=== PATIENT | female | born 1955 | race Caucasian/White ===

== ENCOUNTER 2016-11-24 11:49 | Inpatient (IN) | payer MEDICARE, OTHER ==
[~2016-11-24] VITALS: Ht 165.1 cm; Wt 133.7 kg
[~2016-11-24 11:49] MED LIST: ACTO30TA7 PO; ASPI325T28 PO; BACL-67 PO; BENA10TA2 PO; CLON1TAB PO; COUM1TAB17 PO; COUM2.5T11 PO; GLIM4TAB PO; HYDR200T3 PO; HYDR7.5T66 PO; INVO100T PO; KLON1TAB PO; LEVA750T PO; LEVO137T2 PO; LOVE0.8I3 SC; METF1000 PO; OMEP20CA3 PO; Plaquenil PO; RANI75TA PO; REQU1TAB16 PO; RITU10VLL IV; ROPI1TA PO; ROPI1TAB PO; ROXI1TAB2 PO; SERT50TA PO; SERTRALINE 100 MG TAB PO SCH; SPIR25TA2 PO; TRIL135C6 PO; VICOTAB4 PO; VITA200015 PO; WARF-21 PO; XELJ5TAB PO; ZETI10TA2 PO; ZOLO100T PO; [UNRECOGNIZED DRUG - REMARK] PO
[2016-11-24 12:33] LABS: BASO % 0.9 % (0.0-1.0); EOS # 0.1 K/mm3 (0.0-0.50); LARGE UNSTAINED CELL % 0.7 % (0.0-4.0); LYMPH # 0.6 K/mm3 (1.5-4.5); LYMPH % 15.8 % (24.0-44.0); MEAN CORPUSCULAR HEMOGLOBIN 28.6 pg (27.0-33.0); MEAN CORPUSCULAR VOLUME 89.3 fl (80.0-96.0); MONO # 0.2 K/mm3 (0.0-0.8); MONO % 4.5 % (0.0-5.0); NEUTROPHILS # 2.5 K/mm3 (1.8-7.7); NEUTROPHILS % 74.1 % (36.0-66.0); PLATELET COUNT, AUTOMATED 141 k/mm3 (150-450); RED CELL DISTRIBUTION WIDTH 15.3 % (11.5-14.5); WHITE BLOOD COUNT 3.4 K/mm3 (4.0-10.0)
[2016-11-24 12:50] LABS: ANION GAP 4 MEQ/L (8-16); BLOOD UREA NITROGEN 19 MG/DL (7-18); CALCIUM LEVEL 9.6 MG/DL (8.5-10.1); CARBON DIOXIDE LEVEL 26 MEQ/L (21-32); CHLORIDE LEVEL 108 MEQ/L (98-107); CREATININE FOR GFR 0.97 MG/DL (0.55-1.02); GLOMERULAR FILTRATION RATE > 60.0 (>51); GLUCOSE, FASTING 172 MG/DL (70-105); POTASSIUM SERUM 4.4 MEQ/L (3.5-5.1); SODIUM LEVEL 138 MEQ/L (136-145)
[2016-11-24 12:57] LABS: INR 2.4
[2016-11-24] MEDS ORDERED: GABA-283 PO (12:58)
[2016-11-24] MEDS ORDERED: MIRA1TAB3 PO (12:58)
[2016-11-24] MEDS ORDERED: AZAT5TAB PO (12:58)
[2016-11-24] MEDS ORDERED: ACTO30TA7 PO (12:58)
[2016-11-24] MEDS ORDERED: ACTE400I IV (12:59)
[2016-11-24] MEDS ORDERED: ASPIRIN 81 MG CHEW TABLET PO ONE (13:00)
[2016-11-24] MEDS ORDERED: VITA100066 PO (14:12)
[2016-11-24] MEDS ORDERED: FENO1CAP2 PO (14:12)
[2016-11-24] MEDS ORDERED: PIOG15TA3 PO (14:12)
[2016-11-24] MEDS ORDERED: GABA600T PO (14:12)
[2016-11-24] MEDS ORDERED: TOUJ1.2I SC (14:12)
[2016-11-24] MEDS ORDERED: WARF-18 PO (14:15)
[2016-11-24] MEDS ORDERED: WARF-23 PO (14:16)
--- NOTE | 2016-11-24 14:46 | REP ---
?REASON: History of stroke. COMPARISON: 12/08/2014 the latest prior. The technique utilized in obtaining the radiograph has magnified the cardiac silhouette and accentuated the interstitial markings. The lung murillo are clear and unchanged. The cardiomediastinal silhouette is unchanged. The osseous structures are stable and intact. IMPRESSION: No evidence of acute cardiopulmonary disease. Signed by David Heath DO 11/24/2016 03:25 P
--- NOTE | 2016-11-24 14:49 | REP ---
REASON: CVA. COMPARISON: None. There is either a prominent left frontoparietal sulcus or there is a wedge-shaped area of low density in the left frontoparietal region measuring 2.5 cm. There is no shift of the midline structures. There are no extra-axial fluid collections. The deep white matter is otherwise unremarkable. There is no ventriculomegaly. There is no skull fracture. The imaged paranasal sinuses and mastoid air cells are clear. IMPRESSION: Area of low density in the left frontoparietal region as described above. This potentially represents an area of acute nonhemorrhagic infarction. Signed by David Heath DO 11/24/2016 03:25 P
[2016-11-24 15:03] LABS: CHOLESTEROL LEVEL 218 MG/DL (<200); TRIGLYCERIDES LEVEL 336 MG/DL (<150)
[2016-11-24] MEDS ORDERED: GLUCAGON FOR INJ 1 MG VIAL (J1610) SC PRN (16:00)
[2016-11-24] MEDS ORDERED: GLUCOSE 4 GM CHEW TABLET PO PRN (16:00)
[2016-11-24] MEDS ORDERED: clonazePAM 1 MG TAB PO PRN (16:00)
[2016-11-24] MEDS ORDERED: DEXTROSE 50% 50 ML SYRINGE IV PRN (16:00)
--- NOTE | 2016-11-24 17:30 | REPUSA ---
MRA of the brain Clinical History: Facial Numbness. Technique: [id number] MRA images of the brain were obtained without administration of contrast. 3 -D MIP images were also obtained. Findings: The vascular structures extending from the distal carotid and vertebrobasilar arterial syst ems, through the [place] of [place], demonstrate normal caliber and contour. There is no evidence of an eurysm, stenosis, or thrombosis. Impression: Unremarkable MRA examination of the brain.
--- NOTE | 2016-11-24 17:40 | REPUSA ---
MRI of the Brain clinical history: facial numbness. Technique: Multiecho multiplanar MRI images of the brain were obtained without administration of cont rast. Diffusion weighted images with ADC mapping was also obtained. Findings: The ventricles and sulci are symmetric bilaterally. The brain parenchyma demonstrates tiny foci of T2 hyperintensity in the subcortical white matter, but otherwise demonstrates uniform and normal signal on all sequences. There is no midline shift, mass effect, or extra-axial fluid collection. The midli ne intracranial structures do not demonstrate any gross abnormalities. The cervical cranial junction is intact. The orbits are unremarkable. The visualized paranasal sinuses and mastoid air cells are cl ear. The osseous structures and superficial soft tissues are unremarkable. The vascular structures de monstrate appropriate flow voids. Impression: No acute findings. Tiny sub cortical T2 hyperintense foci likely represent minimal chroni c small vessel ischemic changes. Dr. Ryan was notified of these findings at 5:30 PM on November 24, 2016. The CT described an acute inf arct in the left frontal region, which is not appreciated on the diffusion weighted images on this cu rrent MRI.
[2016-11-24] MEDS: SPIRONOLACTONE 25 MG TAB PO SCH (18:43)
[2016-11-24] MEDS: HumaLOG INSULIN (NovoLOG) PER UNIT SC SCH ×2 (18:44→21:31)
[2016-11-24] MEDS: WARFARIN SOD 5 MG TAB PO SCH (18:44)
[2016-11-24 19:55] VITALS: BP_SYST 120; BP_SYST 125; BP_SYST 157; BP_DIAS 67; BP_DIAS 73; BP_DIAS 80
--- NOTE | 2016-11-24 21:26 | HPE ---
DATE OF ADMISSION: 11/24/2016 REASON FOR ADMISSION: Facial numbness. PRIMARY CARE PROVIDER: Dr. Sims HISTORY OF PRESENT ILLNESS: The patient is a 60-year-old female, past medical history significant for type 2 diabetes, restless leg syndrome, history of deep venous thrombosis (DVT), pulmonary embolus (PE), hypertension, anxiety, rheumatoid arthritis, presented to the emergency room complaining of facial tingling and numbness on the left side that started earlier this morning. The patient stated that yesterday evening she felt like her left eye was droopy but it was not. She woke up this morning with more numbness and tingling over her left side of the face. She presented to the emergency room. Initial imaging CT of the head showed area of low density in the left frontoparietal region potentially representing an area of non hemorrhagic infarct. Dr. Garcia was consulted from the emergency room. He recommended an MRI, MRA of the head and the patient was admitted under hospitalist service. The patient denied any other focal deficits or weakness and denied any dizziness. Denied any blurry vision or double vision. No other symptoms. REVIEW OF SYSTEMS: 12 point review of systems was obtained all of which was negative except for those mentioned above. PAST MEDICAL HISTORY: Significant for Sj gren's disease, rheumatoid arthritis, restless leg syndrome, type 2 diabetes on oral medications, hypothyroidism, hypertension, hyperlipidemia, anxiety, history of DVT and PE on chronic Coumadin. PAST SURGICAL HISTORY: Significant for left knee surgeries, parathyroid surgery and cholecystectomy. ALLERGIES: Patient is allergic to QUININE, reaction nausea, and STATIN reaction, worsening of her restless leg syndrome. SOCIAL HISTORY: The patient used to smoke, quit 18 years ago. Drinks alcohol very rarely. Lives at home with her father living with her. HOME MEDICATIONS: Include: - Actemra 400 mg IV monthly - azathioprine 150 mg at bedtime - baclofen 20 mg at bedtime - benazepril 10 mg daily - Invokana 100 mg daily - vitamin D3 1000 units daily - clonazepam 1 mg by mouth nightly as needed for insomnia - Zetia 10 mg at bedtime - fenofibric acid 135 mg by mouth at bedtime - gabapentin 600 mg by mouth twice a day - Synthroid 137 mcg by mouth daily - metformin 1000 mg by mouth twice a day - pioglitazone 50 mg daily - Mirapex 1 mg twice a day - Zoloft 100 mg by mouth at bedtime - spironolactone 25 mg by mouth twice a day - Toujeo 80 units subcutaneously daily - Coumadin 5 mg 3 days and 2.5 mg on 1 day PHYSICAL FINDINGS: Vital signs: On admission: Temperature 97.4, pulse 92, respiratory rate 18, blood pressure is 142/68, pulse oximetry 95% on room air. HEENT: Pupils equal, round, reactive to light and accommodation. Neck: Supple. No jugular venous distention (JVD). Lungs: Clear to auscultation bilaterally. Abdomen: Soft, nontender, nondistended. Cardiac: Regular rate and rhythm. Extremities: No clubbing, cyanosis or edema. Neurologic: Cranial nerves II-XII grossly intact. No focal deficits in upper or lower extremities. Normal speech. Per patient she has normal gait. Denies any gait instability. LABORATORY FINDINGS: WBC 3.4, hemoglobin 15.6, hematocrit 48.7, platelet count 141, sodium 138, potassium 4.4, chloride 108, BUN 19, creatinine 0.97, fasting glucose 172, troponin less than 0.02, triglycerides 336, cholesterol 218, LDL 110, TSH 1.8. IMAGING STUDIES: CT scan as above. Chest x-ray showed no evidence of acute cardiopulmonary disease. Brain MRI, official report is not available yet, but Dr. Preston from radiology called me and the patient has no acute findings on MRI or MRA. ASSESSMENT/PLAN: 1. Facial numbness, unknown etiology at this time. Dr. Garcia is consulted. The patient's MRI/MRA showed no evidence of acute nonhemorrhagic strokes. We will continue to monitor the patient on telemetry. Continue neurologic checks every 4 hours. Carotid ultrasound is pending. Echo is pending. 2. History of hypertension. Continue the patient's home medication. 3. History of diabetes. We will start the patient on consistent carbohydrate diet and insulin sliding scale before food and at bedtime. 4. History of hyperlipidemia. Continue the patient's home medication. 5. History of anxiety. Continue the patient's home medication. 6. History of pulmonary embolus (PE), deep venous thrombosis (DVT). The patient is to be chronically on anticoagulation. Her INR today is 2.4. Will continue the patient on Coumadin 5 mg by mouth daily. 7. Restless leg syndrome. 8. Rheumatoid arthritis. 9. Sj gren's disease. The patient follows up with rheumatology in [place]. 10. Hypothyroidism. Continue the patient's home medication. 11. Deep venous thrombosis (DVT) prophylaxis. The patient is normally on Coumadin daily. The patient will be seen by Dr. Michelle Solis in the morning.
[2016-11-24] MEDS: SERTRALINE 100 MG TAB PO SCH (21:55)
[2016-11-24] MEDS: EZETIMIBE 10 MG TAB (ZETIA) PO SCH (21:55)
[2016-11-24] MEDS: GABAPENTIN 300 MG CAP PO SCH (21:55)
[2016-11-24] MEDS: PRAMIPEXOLE 1 MG TAB PO SCH (21:55)
[2016-11-24] MEDS: azaTHIOprine 50 MG TAB (J7500) PO SCH (21:56)
[2016-11-24] MEDS: BACLOFEN 10 MG TAB PO SCH (21:56)
[2016-11-25 00:23] VITALS: BP 104/52
[2016-11-25 04:00] VITALS: BP 116/69
[2016-11-25] MEDS: LEVOTHYROXINE 0.137 MG TAB (137MCG) PO SCH (06:32)
--- NOTE | 2016-11-25 06:32 | REP ---
Stroke symptoms. Echogenic material is seen within and along the parada of the carotid arteries particularly in the carotid bulb region bilaterally. Some of the echogenic material casts an acoustic shadow consistent with calcific deposition. Right Left CCA Systolic 73.2 49.0 cm/s CCA Diastolic 15.8 8.9 cm/s ICA Systolic 59.2 50.0 cm/s ICA Diastolic 11.9 9.3 cm/s ICA/CCA Ratio 0.81 1.02 cm/s Analysis of the spectral wave forms shows antegrade flow in both vertebral arteries. There is no evidence of significant spectral broadening. IMPRESSION: Both soft and calcified plaque causes less than 50% stenosis in the internal carotid artery bilaterally. This is according the NASCET consensus criteria. Signed by David Heath DO 11/25/2016 03:40 P
[2016-11-25] MEDS: HumaLOG INSULIN (NovoLOG) PER UNIT SC SCH ×4 (07:24→21:00)
[2016-11-25 07:51] LABS: INR 2.53
[2016-11-25 08:00] VITALS: BP 123/56
[2016-11-25 08:04] LABS: BASO % 0.6 % (0.0-1.0); EOS # 0.2 K/mm3 (0.0-0.50); EOS % 5.2 % (0.0-3.0); LARGE UNSTAINED CELL # 0.1 K/mm3 (0.0-0.4); LARGE UNSTAINED CELL % 1.6 % (0.0-4.0); LYMPH # 0.6 K/mm3 (1.5-4.5); LYMPH % 19.7 % (24.0-44.0); MEAN CORPUSCULAR HEMOGLOBIN 29.1 pg (27.0-33.0); MEAN CORPUSCULAR HGB CONC 32.6 g/dl (32.0-36.5); MEAN CORPUSCULAR VOLUME 89.2 fl (80.0-96.0); MONO # 0.2 K/mm3 (0.0-0.8); MONO % 6.1 % (0.0-5.0); NEUTROPHILS # 2.2 K/mm3 (1.8-7.7); NEUTROPHILS % 66.9 % (36.0-66.0); PLATELET COUNT, AUTOMATED 119 k/mm3 (150-450); RED CELL DISTRIBUTION WIDTH 15.4 % (11.5-14.5); WHITE BLOOD COUNT 3.2 K/mm3 (4.0-10.0)
[2016-11-25 08:20] LABS: ALBUMIN 3.7 GM/DL (3.2-5.2); ALBUMIN/GLOBULIN RATIO 1.23 (1.00-1.93); ALKALINE PHOSPHATASE 84 U/L (45-117); ALT/SGPT 53 U/L (12-78); ANION GAP 8 MEQ/L (8-16); AST/SGOT 58 U/L (15-37); BILIRUBIN,TOTAL 0.7 MG/DL (0.2-1.0); BLOOD UREA NITROGEN 19 MG/DL (7-18); CALCIUM LEVEL 9.8 MG/DL (8.5-10.1); CARBON DIOXIDE LEVEL 27 MEQ/L (21-32); CHLORIDE LEVEL 104 MEQ/L (98-107); CREATININE FOR GFR 0.97 MG/DL (0.55-1.02); GLOMERULAR FILTRATION RATE > 60.0 (>51); GLUCOSE, FASTING 257 MG/DL (70-105); POTASSIUM SERUM 4.7 MEQ/L (3.5-5.1); SODIUM LEVEL 139 MEQ/L (136-145); TOTAL PROTEIN 6.7 GM/DL (6.4-8.2)
[2016-11-25] MEDS: PRAMIPEXOLE 1 MG TAB PO SCH ×2 (09:02→21:21)
[2016-11-25] MEDS: VITAMIN D 1,000 INTERNATIONAL UNITS TABLET PO SCH (09:02)
[2016-11-25] MEDS: SPIRONOLACTONE 25 MG TAB PO SCH ×2 (09:02→17:49)
[2016-11-25] MEDS: GABAPENTIN 300 MG CAP PO SCH ×2 (09:02→21:21)
[2016-11-25 11:50] VITALS: BP 114/66
--- NOTE | 2016-11-25 15:07 | IPN ---
DATE: 11/25/2016 SUBJECTIVE: This is a 60-year-old female who was admitted overnight for left facial paresthesia. She had CT of the head that was suggestive of CVA; however, MRI of the brain was negative. Since admission, reports intermittent episodes of left facial numbness, which as significantly improved. Denies any blurry vision, diplopia, transient vision loss, nausea, weakness or paresthesia to her extremities. Endorses migraine headache, which is worse with light. REVIEW OF SYSTEMS: Denies any chest pain, shortness of breath, palpitations, fevers, chills, night sweats, diarrhea or constipation. OBJECTIVE: VITAL SIGNS: Blood pressure 114/66, heart rate 68, temperature 97.7, respiration rate 18, pulse oximetry 93% on room air. Intake and output the last 24 hours is 480 and 1100. Body Mass Index (BMI) 30.6. GENERAL: The patient is lying in bed comfortable. No acute distress. She is alert, awake, oriented times three. Pleasant, cooperative. HEENT: Normocephalic, atraumatic. Moist oral mucosa. Fair dentition with some missing teeth. Extraocular movements intact. Pupils are equal and reactive to light. Neck is supple. Large neck. No jugular venous distention (JVD). Trachea midline. CHEST: Symmetric chest rise. No accessory muscle use. Breath sounds were diminished bilaterally but clear sounding. HEART: Regular rate and rhythm with normal S1, S2. Could not appreciate murmurs, rubs or gallops. ABDOMEN: Obese. Nontender, nondistended. Bowel wounds present. No guarding. No rebound. Mid abdomen with healed incisional scar, reportedly it is from her prior cholecystectomy many years ago. EXTREMITIES: No pedal edema. Pedal pulses present bilaterally. NEUROLOGIC: Cranial nerves II through XII grossly intact. Strength is 5/5 in all extremities. Sensory is intact. PSYCHIATRIC: Normal affect. SKIN: Without rashes or lesions. LABORATORY DATA: WBC 3.2, hemoglobin 15.3, hematocrit 47, platelets 119, decreased from 141 yesterday. Sodium 139, potassium 4.7, chloride 104, carbon dioxide 27, BUN 19, creatinine 0.97, fasting glucose 257, calcium 9.8, magnesium 2, total bilirubin 0.7, AST 58, ALT 53, alkaline phosphatase 84. Cardiac markers, first set, negative. PT 27.3, INR 2.53. Fingerstick glucoses have been ranging [address] of the head showed low density in the left frontal parietal region, potentially represents an area of acute non hemorrhagic infarction. Chest x-ray without evidence of acute cardiopulmonary disease. Brain MRI showed vasculature structure extending from the distal carotid and vertebral basilar systems through the [place] of [place] demonstrating normal caliber and contour, no evidence of aneurysm, stenosis or thrombosis. MRI of the brain showed no acute findings. Tiny subcortical T2 hyperintensity, likely represents minimal chronic small vessel ischemic changes. CT described an acute infarct on the left frontal region is not appreciated on effusion weighted images on MRI. Vascular duplex showed both soft and calcified plaque causing less than 50% stenosis in the internal carotid arteries bilaterally. IMPRESSION/PLAN: Ms. Pina is a 60-year-old female with a past medical history of pulmonary embolism and deep vein thrombosis (DVT), rheumatoid arthritis, who presented yesterday for left facial paresthesia. 1. Left facial paresthesia. Etiology unclear. Her episode has since resolved. MRI did not show evidence of an infarct. For now, the patient will be continued to be monitored closely on telemetry. We will recheck cardiac markers. Echo is pending. Followup neurology recommendations. In the meantime, continue Zebeta. She could not tolerate statin in the past due to worsening her restless leg disorder. Blood pressure continues to be reasonable. 2. Hypertension. Continue spironolactone twice a day. 3. Type 2 diabetes. Continue insulin sliding scale and carbohydrate diet. 4. History of PEE and deep vein thrombosis (DVT). The patient reportedly has a recurrent history of this and has been on life long anticoagulation. INR continues to be therapeutic. Continue Coumadin 5 mg by mouth daily. 5. Rheumatoid arthritis. Continue Imuran 150 mg at night. Followup with director transition in [place] and also receives Actemra, previously was on 400 mg and the dose was recently increased to 800 mg monthly. Her last injection was two weeks ago. 6. Anxiety and depression. Continue Zoloft 100 mg at night. 7. Hypothyroidism. Continue levothyroxine 137 mcg daily. 8. Diabetic neuropathy. Continue gabapentin 600 mg twice a day. 9. Restless leg syndrome. Continue Baclofen 20 mg at night, Mirapex 1 mg twice a day. 10. Vitamin D deficiency. Continue vitamin D supplementation. 11. Obstructive sleep apnea. Continue home continuous positive airway pressure (CPAP). The patient has brought in her home machine. 12. Irritable bowel syndrome. Symptoms have been well controlled. 13. Thrombocytopenia. Platelet level today shows mildly decreased compared to admission. We will continue to monitor for now. The patient is on Coumadin for a history of pulmonary embolism and deep vein thrombosis (DVT). No evidence of bleeding. 14. DVT prophylaxis. She is on Coumadin therapeutic dose for history of PE and DVT. My preceptor for this patient encounter was Dr. Solis. The preceptor was physically present in the building during the encounter and was fully available. As needed, all aspects of the patient interview, examination, medical decision making process, and medical care plan development were reviewed and approved by the preceptor. The preceptor is aware and concurs with the plan as stated in the body of this note and will attest to such by his/her cosignature.
[2016-11-25 16:00] VITALS: BP 152/71
[2016-11-25] MEDS: WARFARIN SOD 5 MG TAB PO SCH (17:49)
[2016-11-25 20:39] VITALS: BP 132/61
[2016-11-25] MEDS: SERTRALINE 100 MG TAB PO SCH (21:21)
[2016-11-25] MEDS: azaTHIOprine 50 MG TAB (J7500) PO SCH (21:21)
[2016-11-25] MEDS: BACLOFEN 10 MG TAB PO SCH (21:21)
[2016-11-25] MEDS: EZETIMIBE 10 MG TAB (ZETIA) PO SCH (21:21)
[2016-11-25] MEDS ORDERED: SLF 3 ML SYR IV PRN (22:15)
[2016-11-26 00:05] VITALS: BP 135/73
[2016-11-26 04:19] VITALS: BP 125/73
--- NOTE | 2016-11-26 04:40 | ECGEPIP ---
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
[2016-11-26 05:24] LABS: BASO % 0.9 % (0.0-1.0); EOS # 0.2 K/mm3 (0.0-0.50); EOS % 5.4 % (0.0-3.0); LARGE UNSTAINED CELL # 0.1 K/mm3 (0.0-0.4); LARGE UNSTAINED CELL % 2.1 % (0.0-4.0); LYMPH # 0.8 K/mm3 (1.5-4.5); LYMPH % 19.3 % (24.0-44.0); MEAN CORPUSCULAR HGB CONC 33.1 g/dl (32.0-36.5); MEAN CORPUSCULAR VOLUME 87.8 fl (80.0-96.0); MONO # 0.3 K/mm3 (0.0-0.8); MONO % 6.6 % (0.0-5.0); NEUTROPHILS # 2.6 K/mm3 (1.8-7.7); NEUTROPHILS % 65.7 % (36.0-66.0); PLATELET COUNT, AUTOMATED 125 k/mm3 (150-450); RED CELL DISTRIBUTION WIDTH 15.2 % (11.5-14.5); WHITE BLOOD COUNT 3.9 K/mm3 (4.0-10.0)
[2016-11-26 05:31] LABS: INR 2.58
[2016-11-26] MEDS: LEVOTHYROXINE 0.137 MG TAB (137MCG) PO SCH (05:45)
[2016-11-26 05:48] LABS: ALBUMIN 3.6 GM/DL (3.2-5.2); ALBUMIN/GLOBULIN RATIO 1.29 (1.00-1.93); ALKALINE PHOSPHATASE 83 U/L (45-117); ALT/SGPT 53 U/L (12-78); ANION GAP 8 MEQ/L (8-16); AST/SGOT 55 U/L (15-37); BILIRUBIN,TOTAL 0.6 MG/DL (0.2-1.0); BLOOD UREA NITROGEN 19 MG/DL (7-18); CALCIUM LEVEL 9.1 MG/DL (8.5-10.1); CARBON DIOXIDE LEVEL 27 MEQ/L (21-32); CHLORIDE LEVEL 106 MEQ/L (98-107); GLOMERULAR FILTRATION RATE > 60.0 (>51); GLUCOSE, FASTING 178 MG/DL (70-105); MAGNESIUM LEVEL 1.7 MG/DL (1.8-2.4); POTASSIUM SERUM 3.8 MEQ/L (3.5-5.1); SODIUM LEVEL 141 MEQ/L (136-145); TOTAL PROTEIN 6.4 GM/DL (6.4-8.2)
[2016-11-26] MEDS ORDERED: SLF 3 ML SYR IV SCH (06:00)
[2016-11-26] MEDS: MAG SULF 1GM/100ML (MAG RUN) 1 GM in APPROPRIATE DILUENT 1 EA IV SCH ×2 (06:39→08:07)
[2016-11-26 08:00] VITALS: BP 133/68
[2016-11-26] MEDS: GABAPENTIN 300 MG CAP PO SCH (08:08)
[2016-11-26] MEDS: HumaLOG INSULIN (NovoLOG) PER UNIT SC SCH (08:08)
[2016-11-26] MEDS: PRAMIPEXOLE 1 MG TAB PO SCH (08:08)
[2016-11-26] MEDS: VITAMIN D 1,000 INTERNATIONAL UNITS TABLET PO SCH (08:08)
[2016-11-26] MEDS: SPIRONOLACTONE 25 MG TAB PO SCH (08:08)
--- NOTE | 2016-11-26 13:21 | DSES ---
DATE OF ADMISSION: 11/24/2016 DATE OF DISCHARGE: PRIMARY CARE PROVIDER: Dr. Sims CONSULTANTS: Dr. Palomino of neurology PROCEDURES: None. COMPLICATIONS: None. DIAGNOSTIC IMAGING: CT of the head showed an area of low density in the left frontal parietal region, potentially represents an area of acute non hemorrhagic infarction. MRA of the brain was unremarkable. MRI reports no acute findings. Tiny subcortical T2 hyperintense foci, likely represents minimal chronic small vessel ischemic changes. Duplex ultrasound showed both soft and calcified plaque causing less than 50% stenosis in the internal carotid artery bilaterally. PRIMARY ADMITTING DIAGNOSES: 1. Complex migraine headache with transient left facial numbness. 2. Hypertension. 3. Type 2 diabetes. 4. Hypomagnesemia. SECONDARY ADMITTING DIAGNOSES: 1. History of pulmonary embolism, deep vein thrombosis (DVT). 2. Rheumatoid arthritis. 3. Anxiety and depression. 4. Hypothyroidism. 5. Diabetic nephropathy. 6. Restless leg syndrome. 7. Vitamin D deficiency. 8. Obstructive sleep apnea, compliant with CPAP. 9. Irritable bowel syndrome. 10. Morbid obesity with Body Mass Index (BMI) 49. BRIEF HOSPITAL COURSE: Ms. Pina is a pleasant 60-year-old female with a past medical history as mentioned above, who presented to the emergency department on 11/24/2016 with complaints of left facial numbness that started on the morning of presentation. States the evening prior to admission started to feeling as her eye was droopy and the following morning woke up and experienced paresthesia to the left face. She denies any other neurologic symptoms besides from her left facial paresthesias. Because of her symptoms she was admitted and further workup, including CT, MRI imaging was performed, as mentioned. She was evaluated by Dr. Palomino, neurology, and because of the transient nature of her symptoms and also history of migraine headaches, it is believed that her symptoms were likely secondary to complex migraine headache with transient left facial paresthesias. Since admission her symptoms essentially resolved. She did have an echocardiogram performed; however, at the time of discharge the result is pending. For her history of hypertension, her blood pressure was well controlled and her home medications were resumed. She was found to be thrombocytopenic with lowest platelet of 119; however, because she was asymptomatic no aggressive intervention was pursued. Her platelet level did improve at the time of discharge. For her other medical conditions, her home medications were held with the exception of her diabetes where her home hypoglycemic agents were held and she was placed on insulin sliding scale. The patient may resume her home medications at the time of discharge. PHYSICAL EXAMINATION: At the time of discharge, vital signs: Blood pressure 133/68, heart rate 69, temperature 96.5, respiratory rate 20, pulse oximetry 92% on room air. Intake and output the last 24 hours is 720 and 1500. GENERAL: The patient was lying in bed comfortable. No acute distress. Alert, awake, oriented times three. Pleasant, cooperative, obese appearing. HEENT: Normocephalic, atraumatic. Moist oral mucosa. Extraocular movements intact. No focal deficits appreciated. NECK: Supple. Trachea midline. Large neck. Could not appreciate jugular venous distention (JVD) secondary to large neck size. CHEST: Symmetric chest rise. No accessory muscle use. Breath sounds were diminished bilateraly, likely secondary to her body habitus. HEART: Distant sounding but regular. Could not appreciate murmurs, rubs or gallops. ABDOMEN: Obese but nontender, nondistended. Bowel sounds present. No guarding. No rebound. EXTREMITIES: No pedal edema. Pedal pulses present bilateraly. NEUROLOGIC: Strength is 5/5 in all extremities. Sensory intact. No focal deficits appreciated. Cranial nerves II-XII grossly intact. Did not assess gait. LABORATORY FINDINGS: WBC 3.8, hemoglobin 15.4, hematocrit 46.6, platelet count 125, improved from yesterday 119, sodium 141, potassium 3.8, chloride 106, carbon dioxide 27, BUN 19, creatinine 0.9, glucose 178, magnesium 1.7, AST 55, ALT 53, alkaline phosphatase 83. PT 27.7, INR 2.58. DISPOSITION: Home. CONDITION: Stable. ACTIVITY: As tolerated. DIET: Carbohydrate consistency diet. FOLLOWUP: Dr. Sims in one week. Dr. Garcia as scheduled. Please have primary care provider followup with echocardiogram, which is currently pending at the time of discharge. DISCHARGE INSTRUCTIONS: The patient is instructed to return to the hospital if she has worsening or recurrent symptoms or anything else concerning to the patient and family. All of this was explained to the patient at the time of discharge and all questions answered. Time spent: 35 minutes. My preceptor for this patient encounter was Dr. Sanchez. The preceptor was physically present in the building during the encounter and was fully available. As needed, all aspects of the patient interview, examination, medical decision making process, and medical care plan development were reviewed and approved by the preceptor. The preceptor is aware and concurs with the plan as stated in the body of this note and will attest to such by his/her cosignature.
--- NOTE | 2016-11-26 18:13 | ECHO ---
DATE OF PROCEDURE: 11/25/2016 REFERRING PHYSICIAN: Allyson Ryan MD PATIENT LOCATION: Room 3216 REASON FOR ECHOCARDIOGRAM: CVA. 2D MEASUREMENTS: IVS: 1.2 cm LV: 4.9 cm LVPW: 1.2 cm LA: 3.9 cm Aorta: 3.5 cm IVC: 2.3 cm DOPPLER MEASUREMENTS: Peak velocity across the aortic valve: 1.5 m/s Peak velocity across the LVOT: 0.93 m/s Mitral E: 0.72, Mitral A: 0.77, with a ratio of 0.9 2D COMMENTS: 1. Normal left ventricular size, wall thickness and normal global left ventricular systolic function. The estimated left ventricular systolic ejection fraction is 55%. 2. Normal left atrium. Normal right atrium and right ventricle. 3. The atrial septum appeared to be normal without evidence of defect or shunt. 4. Normal aortic root. 5. No pericardial effusion seen. 6. Normal aortic valve. Mildly calcified mitral annulus with normal anterior mitral valve leaflet motion. Normal tricuspid valve. The pulmonic valve and proximal pulmonary artery branches were not well visualized. 7. The inferior vena cava was mildly enlarged, central venous pressure might be elevated. IMPRESSION: 1. Low normal global left ventricular systolic function. There are features of left ventricular diastolic dysfunction, grade 1. 2. Mitral annulus calcification with trace mitral regurgitation. 3. Trace tricuspid regurgitation. 4. There are features of elevated central venous pressure, the inferior vena cava was mildly enlarged.
== END 2016-11-26 11:40 | disposition home or self-care (01) | DRG 103 ==
LOC: M ED 13:01 → M ED INP 13:51 → M PCU 11-25 16:01
PROVIDERS: ADMIT Internal Medicine; ATTEND Internal Medicine
DX: G43.109 Migraine with aura, not intractable, without status migrainosus (principal); Z68.42 Body mass index [BMI] 45.0-49.9, adult; R20.9 Unspecified disturbances of skin sensation; I10 Essential (primary) hypertension; E11.21 Type 2 diabetes mellitus with diabetic nephropathy; E66.01 Morbid (severe) obesity due to excess calories; E83.42 Hypomagnesemia; G47.33 Obstructive sleep apnea (adult) (pediatric); F41.9 Anxiety disorder, unspecified; E03.9 Hypothyroidism, unspecified; F32.9 Major depressive disorder, single episode, unspecified; E55.9 Vitamin D deficiency, unspecified; G25.81 Restless legs syndrome; M06.9 Rheumatoid arthritis, unspecified; Z86.711 Personal history of pulmonary embolism; Z86.718 Personal history of other venous thrombosis and embolism; Z79.01 Long term (current) use of anticoagulants; Z79.899 Other long term (current) drug therapy; D69.6 Thrombocytopenia, unspecified

== ENCOUNTER 2017-01-23 17:31 | Emergency (ER) | payer MEDICARE, OTHER ==
[~2017-01-23] VITALS: Ht 165.1 cm; Wt 139.7 kg
[~2017-01-23 17:31] MED LIST changes: +ACTE400I IV; +AZAT5TAB PO; +FENO1CAP2 PO; +GABA-283 PO; +GABA600T PO; +MIRA1TAB3 PO; +PIOG15TA3 PO; -SERTRALINE 100 MG TAB PO SCH; +TOUJ1.2I SC; +VITA100066 PO; +WARF-18 PO; +WARF-23 PO
[2017-01-23] MEDS ORDERED: ALBUTEROL SULFATE 2.5 MG/0.5 ML INH NEB SOLN NEB ONE (19:30)
[2017-01-23] MEDS ORDERED: ALPRAZolam 0.25 MG TAB PO ONE (19:30)
[2017-01-23 19:55] LABS: BASO % 0.6 % (0.0-1.0); EOS # 0.2 K/mm3 (0.0-0.50); EOS % 3.8 % (0.0-3.0); LARGE UNSTAINED CELL % 0.6 % (0.0-4.0); LYMPH # 0.9 K/mm3 (1.5-4.5); LYMPH % 16.8 % (24.0-44.0); MEAN CORPUSCULAR HEMOGLOBIN 30.8 pg (27.0-33.0); MEAN CORPUSCULAR HGB CONC 33.9 g/dl (32.0-36.5); MEAN CORPUSCULAR VOLUME 90.8 fl (80.0-96.0); MONO # 0.2 K/mm3 (0.0-0.8); MONO % 4.4 % (0.0-5.0); NEUTROPHILS # 3.6 K/mm3 (1.8-7.7); NEUTROPHILS % 73.8 % (36.0-66.0); PLATELET COUNT, AUTOMATED 156 k/mm3 (150-450); RED CELL DISTRIBUTION WIDTH 14.9 % (11.5-14.5); WHITE BLOOD COUNT 4.8 K/mm3 (4.0-10.0)
[2017-01-23 20:17] LABS: CALCIUM LEVEL 9.9 MG/DL (8.5-10.1); CREATININE FOR GFR 1.18 MG/DL (0.55-1.02); GLOMERULAR FILTRATION RATE 49.9 (>51); POTASSIUM SERUM 4.1 MEQ/L (3.5-5.1)
[2017-01-23] MEDS ORDERED: ISOVUE-370 76% 100ML VIAL (Q9967) As Ordered ONE (20:28)
--- NOTE | 2017-01-23 21:10 | REPUSA ---
CT angiogram of the chest Clinical statement: Chest pain and shortness of breath. Technique: Multiple axial CT images were obtained from the thoracic inlet through the upper abdomen a fter a bolus administration of nonionic intravenous contrast. Coronal and sagittal reconstructions we re also obtained. Comparison: 01/18/2014. Findings: The pulmonary arteries are well-opacified with contrast, with no intraluminal filling defec ts to suggest embolism. The thoracic aorta is unremarkable. Thyroid gland is within normal limits. Th ere is no thoracic lymphadenopathy. There are no pericardial or pleural effusions. The lungs are erasmo r. Limited imaging of the upper abdomen is unremarkable. The liver is enlarged. There are no suspicio us osseous lesions. Impression: 1. No evidence of pulmonary embolism. 2. No acute infiltrates. 3. Hepatomegaly.
[2017-01-23 21:51] VITALS: BP 130/69
== END 2017-01-23 21:52 | disposition home or self-care (01) ==
LOC: M ED 18:34
DX: F41.0 Panic disorder [episodic paroxysmal anxiety] (principal); R16.0 Hepatomegaly, not elsewhere classified; E10.9 Type 1 diabetes mellitus without complications; F32.9 Major depressive disorder, single episode, unspecified; Z87.442 Personal history of urinary calculi; Z86.718 Personal history of other venous thrombosis and embolism; Z87.891 Personal history of nicotine dependence; Z79.4 Long term (current) use of insulin; Z79.84 Long term (current) use of oral hypoglycemic drugs; Z79.899 Other long term (current) drug therapy; Z88.8 Allergy status to other drugs, medicaments and biological substances
CPT/HCPCS: 71275; 80048; 85025; 94640; 99283; Q9967

== ENCOUNTER → 2017-05-08 | Outpatient (CLI) | payer MEDICARE, OTHER ==
[~2017-05-08] MED LIST changes: +ACTO30TA15 PO; -ACTO30TA7 PO; +ARTI99.0 OU; +AZAT50TA2 PO; -AZAT5TAB PO; -BACL-67 PO; +BACL1TAB9 PO; -BENA10TA2 PO; +BENA10TA6 PO; +BUSP10TA PO; -COUM2.5T11 PO; +COUM2.5T17 PO; +DOXY-278 PO; +DOXY100T PO; -LEVA750T PO; +LEVA750T7 PO; -METF1000 PO; +METF10004 PO; +NORCOTAB PO; +SENN1TAB2 PO; +TYLE500T78 PO; -ZETI10TA2 PO; +ZETI10TA30 PO
[2017-05-08 18:00] LABS: ALT/SGPT 68 U/L (12-78); AST/SGOT 80 U/L (15-37)
== END ==
LOC: M WUC 10:54
PROVIDERS: ATTEND Physician Assistant Medical
DX: R94.5 Abnormal results of liver function studies (principal)

== ENCOUNTER → 2017-06-24 | Outpatient (CLI) | payer MEDICARE, OTHER ==
[2017-06-24 13:31] LABS: BASO % 0.7 % (0.0-1.0); EOS # 0.1 10^3/uL (0.0-0.50); EOS % 2.2 % (0.0-3.0); IMMATURE GRANULOCYTE % 0.5 % (0-0); LYMPH % 18.6 % (24.0-44.0); MEAN CORPUSCULAR HEMOGLOBIN 29.5 pg (27.0-33.0); MEAN CORPUSCULAR VOLUME 92.2 fl (80.0-96.0); MONO # 0.3 10^3/uL (0.0-0.8); MONO % 5.4 % (0.0-5.0); NEUTROPHILS % 72.6 % (36.0-66.0); PLATELET COUNT, AUTOMATED 227 10^3/uL (150-450); RED CELL DISTRIBUTION WIDTH 13.2 % (11.5-14.5); WHITE BLOOD COUNT 5.6 10^3/uL (4.0-10.0)
[2017-06-24 14:00] LABS: ALT/SGPT 51 U/L (12-78); AST/SGOT 48 U/L (7-37); CREATININE FOR GFR 1.26 MG/DL (0.55-1.02); GLOMERULAR FILTRATION RATE 46.3 (>51)
[2017-06-24 14:21] LABS: ERYTHROCYTE SEDIMENTATION RATE 3 mm/hr (0-30)
== END ==
LOC: M WUC 10:46
PROVIDERS: ATTEND Physician Assistant Medical
DX: R94.5 Abnormal results of liver function studies (principal)

== ENCOUNTER 2018-04-03 11:59 | Emergency (ER) | payer MEDICARE, OTHER ==
[2018-04-03 14:14] LABS: BASO % 0.3 % (0.0-1.0); EOS % 0.3 % (0.0-3.0); HEMATOCRIT 46.2 % (36.0-47.0); HEMOGLOBIN 15.7 g/dl (12.0-15.5); IMMATURE GRANULOCYTE % 0.4 % (0-3.0); LYMPH # 0.4 10^3/uL (1.5-4.5); LYMPH % 4.1 % (24.0-44.0); MEAN CORPUSCULAR VOLUME 88.2 fl (80.0-96.0); MONO # 0.6 10^3/uL (0.0-0.8); MONO % 6.1 % (0.0-5.0); NEUTROPHILS % 88.8 % (36.0-66.0); PLATELET COUNT, AUTOMATED 184 10^3/uL (150-450); RED BLOOD COUNT 5.24 10^6/uL (4.00-5.40); RED CELL DISTRIBUTION WIDTH 14.7 % (11.5-14.5); WHITE BLOOD COUNT 10.1 10^3/uL (4.0-10.0)
[2018-04-03 14:36] LABS: ANION GAP 9 MEQ/L (8-16); BLOOD UREA NITROGEN 23 MG/DL (7-18); CALCIUM LEVEL 10.6 MG/DL (8.8-10.2); CARBON DIOXIDE LEVEL 20 MEQ/L (21-32); CHLORIDE LEVEL 107 MEQ/L (98-107); GLOMERULAR FILTRATION RATE 44.5 (>45); GLUCOSE, FASTING 253 MG/DL (70-100); POTASSIUM SERUM 4.4 MEQ/L (3.5-5.1); SODIUM LEVEL 136 MEQ/L (136-145)
== END 2018-04-03 15:24 | disposition home or self-care (01) ==
LOC: M ED 11:59
DX: N61.1 Abscess of the breast and nipple (principal)
CPT/HCPCS: 80048

== ENCOUNTER → 2018-07-20 | Outpatient (REF) | payer MEDICARE, OTHER ==
[~2018-07-20] MED LIST changes: +ASPI-222 PO; -ASPI325T28 PO; -CLON1TAB PO; +CLON1TAB8 PO; -DOXY-278 PO; +DOXY-350 PO; -GABA-283 PO; +GABA-845 PO; -PIOG15TA3 PO; +PIOG1TAB36 PO; +SPIR-10 PO; -SPIR25TA2 PO
[2018-07-20 11:42] LABS: BASO % 0.6 % (0.0-1.0); EOS # 0.2 10^3/uL (0.0-0.50); EOS % 3.1 % (0.0-3.0); HEMATOCRIT 48.8 % (36.0-47.0); HEMOGLOBIN 15.5 g/dl (12.0-15.5); LYMPH # 0.9 10^3/uL (1.5-4.5); LYMPH % 18.1 % (24.0-44.0); MEAN CORPUSCULAR HEMOGLOBIN 27.9 pg (27.0-33.0); MEAN CORPUSCULAR HGB CONC 31.8 g/dl (32.0-36.5); MEAN CORPUSCULAR VOLUME 87.8 fl (80.0-96.0); MONO # 0.3 10^3/uL (0.0-0.8); MONO % 6.3 % (0.0-5.0); NEUTROPHILS # 3.5 10^3/uL (1.8-7.7); NEUTROPHILS % 71.5 % (36.0-66.0); PLATELET COUNT, AUTOMATED 214 10^3/uL (150-450); RED BLOOD COUNT 5.56 10^6/uL (4.00-5.40); WHITE BLOOD COUNT 4.9 10^3/uL (4.0-10.0)
[2018-07-20 12:18] LABS: ERYTHROCYTE SEDIMENTATION RATE 3 mm/hr (0-30)
[2018-07-20 12:19] LABS: ALBUMIN 3.7 GM/DL (3.2-5.2); ALT/SGPT 44 U/L (12-78); BILIRUBIN,TOTAL 0.5 MG/DL (0.2-1.0); BLOOD UREA NITROGEN 27 MG/DL (7-18); C REACTIVE PROTEIN QUANTITATIV 0.46 MG/DL (0.00-0.30); CALCIUM LEVEL 9.5 MG/DL (8.8-10.2); CARBON DIOXIDE LEVEL 26 MEQ/L (21-32); CHLORIDE LEVEL 104 MEQ/L (98-107); CREATININE FOR GFR 1.04 MG/DL (0.55-1.30); GLOMERULAR FILTRATION RATE 57.5 (>45); GLUCOSE, FASTING 129 MG/DL (70-100); HEPATITIS B SURFACE ANTIBODY NEGATIVE (POSITIVE); POTASSIUM SERUM 4.6 MEQ/L (3.5-5.1); RHEUMATOID FACTOR QUANT < 10.0 IU/ML (<15.0); SODIUM LEVEL 137 MEQ/L (136-145); TOTAL PROTEIN 7.1 GM/DL (6.4-8.2)
[2018-07-20 12:50] LABS: HEPATITIS C VIRUS ABY INDEX 0.1 INDEX (<0.8)
[2018-07-23 00:06] LABS: CYCLIC CITRULLINATED PEPTIDE 3 units (0-19); HEPATITIS B CORE ANTIBODY IGG Negative (Negative)
== END ==
LOC: M LABDRAW1 10:14
PROVIDERS: ATTEND Internal Medicine Rheumatology
DX: M05.79 Rheumatoid arthritis with rheumatoid factor of multiple sites without organ or systems involvement (principal); M15.0 Primary generalized (osteo)arthritis
CPT/HCPCS: 36415; 80053; 85025; 85652; 86140; 86200; 86431; 86704; 86706; 86803; G0463

== ENCOUNTER → 2018-11-10 | Outpatient (REF) | payer MEDICARE, OTHER ==
[~2018-11-10] MED LIST changes: -GABA600T PO; +GABA600T4 PO; +HYDR-3715 PO; -NORCOTAB PO; +SERT-141 PO; -SERT50TA PO
[2018-11-10 17:34] LABS: CREATININE, URINE 49.5 MG/DL; MAU/CREAT RATIO 18.1 MCG/MG (0.0-30.0)
== END ==
LOC: M LABDRAW1 16:29
PROVIDERS: ATTEND Nurse Practitioner Family
DX: E11.65 Type 2 diabetes mellitus with hyperglycemia (principal)

== ENCOUNTER → 2019-02-26 | Outpatient (CLI) | payer MEDICARE, OTHER ==
[~2019-02-26] MED LIST changes: -BENA10TA6 PO; +BENA10TA9 PO; +FENO135C6 PO; -FENO1CAP2 PO; -OMEP20CA3 PO; +OMEP20CA4 PO; -SENN1TAB2 PO; +SENN1TAB40 PO
--- NOTE | 2019-03-09 01:34 | ECWPNPC ---
PATIENT NAME: CANDIS SCHNEIDER : 1955 GENDER: FEMALE VISIT DATE: 02/26/2019 DISCHARGE DATE: 02/26/19 1058 VISIT LOCKED DATE TIME: PHYSICIAN: JADE HOWARD MD RESOURCE: JADE HOWARD MD REASON FOR APPOINTMENT 1. FIBRO / BACK PAIN HISTORY OF PRESENT ILLNESS PAIN SCREENING: PATIENT HAS A COMPLAINT OF ACUTE OR CHRONIC PAIN :YES 63 YEAR OLD FEMALE PATIENT WITH A HISTORY OF CHRONIC ARM, KNEE, AND FOOT PAIN. THE PATIENT DESCRIBES THE PAIN ACHING, SHARP, AND CONTINUOUS WITH A PAIN SCORE OF 6-9/10 DEPENDING ON PHYSICAL ACTIVITY. THE PATIENT SAYS THAT SHE HAS HAD THIS PAIN FOR MANY YEARS DUE TO ARTHRITIS. THE PATIENT SAYS THAT SHE WAS DIAGNOSED WITH FIBROMYALGIA. THE PATIENT SAYS THAT SHE HAS DIFFICULTY SLEEPING DUE TO THIS PAIN. THE PATIENT HAS A HISTORY OF DVT WELL. PATIENT DENIES UNEXPLAINABLE WEIGHT LOSS, FEVER, CHILLS, NEW CHANGES ON HER URINARY OR BOWEL CONTROL. FALL RISK SCREENING: SCREENING :NO FALLS REPORTED IN THE LAST YEAR CURRENT MEDICATIONS TAKING COUMADIN 2.5 MG TABLET ORALLY DIRECTED TAKING SPIRONOLACTONE 25 MG TABLET ORALLY TWICE A DAY TAKING BENAZEPRIL HCL 10 MG TABLET ORALLY DAILY TAKING SERTRALINE HCL 100 MG TABLET ORALLY DAILY TAKING TRILIPIX 135 MG CAPSULE DELAYED RELEASE ORALLY ONCE A DAY TAKING METFORMIN 1000 MG BID TAKING ZETIA 10 MG TABLET ORALLY ONCE A DAY TAKING LEVOTHROYXINE 137 MCG DAILY TAKING BACLOFEN 20 MG TABLET 1 TABLET WITH FOOD OR MILK ORALLY EVERY 8 HRS TAKING VITAMIN D 2000 UNIT TABLET 2 TABLETS ORALLY ONCE A DAY TAKING TOUJEO INSULIN INJECTION 300 ML , NOTES: 80 UNITS DAILY TAKING BYDUREON 2MG/VIAL ONCE WEEKLY TAKING ACTOS 15 MG TABLET 1 TABLET ORALLY ONCE A DAY TAKING JARDIANCE 25 MG TABLET 1 TABLET ORALLY ONCE A DAY TAKING CYMBALTA 30 MG CAPSULE DELAYED RELEASE PARTICLES ORALLY TWICE A DAY TAKING ALLOPURINOL 100 MG TABLET TAKE ONE TABLET BY MOUTH EVERY DAY ORAL TAKING HUMALOG 100 UNIT/ML SOLUTION DIRECTED SUBCUTANEOUS TAKING MIRAPEX 1 MG TABLET ORALLY BID TAKING GABAPENTIN 600 MG TABLET ORALLY BID NOT-TAKING KEVZARA 200 MG/1.14ML SOLUTION AUTO-INJECTOR 1.14 ML SUBCUTANEOUS , NOTES: ON HOLD OF 04/16/2018 MEDICATION LIST REVIEWED AND RECONCILED WITH THE PATIENT PAST MEDICAL HISTORY HYPERTENSION HYPERLIPIDEMIA TYPE 2 DIABETES RHEUMATHOID ARTHRITIS DEPRESSION AND ANXIETY RESTLESS LEG SYNDROME SLEEP APNEA FIBROMYALGIA GOUT HYPOTHYROID ALLERGIES QUININE SULFATE: NAUSEA/VOMITING - ALLERGY STATINS: EXACERBATES RESTLESS LEGS - SIDE EFFECTS SURGICAL HISTORY OPENED REDUCTION OF FRACTURED KNEE CAP 07/1984 ARTHROSCOPY 08/1987 ARTHROSCOPY 08/1994 TOTAL KNEE REPLACEMENT 10/2001 CHOLECYSTECTOMY 08/1979 PARATHYROID 12/2012 APENDECTOMY 04/2017 FAMILY HISTORY FATHER: , DIAGNOSED WITH HYPERTENSION MOTHER: , STROKE, CANCER, HYPERTENSION SIBLINGS: ALIVE, HYPERTENSION MATERNAL GRAND MOTHER: LUPUS- DIAGNOSED IN 70'S 3 BROTHER(S) . PATERNAL GRANDMOTHER DEMENTIA, BROTHERS HAVE HTN, MOTHER HAD MULTIPLE MYLOMA. SOCIAL HISTORY GENERAL: TOBACCO USE ARE YOU A:FORMER SMOKER HOW LONG HAS IT BEEN SINCE YOU LAST SMOKED?> 10 YEARS OTHERS AT HOME: NONE. HOUSING: OWNS HOME. EDUCATION LEVEL OF EDUCATION:COLLEGE DIET: REGULAR, CARBOHYDRATE CONTROLLED. LANGUAGE LANGUAGES SPOKEN:SLOVENIAN RECREATIONAL DRUG USE DRUG USE?NO EXERCISE: WALKS. LEARNING BARRIERS / SPECIAL NEEDS HEARING IMPAIRED?NO VISION IMPAIRED?YES :CORRECTIVE LENSES LEARNING PREFERENCES?YES :DEMONSTRATION/VERBAL INSTRUCTION PAIN CLINIC PFS, CLERGY, PUBLIC HEALTH REFERRALS HAS THE PATIENT BEEN EDUCATED REGARDING HIS/HER PLAN OF CARE?YES HAS THE PATIENT BEEN EDUCATED REGARDING PAIN, THE RISK FOR PAIN, THE IMPORTANCE OF EFFECTIVE PAIN MANAGEMENT, AND THE PAIN ASSESSMENT PROCESS?YES LATEX QUESTIONNAIRE LATEX ALLERGY : HAVE YOU EVER DEVELOPED ANY TYPE OF REACTION AFTER HANDLING LATEX PRODUCTS SUCH RUBBER GLOVES, CONDOMS, DIAPHRAGMS, BALLOONS, SOCKS, OR UNDERWEAR?NO LATEX ALLERGY : HAVE YOU EVER DEVELOPED ANY TYPE OF REACTION DURING OR AFTER DENTAL APPOINTMENT, VAGINAL/RECTAL EXAMINATION, SURGICAL PROCEDURE, OR ANY OTHER EXPOSURE?NO LATEX RISK : HAVE YOU EVER HAD ANY DIFFICULTY BREATHING OR HIVES AFTER EATING OR HANDLING ANY FRUITS, OR VEGETABLES; SUCH KIWI, BANANAS, STONE FRUITS, OR CHESTNUTSNO LATEX RISK : DO YOU HAVE A PREVIOUS PERSONAL HISTORY OF MORE THAN NINE SURGERIES, SPINA BIFIDA, OR REPEATED CATHERIZATIONS? NO LATEX RISK : ARE YOU FREQUENTLY EXPOSED TO LATEX PRODUCTS IN YOUR OCCUPATION?NO DATE ASKED : 02/26/2019 CAFFEINE CAFFEINE USE?YES HOW OFTEN AND HOW MUCH? 2 CUPS IN THE AM ADVANCE DIRECTIVE ADVANCE DIRECTIVE DISCUSSED WITH PATIENT:YES HCP IS [facility]- N[facility] SCHNEIDER [facility] [id number] OTHER NONE MARITAL STATUS: SINGLE. ALCOHOL SCREENING DID YOU HAVE A DRINK CONTAINING ALCOHOL IN THE PAST YEAR?YES HOW OFTEN DID YOU HAVE A DRINK CONTAINING ALCOHOL IN THE PAST YEAR?MONTHLY OR LESS (1 POINT) HOW MANY DRINKS DID YOU HAVE ON A TYPICAL DAY WHEN YOU WERE DRINKING IN THE PAST YEAR?1 OR 2 (0 POINTS) HOW OFTEN DID YOU HAVE SIX OR MORE DRINKS ON ONE OCCASION IN THE PAST YEAR?NEVER (0 POINTS) POINTS1 INTERPRETATIONNEGATIVE REVIEWED WITH PT 02/26/19 1015 BV. HOSPITALIZATION/MAJOR DIAGNOSTIC PROCEDURE PNEUMONIA 01/2015 R/O STROKE 10/2015 DEEP VEIN THROMBOSIS 1988 DVT WITH PULMONARY EMBOLISM 2009 REVIEW OF SYSTEMS REVIEWED BY: PROVIDER: JADE HOWARD MD . CONSTITUTIONAL: ANY CHANGE IN YOUR MEDICAL CONDITION? NO . CHILLS NO . FEVER NO . INFECTION: DO YOU HAVE NEW INFECTIONS? NO . DO YOU HAVE HISTORY OF MRSA? NO . MUSCULOSKELETAL: ANY NEW PATTERNS OF PAIN OR NUMBNESS? NO . SYTEMIC LUPUS NO . GASTROENTEROLOGY: ANY NEW CHANGE IN BOWEL CONTROL? YES, HISTORY OF IBS . BARRETTS ESOPHAGUS NO . CIRRHOSIS NO . HEPATITIS NO . LIVER FAILURE NO . ACID REFLUX YES . UNEXPLAINED WEIGHT LOSS NO . GENITOURINARY: ANY NEW CHANGE IN BLADDER CONTROL? NO . IS THERE A CHANCE YOU COULD BE ? NO . HEMATOLOGY/LYMPH: DO YOU TAKE ANY BLOOD THINNERS? (FOR EXAMPLE- COUMADIN, PLAVIX, AGGRENOX, PLATEL, PRADAXA, OR XARELTO) YES, COUMADIN . WHEN WAS YOUR LAST DOSE? DATE: TIME: . LOW PLATELET COUNT NO . SICKLE CELL DISEASE NO . VON WILLIEBRANDS NO . FACTOR V LEIDEN NO . THALLASEMIA NO . ANEMIA NO . EASY BRUISING NO . NEUROLOGY: HAVE YOU FALLEN IN THE PAST 12 MONTHS? NO . ANY NEW EXTREMITY NUMBNESS OR WEAKNESS? NO . HEAD INJURY NO . DEMENTIA NO . CEREBRAL PALSY NO . MULTIPLE SCLEROSIS NO . DIZZINESS NO . HEADACHE OCCASIONAL TENSION HEADACHES, RELIEVED WITH TYLENOL . STROKES NO . VERTIGO YES, OCCASIONAL, WITH MOVEMENT OF HEAD . CARDIOLOGY: DO YOU HAVE A PACEMAKER OR DEFIBRILLATOR? NO . ANGINA NO . HEART ATTACK NO . HEART SURGERY NO . CONGESTIVE HEART FAILURE/FLUID OVERLOAD NO . CHEST PAIN NO . HIGH BLOOD PRESSURE ON MEDICATION(S) . IRREGULAR HEART BEAT NO . RESPIRATORY: HAVE YOU BEEN SICK IN THE PAST WEEK? NO . FEVER NO . FLU LIKE SYMPTOMS? NO . CPAP NO . BYPAP NO . ASTHMA NO . EMPHYSEMA NO . CHRONIC LUNG DISEASES NO . SHORTNESS OF BREATH ON EXERTION NO . COUGH NO . SNORING NO . INTEGUMENTARY: DO YOU HAVE ANY RASHES OR OPEN SORES? YES, SMALL SORE TO RIGHT BREAST TISSUE . ALLERGIC/IMMUNO: ARE YOU ALLERGIC TO IV DYE? NO . ANY NEW ALLERGIES? NO . PSYCHIATRIC: DO YOU HAVE THOUGHTS OF HURTING YOURSELF OR SOMEONE ELSE? NO . ARE YOU ABUSED, NEGLECTED, OR IN AN UNSAFE ENVIRONMENT? NO . ENDOCRINOLOGY: ARE YOU DIABETIC? YES, ON MEDICATION . THYROID DISORDER YES, HYPOTHYROID . OTHER: DO YOU NEED ANY PRESCRIPTIONS? NO . IF YES, PLEASE LIST: ____ . ANY NEW PROBLEMS WITH YOUR MEDICATIONS? NO . WHEN DID YOU LAST EAT? ____ . WHEN DID YOU LAST DRINK? ____ . WHAT DID YOU LAST DRINK? ____ . NAME OF PERSON DRIVING YOU HOME? ____ . DO YOU HAVE ANY OTHER QUESTIONS OR CONCERNS NO . VITAL SIGNS WT 285 LBS, HT 5'4", BMI 48.91 INDEX, BP 126/63 MM HG, HR 88 /MIN, RR 18 /MIN, TEMP 96.8 F, OXYGEN SAT % 95%, NA INITIALS AW 1003, REVIEWED BY: BV. EXAMINATION GENERAL EXAMINATION: PATIENT IS ALERT O X 3 AND COOPERATIVE. LUNGS CLEAR, TO AUSCULTATION. HEART: NO MURMURS OR GALLOPS; FACIAL CRANIAL NERVES ARE GROSSLY NORMAL. GOOD SYMMETRY OF FACIAL MUSCLE MOVEMENT. NORMAL VISUAL MARIE. PATIENT HAS DIFFICULTY STANDING. ANTALGIC GAIT. SOME SWELLING OVER THE FINGERS IN THE JOINTS. HAND THERAPIST SPEECH IS REDUCED OVER THE RIGHT SIDE. TENDERNESS OVER THE RIGHT KNEE. ASSESSMENTS PAIN IN RIGHT KNEE - M25.561 (PRIMARY) PAIN OF LEFT HAND - M79.642 PAIN IN RIGHT HAND - M79.641 OTHER CHRONIC PAIN - G89.29 LEFT FOOT PAIN - M79.672 TREATMENT PAIN IN RIGHT KNEE CLINICAL NOTES: WE DISCUSSED SEVERAL ISSUES WITH MRS. SCHNEIDER'S PAIN MANAGEMENT CASE. I WILL REFER THE PATIENT TO [facility] FOR EVALUATION OF HER RIGHT KNEE AND DEPENDING ON THEIR OPINION SHE MAY CONSIDER AN INJECTION OVER THE KNEE. I WILL GET A PROVIDER TO PROVIDER AGREEMENT WITH THE PATIENT'S PRIMARY CARE PHYSICIAN TO CONSIDER MEDICATION MANAGEMENT. I DO NOT THINK THE PATIENT'S PAIN IS NECESSARILY FIBROMYALGIA AND THINK IT IS MORE RHEUMATOLOGIC DUE TO THE EVIDENCE OF SWELLING OVER HER HANDS. I WILL REFER THE PATIENT TO A MRI SPECIAL PROCEDURES TECHNOLOGIST IN [place] TO FOLLOW WITH BECAUSE THE PATIENT INFORMED ME THE LOCAL MRI SPECIAL PROCEDURES TECHNOLOGIST DOES NOT BELIEVE SHE CAN HELP HER. I WILL ALSO REFER THE PATIENT TO DR. NORMNA TO CONSIDER MEDICAL MARIJUANA. THE PATIENT WILL FOLLOW UP WITH A NURSE PRACTITIONER IN 3 WEEKS. INSTRUCTIONS WERE GIVEN, QUESTIONS WERE ANSWERED, PATIENT REPORTS UNDERSTANDING AND AGREES WITH THE PLAN. I, FUAD MALDONADO, DOCUMENTED THE ABOVE INFORMATION ACTING A SCRIBE FOR DR. HOWARD. I HAVE REVIEWED THE ABOVE DOCUMENT, WRITTEN BY FUAD VELAZQUEZIBCarol AND I VERIFY THAT IT IS ACCURATE. DEAR YAHIR BARNETT:THANK YOU FOR YOUR KIND REFERRAL OF MRS. SCHNEIDER. IF YOU WANT TO DISCUSS HER CASE WITH ME PLEASE CALL ME AT THE PAIN CENTER AT [phone]. SINCERELY,JADE HOWARD, [facility] . PROCEDURE CODES FA211 ESTABILISHED PATIENT [facility] FACILITY CHARGE G8427 CURRENT MEDS W/DOSAGES DOCUMENTED G8730 PAIN ASSESS POS TOOL F/U PLAN DOC DISPOSITION & COMMUNICATION FOLLOW UP 3 WEEKS WITH JACKIE (REASON: HAND & KNEE PAIN/ ARTHRITIS) ELECTRONICALLY SIGNED BY JADE HOWARD MD, MD ON 03/08/2019 AT 04:13 PM EDT DISCLAIMER : THIS IS A VISIT SUMMARY EXTRACTED FROM THE [employer] CHART. IT IS NOT A COPY OF THE [employer] PROGRESS NOTE. MTDD
== END ==
LOC: M PAIN 10:15
PROVIDERS: ATTEND Anesthesiology
DX: M25.561 Pain in right knee (principal); M79.642 Pain in left hand; M79.641 Pain in right hand; G89.29 Other chronic pain; M79.672 Pain in left foot; I10 Essential (primary) hypertension; E78.5 Hyperlipidemia, unspecified; E11.9 Type 2 diabetes mellitus without complications; M06.9 Rheumatoid arthritis, unspecified; F32.9 Major depressive disorder, single episode, unspecified; F41.9 Anxiety disorder, unspecified; G47.30 Sleep apnea, unspecified; M79.7 Fibromyalgia; M10.9 Gout, unspecified; E03.9 Hypothyroidism, unspecified; Z96.659 Presence of unspecified artificial knee joint; Z90.49 Acquired absence of other specified parts of digestive tract; Z87.891 Personal history of nicotine dependence; Z79.01 Long term (current) use of anticoagulants; Z79.4 Long term (current) use of insulin; Z79.899 Other long term (current) drug therapy; Z88.2 Allergy status to sulfonamides; Z88.8 Allergy status to other drugs, medicaments and biological substances; Z86.718 Personal history of other venous thrombosis and embolism; Z86.711 Personal history of pulmonary embolism

== ENCOUNTER → 2019-03-19 | Outpatient (CLI) | payer MEDICARE, OTHER ==
--- NOTE | 2019-03-23 00:09 | ECWPNPC ---
PATIENT NAME: CANDIS SCHNEIDER : 1955 GENDER: FEMALE VISIT DATE: 03/19/2019 DISCHARGE DATE: 03/19/19 1110 VISIT LOCKED DATE TIME: PHYSICIAN: JACKIE FOSTER RESOURCE: JACKIE FOSTER REASON FOR APPOINTMENT 1. HAND & KNEE PAIN/ ARTHRITIS HISTORY OF PRESENT ILLNESS HISTORY OF PRESENT ILLNESS: PAIN THE PATIENT DESCRIBES THE PAIN... 63 YEAR OLD FEMALE IN FOR CHRONIC PAIN FOLLOW UP. SHE RATES HER PAIN AT A 4/10 CURRENTLY AND DESCRIBES IT ACHING, AND SHARP. SHE HAD THOUGHT ABOUT MEDICAL MARIJUANA BUT STATES SHE DID RESEARCH AND CANNOT USE IT BECAUSE OF HER COUMADIN. SHE WOULD LIKE TO DISCUSS OTHER ALTERNATIVES TO MANAGE HER PAIN. SHE DENIES MED SIDE EFFECTS AND DOES NOT FEEL THE MEDICATIONS ARE WORKING WELL. FALL RISK SCREENING: SCREENING :NO FALLS REPORTED IN THE LAST YEAR CURRENT MEDICATIONS TAKING COUMADIN 2.5 MG TABLET ORALLY DIRECTED TAKING SPIRONOLACTONE 25 MG TABLET ORALLY TWICE A DAY TAKING BENAZEPRIL HCL 10 MG TABLET ORALLY DAILY TAKING SERTRALINE HCL 100 MG TABLET ORALLY DAILY TAKING TRILIPIX 135 MG CAPSULE DELAYED RELEASE ORALLY ONCE A DAY TAKING METFORMIN 1000 MG BID TAKING ZETIA 10 MG TABLET ORALLY ONCE A DAY TAKING LEVOTHROYXINE 137 MCG DAILY TAKING BACLOFEN 20 MG TABLET 1 TABLET WITH FOOD OR MILK ORALLY DAILY TAKING VITAMIN D 2000 UNIT TABLET 2 TABLETS ORALLY ONCE A DAY TAKING TOUJEO INSULIN INJECTION 300 ML , NOTES: 80 UNITS DAILY TAKING BYDUREON 2MG/VIAL ONCE WEEKLY TAKING ACTOS 15 MG TABLET 1 TABLET ORALLY ONCE A DAY TAKING JARDIANCE 25 MG TABLET 1 TABLET ORALLY ONCE A DAY TAKING CYMBALTA 30 MG CAPSULE DELAYED RELEASE PARTICLES ORALLY TWICE A DAY TAKING ALLOPURINOL 100 MG TABLET 1 CAP ORAL DAILY TAKING HUMALOG 100 UNIT/ML SOLUTION DIRECTED SUBCUTANEOUS TAKING MIRAPEX 1 MG TABLET ORALLY BID TAKING GABAPENTIN 600 MG TABLET ORALLY BID TAKING RESTORIL 30 MG CAPSULE 1 CAPSULE AT BEDTIME NEEDED ORALLY ONCE A DAY, NOTES: FOR RESTLESS LEG SYNDROME NOT-TAKING KEVZARA 200 MG/1.14ML SOLUTION AUTO-INJECTOR 1.14 ML SUBCUTANEOUS , NOTES: ON HOLD OF 04/16/2018 MEDICATION LIST REVIEWED AND RECONCILED WITH THE PATIENT PAST MEDICAL HISTORY HYPERTENSION HYPERLIPIDEMIA TYPE 2 DIABETES RHEUMATHOID ARTHRITIS DEPRESSION AND ANXIETY RESTLESS LEG SYNDROME SLEEP APNEA FIBROMYALGIA GOUT HYPOTHYROID ALLERGIES QUININE SULFATE: NAUSEA/VOMITING - ALLERGY STATINS: EXACERBATES RESTLESS LEGS - SIDE EFFECTS SURGICAL HISTORY OPENED REDUCTION OF FRACTURED KNEE CAP 07/1984 ARTHROSCOPY 08/1987 ARTHROSCOPY 08/1994 TOTAL KNEE REPLACEMENT 10/2001 CHOLECYSTECTOMY 08/1979 PARATHYROID 12/2012 APENDECTOMY 04/2017 FAMILY HISTORY FATHER: , DIAGNOSED WITH HYPERTENSION MOTHER: , CANCER, HYPERTENSION, STROKE SIBLINGS: ALIVE, HYPERTENSION MATERNAL GRAND MOTHER: LUPUS- DIAGNOSED IN 70'S 3 BROTHER(S) . PATERNAL GRANDMOTHER DEMENTIA, BROTHERS HAVE HTN, MOTHER HAD MULTIPLE MYLOMA. SOCIAL HISTORY GENERAL: TOBACCO USE ARE YOU A:FORMER SMOKER HOW LONG HAS IT BEEN SINCE YOU LAST SMOKED?> 10 YEARS OTHERS AT HOME: NONE. HOUSING: OWNS HOME. EDUCATION LEVEL OF EDUCATION:COLLEGE DIET: REGULAR, CARBOHYDRATE CONTROLLED. LANGUAGE LANGUAGES SPOKEN:AZERI RECREATIONAL DRUG USE DRUG USE?NO EXERCISE: WALKS. LEARNING BARRIERS / SPECIAL NEEDS HEARING IMPAIRED?NO VISION IMPAIRED?YES :CORRECTIVE LENSES LEARNING PREFERENCES?YES :DEMONSTRATION/VERBAL INSTRUCTION PAIN CLINIC PFS, CLERGY, PUBLIC HEALTH REFERRALS HAS THE PATIENT BEEN EDUCATED REGARDING HIS/HER PLAN OF CARE?YES HAS THE PATIENT BEEN EDUCATED REGARDING PAIN, THE RISK FOR PAIN, THE IMPORTANCE OF EFFECTIVE PAIN MANAGEMENT, AND THE PAIN ASSESSMENT PROCESS?YES LATEX QUESTIONNAIRE LATEX ALLERGY : HAVE YOU EVER DEVELOPED ANY TYPE OF REACTION AFTER HANDLING LATEX PRODUCTS SUCH RUBBER GLOVES, CONDOMS, DIAPHRAGMS, BALLOONS, SOCKS, OR UNDERWEAR?NO LATEX ALLERGY : HAVE YOU EVER DEVELOPED ANY TYPE OF REACTION DURING OR AFTER DENTAL APPOINTMENT, VAGINAL/RECTAL EXAMINATION, SURGICAL PROCEDURE, OR ANY OTHER EXPOSURE?NO LATEX RISK : HAVE YOU EVER HAD ANY DIFFICULTY BREATHING OR HIVES AFTER EATING OR HANDLING ANY FRUITS, OR VEGETABLES; SUCH KIWI, BANANAS, STONE FRUITS, OR CHESTNUTSNO LATEX RISK : DO YOU HAVE A PREVIOUS PERSONAL HISTORY OF MORE THAN NINE SURGERIES, SPINA BIFIDA, OR REPEATED CATHERIZATIONS? NO LATEX RISK : ARE YOU FREQUENTLY EXPOSED TO LATEX PRODUCTS IN YOUR OCCUPATION?NO DATE ASKED : 02/26/2019 CAFFEINE CAFFEINE USE?YES HOW OFTEN AND HOW MUCH? 2 CUPS IN THE AM ADVANCE DIRECTIVE ADVANCE DIRECTIVE DISCUSSED WITH PATIENT:YES HCP IS IVAN SCHNEIDER SCIENT[facility] [id number] OTHER NONE MARITAL STATUS: SINGLE. ALCOHOL SCREENING DID YOU HAVE A DRINK CONTAINING ALCOHOL IN THE PAST YEAR?YES HOW OFTEN DID YOU HAVE A DRINK CONTAINING ALCOHOL IN THE PAST YEAR?MONTHLY OR LESS (1 POINT) HOW MANY DRINKS DID YOU HAVE ON A TYPICAL DAY WHEN YOU WERE DRINKING IN THE PAST YEAR?1 OR 2 (0 POINTS) HOW OFTEN DID YOU HAVE SIX OR MORE DRINKS ON ONE OCCASION IN THE PAST YEAR?NEVER (0 POINTS) POINTS1 INTERPRETATIONNEGATIVE REVIEWED WITH PT 02/26/19 1015 BVREVIEWED WITH PATIENT 03/19/19 1033 NLJ. HOSPITALIZATION/MAJOR DIAGNOSTIC PROCEDURE PNEUMONIA 01/2015 R/O STROKE 10/2015 DEEP VEIN THROMBOSIS 1988 DVT WITH PULMONARY EMBOLISM 2009 REVIEW OF SYSTEMS REVIEWED BY: PROVIDER: ALDAIR FOSTER CREDIT UNION TELLER-C . CONSTITUTIONAL: ANY CHANGE IN YOUR MEDICAL CONDITION? NO . CHILLS NO . FEVER NO . INFECTION: DO YOU HAVE NEW INFECTIONS? NO . DO YOU HAVE HISTORY OF MRSA? NO . MUSCULOSKELETAL: ANY NEW PATTERNS OF PAIN OR NUMBNESS? YES- STATES GOUT IS ACTING UP AND SHE HAS INCREASED PAIN IN LEFT GREAT TOE . GASTROENTEROLOGY: ANY NEW CHANGE IN BOWEL CONTROL? NO . GENITOURINARY: ANY NEW CHANGE IN BLADDER CONTROL? NO . IS THERE A CHANCE YOU COULD BE ? NO . HEMATOLOGY/LYMPH: DO YOU TAKE ANY BLOOD THINNERS? (FOR EXAMPLE- COUMADIN, PLAVIX, AGGRENOX, PLATEL, PRADAXA, OR XARELTO) YES- COUMADIN . WHEN WAS YOUR LAST DOSE? DATE: TIME:03/18/19 1800 . NEUROLOGY: HAVE YOU FALLEN IN THE PAST 12 MONTHS? NO . ANY NEW EXTREMITY NUMBNESS OR WEAKNESS? NO . CARDIOLOGY: DO YOU HAVE A PACEMAKER OR DEFIBRILLATOR? NO . RESPIRATORY: HAVE YOU BEEN SICK IN THE PAST WEEK? NO . FEVER NO . FLU LIKE SYMPTOMS? NO . COUGH NO . INTEGUMENTARY: DO YOU HAVE ANY RASHES OR OPEN SORES? NO . ALLERGIC/IMMUNO: ARE YOU ALLERGIC TO IV DYE? NO . ANY NEW ALLERGIES? NO . PSYCHIATRIC: DO YOU HAVE THOUGHTS OF HURTING YOURSELF OR SOMEONE ELSE? NO . ARE YOU ABUSED, NEGLECTED, OR IN AN UNSAFE ENVIRONMENT? NO . ENDOCRINOLOGY: ARE YOU DIABETIC? YES . OTHER: DO YOU NEED ANY PRESCRIPTIONS? YES- AT THIS TIME SHE GETS N MEDS FROM [facility] BUT WOULD LIKE TO DISCUSS OPTIONS . IF YES, PLEASE LIST: ____ . ANY NEW PROBLEMS WITH YOUR MEDICATIONS? NO . WHEN DID YOU LAST EAT? ____ . WHEN DID YOU LAST DRINK? ____ . WHAT DID YOU LAST DRINK? ____ . NAME OF PERSON DRIVING YOU HOME? ____ . DO YOU HAVE ANY OTHER QUESTIONS OR CONCERNS NO- JUST WOULD LIKE TO DISCUSS MED OPTIONS BECAUSE SHE CAN NOT USE MEDICAL MARIJUANA . VITAL SIGNS WT 281.8 LBS, HT 5'4", BMI 48.37 INDEX, BP 120/68 MM HG, HR 100 /MIN, RR 18 /MIN, TEMP 96.8 F, OXYGEN SAT % 94%, SAFE IN ENV? (Y/N) YES, NA INITIALS AW 1031, REVIEWED BY: SABRINA. EXAMINATION GENERAL EXAMINATION: GENERALNO ACUTE DISTRESS, WELL NOURISHED AND HYDRATED. PSYCHAPPROPRIATE MOOD AND AFFECT . LUNGS:CLEAR TO AUSCULTATION BILATERALLY, NO WHEEZES, RHONCHI, RALES. HEART:NO MURMURS, REGULAR RATE AND RHYTHM. ASSESSMENTS PRIMARY OSTEOARTHRITIS INVOLVING MULTIPLE JOINTS - M15.0 (PRIMARY) TREATMENT PRIMARY OSTEOARTHRITIS INVOLVING MULTIPLE JOINTS START LYRICA CAPSULE, 75 MG, 1 CAPSULE, ORALLY, TWICE DAILY, 30 DAYS, 60 CLINICAL NOTES: 63 YEAR OLD FEMALE IN FOR CHRONIC PAIN FOLLOW UP. GIVEN PRESENTING SYMPTOMS AND RESULTS OF PHYSICAL EXAMINATION RECOMMENDED TITRATING OFF GABAPENTIN AND STARTING LYRICA WITH FOLLOW UP IN 1 MONTH TO DETERMINE EFFICACY OF TREATMENT. PATIENT HAS EXPRESSED UNDERSTANDING OF AND WAS IN AGREEMENT WITH TREATMENT PLAN. GIVEN TIME TO ASK QUESTIONS AND EXPRESS CONCERNS. . PREVENTIVE MEDICINE PAIN CLINIC TEACHING: MEDICATIONS LYRICA DRUG INFORMATION PRINTED AND REVIEWED WITH PATIENT . PROCEDURE CODES FA211 ESTABILISHED PATIENT [facility] CHARGE DISPOSITION & COMMUNICATION FOLLOW UP 4 WEEKS (REASON: MEDICATION ADDITION ) ELECTRONICALLY SIGNED BY HARI NERI ON 03/22/2019 AT 02:08 PM EDT DISCLAIMER : THIS IS A VISIT SUMMARY EXTRACTED FROM THE [employer] CHART. IT IS NOT A COPY OF THE [employer] PROGRESS NOTE. CURTIS
== END ==
LOC: M PAIN 10:30
PROVIDERS: ATTEND Family Medicine
DX: M15.0 Primary generalized (osteo)arthritis (principal); G89.29 Other chronic pain; I10 Essential (primary) hypertension; E78.5 Hyperlipidemia, unspecified; E11.9 Type 2 diabetes mellitus without complications; M06.9 Rheumatoid arthritis, unspecified; Z86.59 Personal history of other mental and behavioral disorders; G25.81 Restless legs syndrome; G47.30 Sleep apnea, unspecified; M79.7 Fibromyalgia; E03.9 Hypothyroidism, unspecified; Z96.659 Presence of unspecified artificial knee joint; Z87.891 Personal history of nicotine dependence; Z88.8 Allergy status to other drugs, medicaments and biological substances; Z86.718 Personal history of other venous thrombosis and embolism; Z79.01 Long term (current) use of anticoagulants; E66.01 Morbid (severe) obesity due to excess calories; Z68.42 Body mass index [BMI] 45.0-49.9, adult; Z79.4 Long term (current) use of insulin; Z79.899 Other long term (current) drug therapy

== ENCOUNTER → 2019-04-16 | Outpatient (CLI) | payer MEDICARE, OTHER ==
[~2019-04-16] MED LIST changes: -ARTI99.0 OU; +ARTIDRO2 OU; -ASPI-222 PO; +ASPI-527 PO; -BENA10TA9 PO; +BENA1TAB24 PO; -GLIM4TAB PO; +GLIM4TAB5 PO; +OMEP1CAP73 PO; -OMEP20CA4 PO; +SENN-53 PO; -SENN1TAB40 PO; +ZETI10TA16 PO; -ZETI10TA30 PO
--- NOTE | 2019-04-20 02:39 | ECWPNPC ---
PATIENT NAME: CANDIS SCHNEIDER : 1955 GENDER: FEMALE VISIT DATE: 04/16/2019 DISCHARGE DATE: 04/16/19 1118 VISIT LOCKED DATE TIME: PHYSICIAN: JACKIE FOSTER RESOURCE: JACKIE FOSTER REASON FOR APPOINTMENT 1. HAND & KNEE PAIN/ ARTHRITIS HISTORY OF PRESENT ILLNESS HISTORY OF PRESENT ILLNESS: PAIN THE PATIENT DESCRIBES THE PAIN... 63-YEAR-OLD FEMALE IN FOR CHRONIC PAIN FOLLOW-UP. SHE WAS STARTED ON LYRICA AT LAST VISIT AND ADMITS TODAY THAT IT IS WORKING WELL TO HELP WITH HER PAIN. SHE DENIES MED SIDE EFFECTS. SHE RATES HER PAIN OF A 7/10 CURRENTLY AND DESCRIBES IT ACHING. FALL RISK SCREENING: SCREENING :NO FALLS REPORTED IN THE LAST YEAR CURRENT MEDICATIONS TAKING COUMADIN 2.5 MG TABLET ORALLY DIRECTED TAKING SPIRONOLACTONE 25 MG TABLET ORALLY TWICE A DAY TAKING BENAZEPRIL HCL 10 MG TABLET ORALLY DAILY TAKING SERTRALINE HCL 100 MG TABLET ORALLY DAILY TAKING TRILIPIX 135 MG CAPSULE DELAYED RELEASE ORALLY ONCE A DAY TAKING METFORMIN 1000 MG BID TAKING ZETIA 10 MG TABLET ORALLY ONCE A DAY TAKING LEVOTHROYXINE 137 MCG DAILY TAKING BACLOFEN 20 MG TABLET 1 TABLET WITH FOOD OR MILK ORALLY DAILY TAKING VITAMIN D 2000 UNIT TABLET 2 TABLETS ORALLY ONCE A DAY TAKING TOUJEO INSULIN INJECTION 300 ML , NOTES: 80 UNITS DAILY TAKING BYDUREON 2MG/VIAL ONCE WEEKLY TAKING ACTOS 15 MG TABLET 1 TABLET ORALLY ONCE A DAY TAKING JARDIANCE 25 MG TABLET 1 TABLET ORALLY ONCE A DAY TAKING CYMBALTA 30 MG CAPSULE DELAYED RELEASE PARTICLES ORALLY TWICE A DAY TAKING ALLOPURINOL 100 MG TABLET 1 CAP ORAL DAILY TAKING HUMALOG 100 UNIT/ML SOLUTION DIRECTED SUBCUTANEOUS TAKING MIRAPEX 1 MG TABLET ORALLY BID TAKING RESTORIL 30 MG CAPSULE 1 CAPSULE AT BEDTIME NEEDED ORALLY ONCE A DAY, NOTES: FOR RESTLESS LEG SYNDROME TAKING LYRICA 75 MG CAPSULE 1 CAPSULE ORALLY TWICE DAILY TAKING MAY HAVE - - MEDICAL MARIJUANA DAILY NEEDED NOT-TAKING GABAPENTIN 600 MG TABLET ORALLY BID NOT-TAKING KEVZARA 200 MG/1.14ML SOLUTION AUTO-INJECTOR 1.14 ML SUBCUTANEOUS , NOTES: ON HOLD OF 04/16/2018 MEDICATION LIST REVIEWED AND RECONCILED WITH THE PATIENT PAST MEDICAL HISTORY HYPERTENSION HYPERLIPIDEMIA TYPE 2 DIABETES RHEUMATHOID ARTHRITIS DEPRESSION AND ANXIETY RESTLESS LEG SYNDROME SLEEP APNEA FIBROMYALGIA GOUT HYPOTHYROID ALLERGIES QUININE SULFATE: NAUSEA/VOMITING - ALLERGY STATINS: EXACERBATES RESTLESS LEGS - SIDE EFFECTS SURGICAL HISTORY OPENED REDUCTION OF FRACTURED KNEE CAP 07/1984 ARTHROSCOPY 08/1987 ARTHROSCOPY 08/1994 TOTAL KNEE REPLACEMENT 10/2001 CHOLECYSTECTOMY 08/1979 PARATHYROID 12/2012 APENDECTOMY 04/2017 FAMILY HISTORY FATHER: , DIAGNOSED WITH HYPERTENSION MOTHER: , HYPERTENSION, UNSPECIFIED CEREBRAL ARTERY OCCLUSION WITH CEREBRAL INFARCTION, OTHER MALIGNANT NEOPLASM OF UNSPECIFIED SITE SIBLINGS: ALIVE, HYPERTENSION MATERNAL GRAND MOTHER: LUPUS- DIAGNOSED IN 70'S 3 BROTHER(S) . PATERNAL GRANDMOTHER DEMENTIA, BROTHERS HAVE HTN, MOTHER HAD MULTIPLE MYLOMA. SOCIAL HISTORY GENERAL: TOBACCO USE ARE YOU A:FORMER SMOKER HOW LONG HAS IT BEEN SINCE YOU LAST SMOKED?> 10 YEARS OTHERS AT HOME: NONE. HOUSING: OWNS HOME. EDUCATION LEVEL OF EDUCATION:COLLEGE DIET: REGULAR, CARBOHYDRATE CONTROLLED. LANGUAGE LANGUAGES SPOKEN:ESTONIAN RECREATIONAL DRUG USE DRUG USE?NO EXERCISE: WALKS. LEARNING BARRIERS / SPECIAL NEEDS HEARING IMPAIRED?NO VISION IMPAIRED?YES :CORRECTIVE LENSES LEARNING PREFERENCES?YES :DEMONSTRATION/VERBAL INSTRUCTION PAIN CLINIC PFS, CLERGY, PUBLIC HEALTH REFERRALS HAS THE PATIENT BEEN EDUCATED REGARDING HIS/HER PLAN OF CARE?YES HAS THE PATIENT BEEN EDUCATED REGARDING PAIN, THE RISK FOR PAIN, THE IMPORTANCE OF EFFECTIVE PAIN MANAGEMENT, AND THE PAIN ASSESSMENT PROCESS?YES LATEX QUESTIONNAIRE LATEX ALLERGY : HAVE YOU EVER DEVELOPED ANY TYPE OF REACTION AFTER HANDLING LATEX PRODUCTS SUCH RUBBER GLOVES, CONDOMS, DIAPHRAGMS, BALLOONS, SOCKS, OR UNDERWEAR?NO LATEX ALLERGY : HAVE YOU EVER DEVELOPED ANY TYPE OF REACTION DURING OR AFTER DENTAL APPOINTMENT, VAGINAL/RECTAL EXAMINATION, SURGICAL PROCEDURE, OR ANY OTHER EXPOSURE?NO DATE ASKED : 02/26/2019 LATEX RISK : HAVE YOU EVER HAD ANY DIFFICULTY BREATHING OR HIVES AFTER EATING OR HANDLING ANY FRUITS, OR VEGETABLES; SUCH KIWI, BANANAS, STONE FRUITS, OR CHESTNUTSNO LATEX RISK : DO YOU HAVE A PREVIOUS PERSONAL HISTORY OF MORE THAN NINE SURGERIES, SPINA BIFIDA, OR REPEATED CATHERIZATIONS? NO LATEX RISK : ARE YOU FREQUENTLY EXPOSED TO LATEX PRODUCTS IN YOUR OCCUPATION?NO CAFFEINE CAFFEINE USE?YES HOW OFTEN AND HOW MUCH? 2 CUPS IN THE AM ADVANCE DIRECTIVE ADVANCE DIRECTIVE DISCUSSED WITH PATIENT:YES HCP IS LAURENERFernando SCHNEIDER CHURCH [id number] OTHER NONE MARITAL STATUS: SINGLE. ALCOHOL SCREENING DID YOU HAVE A DRINK CONTAINING ALCOHOL IN THE PAST YEAR?YES HOW OFTEN DID YOU HAVE SIX OR MORE DRINKS ON ONE OCCASION IN THE PAST YEAR?NEVER (0 POINTS) HOW MANY DRINKS DID YOU HAVE ON A TYPICAL DAY WHEN YOU WERE DRINKING IN THE PAST YEAR?1 OR 2 (0 POINTS) HOW OFTEN DID YOU HAVE A DRINK CONTAINING ALCOHOL IN THE PAST YEAR?MONTHLY OR LESS (1 POINT) POINTS1 INTERPRETATIONNEGATIVE REVIEWED WITH PT 02/26/19 1015 BVREVIEWED WITH PATIENT 03/19/19 1033 NLJREVIEWED WITH PATIENT 04/16/19 1037 BV. HOSPITALIZATION/MAJOR DIAGNOSTIC PROCEDURE PNEUMONIA 01/2015 R/O STROKE 10/2015 DEEP VEIN THROMBOSIS 1988 DVT WITH PULMONARY EMBOLISM 2009 REVIEW OF SYSTEMS REVIEWED BY: PROVIDER: ALDAIR BASSETT . CONSTITUTIONAL: ANY CHANGE IN YOUR MEDICAL CONDITION? NO . CHILLS NO . FEVER NO . INFECTION: DO YOU HAVE NEW INFECTIONS? NO . DO YOU HAVE HISTORY OF MRSA? NO . MUSCULOSKELETAL: ANY NEW PATTERNS OF PAIN OR NUMBNESS? NO . GASTROENTEROLOGY: ANY NEW CHANGE IN BOWEL CONTROL? NO . GENITOURINARY: ANY NEW CHANGE IN BLADDER CONTROL? NO . IS THERE A CHANCE YOU COULD BE ? NO . HEMATOLOGY/LYMPH: DO YOU TAKE ANY BLOOD THINNERS? (FOR EXAMPLE- COUMADIN, PLAVIX, AGGRENOX, PLATEL, PRADAXA, OR XARELTO) YES, COUMADIN . WHEN WAS YOUR LAST DOSE? 04/15/19 1900 . NEUROLOGY: HAVE YOU FALLEN IN THE PAST 12 MONTHS? NO . ANY NEW EXTREMITY NUMBNESS OR WEAKNESS? NO . CARDIOLOGY: DO YOU HAVE A PACEMAKER OR DEFIBRILLATOR? NO . RESPIRATORY: HAVE YOU BEEN SICK IN THE PAST WEEK? NO . FEVER NO . FLU LIKE SYMPTOMS? NO . COUGH NO . INTEGUMENTARY: DO YOU HAVE ANY RASHES OR OPEN SORES? NO . ALLERGIC/IMMUNO: ARE YOU ALLERGIC TO IV DYE? NO . ANY NEW ALLERGIES? NO . PSYCHIATRIC: DO YOU HAVE THOUGHTS OF HURTING YOURSELF OR SOMEONE ELSE? NO . ARE YOU ABUSED, NEGLECTED, OR IN AN UNSAFE ENVIRONMENT? NO . ENDOCRINOLOGY: ARE YOU DIABETIC? YES, ON MEDICATION . OTHER: DO YOU NEED ANY PRESCRIPTIONS? YES, LYRICA . IF YES, PLEASE LIST: ____ . ANY NEW PROBLEMS WITH YOUR MEDICATIONS? NO . WHEN DID YOU LAST EAT? ____ . WHEN DID YOU LAST DRINK? ____ . WHAT DID YOU LAST DRINK? ____ . NAME OF PERSON DRIVING YOU HOME? ____ . DO YOU HAVE ANY OTHER QUESTIONS OR CONCERNS NO . VITAL SIGNS WT 283.8 LBS, HT 5'4", BMI 48.71 INDEX, BP 124/61 MM HG, HR 79 /MIN, RR 18 /MIN, TEMP 96.7 F, OXYGEN SAT % 97%, NA INITIALS SC 10:25, REVIEWED BY: BV. EXAMINATION GENERAL EXAMINATION: GENERALNO ACUTE DISTRESS, WELL NOURISHED AND HYDRATED. PSYCHAPPROPRIATE MOOD AND AFFECT . LUNGS:CLEAR TO AUSCULTATION BILATERALLY, NO WHEEZES, RHONCHI, RALES. HEART:NO MURMURS, REGULAR RATE AND RHYTHM. ASSESSMENTS PRIMARY OSTEOARTHRITIS INVOLVING MULTIPLE JOINTS - M15.0 (PRIMARY) TREATMENT PRIMARY OSTEOARTHRITIS INVOLVING MULTIPLE JOINTS REFILL LYRICA CAPSULE, 75 MG, 1 CAPSULE, ORALLY, TWICE DAILY, 30 DAYS, 60 CLINICAL NOTES: 63-YEAR-OLD FEMALE IN FOR CHRONIC PAIN FOLLOW. GIVEN PRESENTING SYMPTOMS AND RESULTS OF PHYSICAL EXAMINATION RECOMMENDED CONTINUATION OF LYRICA WITH FOLLOW-UP IN 2 MONTHS. PATIENT HAS EXPRESSED UNDERSTANDING OF AND WAS IN AGREEMENT WITH TREATMENT PLAN. GIVEN TIME TO ASK QUESTIONS AND EXPRESSCONCERNS., ISTOP REGISTRY REVIEWED AND DEMONSTRATES COMPLLIANCE. (REF # [id number] ) BRINGS IN MEDICATIONS WHICH IS APPROPRIATE FOR WHAT WAS DISPENSED. RECENT URINE TOXICOLOGY REVIEWED. NO UNAUTHORIZED MEDICATIONS. NO ILLICIT SUBSTANCES AND PRESCRIBED MEDICATIONS WERE PRESENT. PROCEDURE CODES FA211 ESTABILISHED PATIENT [facility] CHARGE DISPOSITION & COMMUNICATION FOLLOW UP 2 MONTHS (REASON: CHRONIC PAIN) ELECTRONICALLY SIGNED BY HARI NERI ON 04/19/2019 AT 01:01 PM EDT DISCLAIMER : THIS IS A VISIT SUMMARY EXTRACTED FROM THE [employer] CHART. IT IS NOT A COPY OF THE [employer] PROGRESS NOTE. CURTIS
== END ==
LOC: M PAIN 09:45
PROVIDERS: ATTEND Family Medicine
DX: M15.0 Primary generalized (osteo)arthritis (principal); G89.29 Other chronic pain; I10 Essential (primary) hypertension; E78.5 Hyperlipidemia, unspecified; E11.9 Type 2 diabetes mellitus without complications; M06.9 Rheumatoid arthritis, unspecified; Z86.59 Personal history of other mental and behavioral disorders; G25.81 Restless legs syndrome; G47.33 Obstructive sleep apnea (adult) (pediatric); M79.7 Fibromyalgia; E03.9 Hypothyroidism, unspecified; Z96.659 Presence of unspecified artificial knee joint; Z87.891 Personal history of nicotine dependence; Z88.8 Allergy status to other drugs, medicaments and biological substances; Z86.718 Personal history of other venous thrombosis and embolism; Z86.711 Personal history of pulmonary embolism; Z79.01 Long term (current) use of anticoagulants; E66.01 Morbid (severe) obesity due to excess calories; Z68.42 Body mass index [BMI] 45.0-49.9, adult; Z79.4 Long term (current) use of insulin; Z79.899 Other long term (current) drug therapy

== ENCOUNTER → 2019-06-23 | Outpatient (CLI) | payer MEDICARE, OTHER ==
[~2019-06-23] MED LIST changes: +BENA10TA9 PO; -BENA1TAB24 PO; +GLIM4TAB3 PO; -GLIM4TAB5 PO; -OMEP1CAP73 PO; +OMEP20CA4 PO
--- NOTE | 2019-06-25 03:41 | ECWPNPC ---
PATIENT NAME: CANDIS SCHNEIDER : 1955 GENDER: FEMALE VISIT DATE: 06/23/2019 DISCHARGE DATE: 06/23/19 1139 VISIT LOCKED DATE TIME: PHYSICIAN: JACKIE FOSTER RESOURCE: JACKIE FOSTER REASON FOR APPOINTMENT 1. CHRONIC PAIN HISTORY OF PRESENT ILLNESS HISTORY OF PRESENT ILLNESS: PAIN THE PATIENT DESCRIBES THE PAIN... 63-YEAR-OLD FEMALE IN FOR CHRONIC PAIN FOLLOW-UP. SHE FEELS THE LYRICA IS MAKING HER FOGGY AND WOULD LIKE TO DISCONTINUE USE OF THAT. SHE RATES HER PAIN CURRENTLY AT AN 8 OUT OF 10 AND DESCRIBES IT ACHING. FALL RISK SCREENING: SCREENING :NO FALLS REPORTED IN THE LAST YEAR CURRENT MEDICATIONS TAKING COUMADIN 2.5 MG TABLET ORALLY DIRECTED TAKING SPIRONOLACTONE 25 MG TABLET ORALLY TWICE A DAY TAKING BENAZEPRIL HCL 10 MG TABLET ORALLY DAILY TAKING SERTRALINE HCL 100 MG TABLET ORALLY DAILY TAKING TRILIPIX 135 MG CAPSULE DELAYED RELEASE ORALLY ONCE A DAY TAKING METFORMIN 1000 MG BID TAKING ZETIA 10 MG TABLET ORALLY ONCE A DAY TAKING LEVOTHROYXINE 137 MCG DAILY TAKING BACLOFEN 20 MG TABLET 1 TABLET WITH FOOD OR MILK ORALLY DAILY TAKING VITAMIN D 2000 UNIT TABLET 2 TABLETS ORALLY ONCE A DAY TAKING TOUJEO INSULIN INJECTION 300 ML , NOTES: 80 UNITS DAILY TAKING BYDUREON 2MG/VIAL ONCE WEEKLY TAKING ACTOS 15 MG TABLET 1 TABLET ORALLY ONCE A DAY TAKING JARDIANCE 25 MG TABLET 1 TABLET ORALLY ONCE A DAY TAKING CYMBALTA 30 MG CAPSULE DELAYED RELEASE PARTICLES ORALLY TWICE A DAY TAKING ALLOPURINOL 100 MG TABLET 1 CAP ORAL DAILY TAKING HUMALOG 100 UNIT/ML SOLUTION DIRECTED SUBCUTANEOUS TAKING MIRAPEX 1 MG TABLET ORALLY BID TAKING RESTORIL 30 MG CAPSULE 1 CAPSULE AT BEDTIME NEEDED ORALLY ONCE A DAY, NOTES: FOR RESTLESS LEG SYNDROME TAKING MAY HAVE - - MEDICAL MARIJUANA DAILY NEEDED TAKING LYRICA 75 MG CAPSULE 1 CAPSULE ORALLY TWICE DAILY NOT-TAKING GABAPENTIN 600 MG TABLET ORALLY BID NOT-TAKING KEVZARA 200 MG/1.14ML SOLUTION AUTO-INJECTOR 1.14 ML SUBCUTANEOUS , NOTES: ON HOLD OF 04/16/2018 MEDICATION LIST REVIEWED AND RECONCILED WITH THE PATIENT PAST MEDICAL HISTORY HYPERTENSION HYPERLIPIDEMIA TYPE 2 DIABETES RHEUMATHOID ARTHRITIS DEPRESSION AND ANXIETY RESTLESS LEG SYNDROME SLEEP APNEA FIBROMYALGIA GOUT HYPOTHYROID ALLERGIES QUININE SULFATE: NAUSEA/VOMITING - ALLERGY STATINS: EXACERBATES RESTLESS LEGS - SIDE EFFECTS SURGICAL HISTORY OPENED REDUCTION OF FRACTURED KNEE CAP 07/1984 ARTHROSCOPY 08/1987 ARTHROSCOPY 08/1994 TOTAL KNEE REPLACEMENT 10/2001 CHOLECYSTECTOMY 08/1979 PARATHYROID 12/2012 APENDECTOMY 04/2017 FAMILY HISTORY FATHER: , DIAGNOSED WITH HYPERTENSION MOTHER: , HYPERTENSION, UNSPECIFIED CEREBRAL ARTERY OCCLUSION WITH CEREBRAL INFARCTION, OTHER MALIGNANT NEOPLASM OF UNSPECIFIED SITE SIBLINGS: ALIVE, HYPERTENSION MATERNAL GRAND MOTHER: LUPUS- DIAGNOSED IN 70'S 3 BROTHER(S) . PATERNAL GRANDMOTHER DEMENTIA, BROTHERS HAVE HTN, MOTHER HAD MULTIPLE MYLOMA. SOCIAL HISTORY GENERAL: TOBACCO USE ARE YOU A:FORMER SMOKER HOW LONG HAS IT BEEN SINCE YOU LAST SMOKED?> 10 YEARS OTHERS AT HOME: NONE. HOUSING: OWNS HOME. EDUCATION LEVEL OF EDUCATION:COLLEGE DIET: REGULAR, CARBOHYDRATE CONTROLLED. LANGUAGE LANGUAGES SPOKEN:ZIMBABWEAN RECREATIONAL DRUG USE DRUG USE?NO EXERCISE: WALKS. LEARNING BARRIERS / SPECIAL NEEDS HEARING IMPAIRED?NO VISION IMPAIRED?YES :CORRECTIVE LENSES LEARNING PREFERENCES?YES :DEMONSTRATION/VERBAL INSTRUCTION PAIN CLINIC PFS, CLERGY, PUBLIC HEALTH REFERRALS HAS THE PATIENT BEEN EDUCATED REGARDING HIS/HER PLAN OF CARE?YES HAS THE PATIENT BEEN EDUCATED REGARDING PAIN, THE RISK FOR PAIN, THE IMPORTANCE OF EFFECTIVE PAIN MANAGEMENT, AND THE PAIN ASSESSMENT PROCESS?YES LATEX QUESTIONNAIRE LATEX ALLERGY : HAVE YOU EVER DEVELOPED ANY TYPE OF REACTION AFTER HANDLING LATEX PRODUCTS SUCH RUBBER GLOVES, CONDOMS, DIAPHRAGMS, BALLOONS, SOCKS, OR UNDERWEAR?NO LATEX ALLERGY : HAVE YOU EVER DEVELOPED ANY TYPE OF REACTION DURING OR AFTER DENTAL APPOINTMENT, VAGINAL/RECTAL EXAMINATION, SURGICAL PROCEDURE, OR ANY OTHER EXPOSURE?NO LATEX RISK : HAVE YOU EVER HAD ANY DIFFICULTY BREATHING OR HIVES AFTER EATING OR HANDLING ANY FRUITS, OR VEGETABLES; SUCH KIWI, BANANAS, STONE FRUITS, OR CHESTNUTSNO LATEX RISK : DO YOU HAVE A PREVIOUS PERSONAL HISTORY OF MORE THAN NINE SURGERIES, SPINA BIFIDA, OR REPEATED CATHERIZATIONS? NO LATEX RISK : ARE YOU FREQUENTLY EXPOSED TO LATEX PRODUCTS IN YOUR OCCUPATION?NO DATE ASKED : 02/26/2019 CAFFEINE CAFFEINE USE?YES HOW OFTEN AND HOW MUCH? 2 CUPS IN THE AM ADVANCE DIRECTIVE ADVANCE DIRECTIVE DISCUSSED WITH PATIENT:YES HCP IS IVAN SCHNEIDER SYNAGOGUE [id number] OTHER NONE MARITAL STATUS: SINGLE. ALCOHOL SCREENING DID YOU HAVE A DRINK CONTAINING ALCOHOL IN THE PAST YEAR?YES HOW OFTEN DID YOU HAVE SIX OR MORE DRINKS ON ONE OCCASION IN THE PAST YEAR?NEVER (0 POINTS) HOW MANY DRINKS DID YOU HAVE ON A TYPICAL DAY WHEN YOU WERE DRINKING IN THE PAST YEAR?1 OR 2 (0 POINTS) HOW OFTEN DID YOU HAVE A DRINK CONTAINING ALCOHOL IN THE PAST YEAR?MONTHLY OR LESS (1 POINT) POINTS1 INTERPRETATIONNEGATIVE REVIEWED WITH PT 02/26/19 1015 BVREVIEWED WITH PATIENT 03/19/19 1033 NLJREVIEWED WITH PATIENT 04/16/19 1037 BVREVIEWED WITH PATIENT 06/23/19 1110 JS. HOSPITALIZATION/MAJOR DIAGNOSTIC PROCEDURE PNEUMONIA 01/2015 R/O STROKE 10/2015 DEEP VEIN THROMBOSIS 1988 DVT WITH PULMONARY EMBOLISM 2009 REVIEW OF SYSTEMS REVIEWED BY: PROVIDER: ALDAIR BASSETT . CONSTITUTIONAL: ANY CHANGE IN YOUR MEDICAL CONDITION? NO . CHILLS NO . FEVER NO . INFECTION: DO YOU HAVE NEW INFECTIONS? NO . DO YOU HAVE HISTORY OF MRSA? NO . MUSCULOSKELETAL: ANY NEW PATTERNS OF PAIN OR NUMBNESS? NO . GASTROENTEROLOGY: ANY NEW CHANGE IN BOWEL CONTROL? NO . GENITOURINARY: ANY NEW CHANGE IN BLADDER CONTROL? NO . IS THERE A CHANCE YOU COULD BE ? NO . HEMATOLOGY/LYMPH: DO YOU TAKE ANY BLOOD THINNERS? (FOR EXAMPLE- COUMADIN, PLAVIX, AGGRENOX, PLATEL, PRADAXA, OR XARELTO) YES, COUMADIN . WHEN WAS YOUR LAST DOSE? DATE: 06/22/19 TIME:1800 . NEUROLOGY: HAVE YOU FALLEN IN THE PAST 12 MONTHS? NO . ANY NEW EXTREMITY NUMBNESS OR WEAKNESS? NO . CARDIOLOGY: DO YOU HAVE A PACEMAKER OR DEFIBRILLATOR? NO . RESPIRATORY: HAVE YOU BEEN SICK IN THE PAST WEEK? NO . FEVER NO . FLU LIKE SYMPTOMS? NO . COUGH NO . INTEGUMENTARY: DO YOU HAVE ANY RASHES OR OPEN SORES? NO . ALLERGIC/IMMUNO: ARE YOU ALLERGIC TO IV DYE? NO . ANY NEW ALLERGIES? NO . PSYCHIATRIC: DO YOU HAVE THOUGHTS OF HURTING YOURSELF OR SOMEONE ELSE? NO . ARE YOU ABUSED, NEGLECTED, OR IN AN UNSAFE ENVIRONMENT? NO . ENDOCRINOLOGY: ARE YOU DIABETIC? YES . OTHER: DO YOU NEED ANY PRESCRIPTIONS? YES, WOULD LIKE SOMETHING FOR PAIN . IF YES, PLEASE LIST: ____ . ANY NEW PROBLEMS WITH YOUR MEDICATIONS? YES, STATES THEE MAKES HER HEAD FEEL FUZZY, UNABLE TO CONCENTRATE . WHEN DID YOU LAST EAT? ____ . WHEN DID YOU LAST DRINK? ____ . WHAT DID YOU LAST DRINK? ____ . NAME OF PERSON DRIVING YOU HOME? ____ . DO YOU HAVE ANY OTHER QUESTIONS OR CONCERNS YES, MEDICATION QUESTIONS . VITAL SIGNS WT 288.5 LBS, HT 5'4", BMI 49.52 INDEX, BP 127/58 MM HG, HR 90 /MIN, RR 18 /MIN, TEMP 97.4 F, OXYGEN SAT % 96%, SAFE IN ENV? (Y/N) YES, NA INITIALS AW 1109, REVIEWED BY: JIMMY. EXAMINATION GENERAL EXAMINATION: GENERALNO ACUTE DISTRESS, WELL NOURISHED AND HYDRATED. PSYCHAPPROPRIATE MOOD AND AFFECT . LUNGS:CLEAR TO AUSCULTATION BILATERALLY, NO WHEEZES, RHONCHI, RALES. HEART:NO MURMURS, REGULAR RATE AND RHYTHM. ASSESSMENTS RHEUMATOID ARTHRITIS INVOLVING MULTIPLE SITES WITH POSITIVE RHEUMATOID FACTOR - M05.79 (PRIMARY) TREATMENT RHEUMATOID ARTHRITIS INVOLVING MULTIPLE SITES WITH POSITIVE RHEUMATOID FACTOR STOP LYRICA CAPSULE, 75 MG, 1 CAPSULE, ORALLY, TWICE DAILY START GABAPENTIN CAPSULE, 100 MG, 1 CAPSULE, ORALLY, BID X3 DAYS THEN INCREASE TO TID, 30 DAYS, 90 CLINICAL NOTES: 63-YEAR-OLD FEMALE IN FOR CHRONIC PAIN FOLLOW-UP. GIVEN PRESENTING SYMPTOMS AND RESULTS PHYSICAL EXAMINATION RECOMMENDED DISCONTINUATION OF LYRICA AND STARTING GABAPENTIN 100 MG TWICE A DAY X3 DAYS THEN INCREASING TO 100 MG 3 TIMES A DAY. WE'LL FOLLOW-UP IN ONE MONTH TO DETERMINE EFFICACY OF TREATMENT. PATIENT HAS EXPRESSED UNDERSTANDING OF AND WAS IN AGREEMENT WITH TREATMENT PLAN. GIVEN TIME TO ASK QUESTIONS AND EXPRESS CONCERNS. PREVENTIVE MEDICINE PAIN CLINIC TEACHING: MEDICATIONS PRINTED AND REVIEWED INFORMATION ON NEW MEDICATION, GABAPENTIN, WITH PATIENT. PATIENT VERBALIZED AN UNDERSTANDING. KARISSA THAKKAR 06/23/2019 11:41:34 AM > . PROCEDURE CODES FA211 ESTABILISHED PATIENT [facility] CHARGE DISPOSITION & COMMUNICATION FOLLOW UP 4 WEEKS (REASON: MEDICATION CHANGE) ELECTRONICALLY SIGNED BY HARI NERI ON 06/24/2019 AT 09:13 AM EST DISCLAIMER : THIS IS A VISIT SUMMARY EXTRACTED FROM THE [employer] CHART. IT IS NOT A COPY OF THE [employer] PROGRESS NOTE. CURTIS
== END ==
LOC: M PAIN 10:45
PROVIDERS: ATTEND Family Medicine
DX: M05.79 Rheumatoid arthritis with rheumatoid factor of multiple sites without organ or systems involvement (principal); G89.29 Other chronic pain; I10 Essential (primary) hypertension; E78.5 Hyperlipidemia, unspecified; E11.9 Type 2 diabetes mellitus without complications; Z86.59 Personal history of other mental and behavioral disorders; G25.81 Restless legs syndrome; G47.30 Sleep apnea, unspecified; M79.7 Fibromyalgia; E03.9 Hypothyroidism, unspecified; Z96.659 Presence of unspecified artificial knee joint; Z87.891 Personal history of nicotine dependence; Z88.8 Allergy status to other drugs, medicaments and biological substances; Z86.718 Personal history of other venous thrombosis and embolism; Z79.01 Long term (current) use of anticoagulants; E66.01 Morbid (severe) obesity due to excess calories; Z68.42 Body mass index [BMI] 45.0-49.9, adult; Z79.4 Long term (current) use of insulin; Z79.899 Other long term (current) drug therapy

== ENCOUNTER → 2019-07-23 | Outpatient (CLI) | payer MEDICARE, OTHER ==
[~2019-07-23] MED LIST changes: +OMEP-172 PO; -OMEP20CA4 PO
--- NOTE | 2019-07-27 02:38 | ECWPNPC ---
PATIENT NAME: CANDIS SCHNEIDER : 1955 GENDER: FEMALE VISIT DATE: 07/23/2019 DISCHARGE DATE: 07/23/19 1016 VISIT LOCKED DATE TIME: PHYSICIAN: JACKIE FOSTER RESOURCE: JACKIE FOSTER REASON FOR APPOINTMENT 1. MEDICATION CHANGE HISTORY OF PRESENT ILLNESS HISTORY OF PRESENT ILLNESS: PAIN THE PATIENT DESCRIBES THE PAIN... 63-YEAR-OLD FEMALE IN FOR CHRONIC PAIN FOLLOW-UP. SHE RATES HER PAIN CURRENTLY AT A 6 OUT OF 10 AND DESCRIBES IT ACHING. AT LAST CLINIC VISIT HER LYRICA WAS DISCONTINUED AND SHE WAS STARTED ON GABAPENTIN PATIENT REPORTS INCREASED MENTAL CLARITY SINCE RESTARTING THE GABAPENTIN AND SHE DOES ADMIT THAT IT SEEMS TO BE HELPING HER RESTLESS LEG SYNDROME. FALL RISK SCREENING: SCREENING :NO FALLS REPORTED IN THE LAST YEAR CURRENT MEDICATIONS TAKING COUMADIN 2.5 MG TABLET ORALLY DIRECTED TAKING SPIRONOLACTONE 25 MG TABLET ORALLY TWICE A DAY TAKING BENAZEPRIL HCL 10 MG TABLET ORALLY DAILY TAKING SERTRALINE HCL 100 MG TABLET ORALLY DAILY TAKING TRILIPIX 135 MG CAPSULE DELAYED RELEASE ORALLY ONCE A DAY TAKING METFORMIN 1000 MG BID TAKING ZETIA 10 MG TABLET ORALLY ONCE A DAY TAKING LEVOTHROYXINE 137 MCG DAILY TAKING BACLOFEN 20 MG TABLET 1 TABLET WITH FOOD OR MILK ORALLY DAILY TAKING VITAMIN D 2000 UNIT TABLET 2 TABLETS ORALLY ONCE A DAY TAKING TOUJEO INSULIN INJECTION 300 ML , NOTES: 80 UNITS DAILY TAKING BYDUREON 2MG/VIAL ONCE WEEKLY TAKING ACTOS 15 MG TABLET 1 TABLET ORALLY ONCE A DAY TAKING JARDIANCE 25 MG TABLET 1 TABLET ORALLY ONCE A DAY TAKING CYMBALTA 30 MG CAPSULE DELAYED RELEASE PARTICLES ORALLY TWICE A DAY TAKING ALLOPURINOL 100 MG TABLET 1 CAP ORAL DAILY TAKING HUMALOG 100 UNIT/ML SOLUTION DIRECTED SUBCUTANEOUS TAKING MIRAPEX 1 MG TABLET ORALLY BID TAKING RESTORIL 30 MG CAPSULE 1 CAPSULE AT BEDTIME NEEDED ORALLY ONCE A DAY, NOTES: FOR RESTLESS LEG SYNDROME TAKING MAY HAVE - - MEDICAL MARIJUANA DAILY NEEDED TAKING GABAPENTIN 100 MG CAPSULE 1 CAPSULE ORALLY BID X3 DAYS THEN INCREASE TO TID NOT-TAKING KEVZARA 200 MG/1.14ML SOLUTION AUTO-INJECTOR 1.14 ML SUBCUTANEOUS , NOTES: ON HOLD OF 04/16/2018 MEDICATION LIST REVIEWED AND RECONCILED WITH THE PATIENT PAST MEDICAL HISTORY HYPERTENSION HYPERLIPIDEMIA TYPE 2 DIABETES RHEUMATHOID ARTHRITIS DEPRESSION AND ANXIETY RESTLESS LEG SYNDROME SLEEP APNEA FIBROMYALGIA GOUT HYPOTHYROID ALLERGIES QUININE SULFATE: NAUSEA/VOMITING - ALLERGY STATINS: EXACERBATES RESTLESS LEGS - SIDE EFFECTS SURGICAL HISTORY OPENED REDUCTION OF FRACTURED KNEE CAP 07/1984 ARTHROSCOPY 08/1987 ARTHROSCOPY 08/1994 TOTAL KNEE REPLACEMENT 10/2001 CHOLECYSTECTOMY 08/1979 PARATHYROID 12/2012 APENDECTOMY 04/2017 FAMILY HISTORY FATHER: , DIAGNOSED WITH HYPERTENSION MOTHER: , HYPERTENSION, UNSPECIFIED CEREBRAL ARTERY OCCLUSION WITH CEREBRAL INFARCTION, OTHER MALIGNANT NEOPLASM OF UNSPECIFIED SITE SIBLINGS: ALIVE, HYPERTENSION MATERNAL GRAND MOTHER: LUPUS- DIAGNOSED IN 70'S 3 BROTHER(S) . PATERNAL GRANDMOTHER DEMENTIA, BROTHERS HAVE HTN, MOTHER HAD MULTIPLE MYLOMA. SOCIAL HISTORY GENERAL: TOBACCO USE ARE YOU A:FORMER SMOKER HOW LONG HAS IT BEEN SINCE YOU LAST SMOKED?> 10 YEARS OTHERS AT HOME: NONE. HOUSING: OWNS HOME. EDUCATION LEVEL OF EDUCATION:COLLEGE DIET: REGULAR, CARBOHYDRATE CONTROLLED. LANGUAGE LANGUAGES SPOKEN:YORUBA RECREATIONAL DRUG USE DRUG USE?NO EXERCISE: WALKS. LEARNING BARRIERS / SPECIAL NEEDS HEARING IMPAIRED?NO VISION IMPAIRED?YES :CORRECTIVE LENSES LEARNING PREFERENCES?YES :DEMONSTRATION/VERBAL INSTRUCTION PAIN CLINIC PFS, CLERGY, PUBLIC HEALTH REFERRALS HAS THE PATIENT BEEN EDUCATED REGARDING HIS/HER PLAN OF CARE?YES HAS THE PATIENT BEEN EDUCATED REGARDING PAIN, THE RISK FOR PAIN, THE IMPORTANCE OF EFFECTIVE PAIN MANAGEMENT, AND THE PAIN ASSESSMENT PROCESS?YES LATEX QUESTIONNAIRE LATEX ALLERGY : HAVE YOU EVER DEVELOPED ANY TYPE OF REACTION AFTER HANDLING LATEX PRODUCTS SUCH RUBBER GLOVES, CONDOMS, DIAPHRAGMS, BALLOONS, SOCKS, OR UNDERWEAR?NO LATEX ALLERGY : HAVE YOU EVER DEVELOPED ANY TYPE OF REACTION DURING OR AFTER DENTAL APPOINTMENT, VAGINAL/RECTAL EXAMINATION, SURGICAL PROCEDURE, OR ANY OTHER EXPOSURE?NO DATE ASKED : 02/26/2019 LATEX RISK : HAVE YOU EVER HAD ANY DIFFICULTY BREATHING OR HIVES AFTER EATING OR HANDLING ANY FRUITS, OR VEGETABLES; SUCH KIWI, BANANAS, STONE FRUITS, OR CHESTNUTSNO LATEX RISK : DO YOU HAVE A PREVIOUS PERSONAL HISTORY OF MORE THAN NINE SURGERIES, SPINA BIFIDA, OR REPEATED CATHERIZATIONS? NO LATEX RISK : ARE YOU FREQUENTLY EXPOSED TO LATEX PRODUCTS IN YOUR OCCUPATION?NO CAFFEINE CAFFEINE USE?YES HOW OFTEN AND HOW MUCH? 2 CUPS IN THE AM ADVANCE DIRECTIVE ADVANCE DIRECTIVE DISCUSSED WITH PATIENT:YES HCP IS LAURENERFernando SCHNEIDER RASTAFARIAN [id number] OTHER NONE MARITAL STATUS: SINGLE. ALCOHOL SCREENING DID YOU HAVE A DRINK CONTAINING ALCOHOL IN THE PAST YEAR?YES HOW OFTEN DID YOU HAVE SIX OR MORE DRINKS ON ONE OCCASION IN THE PAST YEAR?NEVER (0 POINTS) HOW MANY DRINKS DID YOU HAVE ON A TYPICAL DAY WHEN YOU WERE DRINKING IN THE PAST YEAR?1 OR 2 (0 POINTS) HOW OFTEN DID YOU HAVE A DRINK CONTAINING ALCOHOL IN THE PAST YEAR?MONTHLY OR LESS (1 POINT) POINTS1 INTERPRETATIONNEGATIVE REVIEWED WITH PT 02/26/19 1015 BVREVIEWED WITH PATIENT 03/19/19 1033 NLJREVIEWED WITH PATIENT 04/16/19 1037 BVREVIEWED WITH PATIENT 06/23/19 1110 JS. HOSPITALIZATION/MAJOR DIAGNOSTIC PROCEDURE PNEUMONIA 01/2015 R/O STROKE 10/2015 DEEP VEIN THROMBOSIS 1988 DVT WITH PULMONARY EMBOLISM 2009 REVIEW OF SYSTEMS REVIEWED BY: PROVIDER: ALDAIR NORIEGA-Wale . CONSTITUTIONAL: ANY CHANGE IN YOUR MEDICAL CONDITION? NO . CHILLS NO . FEVER NO . INFECTION: DO YOU HAVE NEW INFECTIONS? NO . DO YOU HAVE HISTORY OF MRSA? NO . MUSCULOSKELETAL: ANY NEW PATTERNS OF PAIN OR NUMBNESS? NO . GASTROENTEROLOGY: ANY NEW CHANGE IN BOWEL CONTROL? NO . GENITOURINARY: ANY NEW CHANGE IN BLADDER CONTROL? NO . IS THERE A CHANCE YOU COULD BE ? NO . HEMATOLOGY/LYMPH: DO YOU TAKE ANY BLOOD THINNERS? (FOR EXAMPLE- COUMADIN, PLAVIX, AGGRENOX, PLATEL, PRADAXA, OR XARELTO) YES, COUMADIN . WHEN WAS YOUR LAST DOSE? DATE: TIME: . NEUROLOGY: HAVE YOU FALLEN IN THE PAST 12 MONTHS? NO . ANY NEW EXTREMITY NUMBNESS OR WEAKNESS? NO . CARDIOLOGY: DO YOU HAVE A PACEMAKER OR DEFIBRILLATOR? NO . RESPIRATORY: HAVE YOU BEEN SICK IN THE PAST WEEK? NO . FEVER NO . FLU LIKE SYMPTOMS? NO . COUGH NO . INTEGUMENTARY: DO YOU HAVE ANY RASHES OR OPEN SORES? NO . ALLERGIC/IMMUNO: ARE YOU ALLERGIC TO IV DYE? NO . ANY NEW ALLERGIES? NO . PSYCHIATRIC: DO YOU HAVE THOUGHTS OF HURTING YOURSELF OR SOMEONE ELSE? NO . ARE YOU ABUSED, NEGLECTED, OR IN AN UNSAFE ENVIRONMENT? NO . ENDOCRINOLOGY: ARE YOU DIABETIC? YES . OTHER: DO YOU NEED ANY PRESCRIPTIONS? MIGUEL . IF YES, PLEASE LIST: ____ . ANY NEW PROBLEMS WITH YOUR MEDICATIONS? NO . WHEN DID YOU LAST EAT? ____ . WHEN DID YOU LAST DRINK? ____ . WHAT DID YOU LAST DRINK? ____ . NAME OF PERSON DRIVING YOU HOME? ____ . DO YOU HAVE ANY OTHER QUESTIONS OR CONCERNS NO . VITAL SIGNS WT 286.0 LBS, HT 5'4", BMI 49.09 INDEX, BP 128/58 MM HG, HR 93 /MIN, RR 18 /MIN, TEMP 96.7 F, OXYGEN SAT % 95%, NA INITIALS AW 0955, REVIEWED BY: EM. EXAMINATION GENERAL EXAMINATION: GENERALNO ACUTE DISTRESS, WELL NOURISHED AND HYDRATED. PSYCHAPPROPRIATE MOOD AND AFFECT . LUNGS:CLEAR TO AUSCULTATION BILATERALLY, NO WHEEZES, RHONCHI, RALES. HEART:NO MURMURS, REGULAR RATE AND RHYTHM. ASSESSMENTS RHEUMATOID ARTHRITIS INVOLVING MULTIPLE SITES WITH POSITIVE RHEUMATOID FACTOR - M05.79 (PRIMARY) TREATMENT RHEUMATOID ARTHRITIS INVOLVING MULTIPLE SITES WITH POSITIVE RHEUMATOID FACTOR REFILL GABAPENTIN CAPSULE, 300 MG, 1 CAPSULE, ORALLY, TID, 90 DAYS, 270 CAPSULE CLINICAL NOTES: 63-YEAR-OLD FEMALE IN FOR CHRONIC PAIN FOLLOW-UP. GIVEN PRESENTING SYMPTOMS AND RESULTS OF PHYSICAL EXAMINATION RECOMMENDED INCREASING GABAPENTIN TO 300 MG 3 TIMES A DAY WITH FOLLOW-UP IN 2 MONTHS. PATIENT HAS EXPRESSED UNDERSTANDING OF AND WAS IN AGREEMENT WITH TREATMENT PLAN. GIVEN TIME TO ASK QUESTIONS AND EXPRESS CONCERNS. TRANSFER GIVEN. PROCEDURE CODES FA211 ESTABILISHED PATIENT [facility] CHARGE DISPOSITION & COMMUNICATION FOLLOW UP 2 MONTHS (REASON: RHEUMATOID ARTHRITIS) ELECTRONICALLY SIGNED BY HARI NERI ON 07/26/2019 AT 08:51 AM EST DISCLAIMER : THIS IS A VISIT SUMMARY EXTRACTED FROM THE [employer] CHART. IT IS NOT A COPY OF THE [employer] PROGRESS NOTE. CURTIS
== END ==
LOC: M PAIN 10:00
PROVIDERS: ATTEND Family Medicine
DX: M05.79 Rheumatoid arthritis with rheumatoid factor of multiple sites without organ or systems involvement (principal); G89.29 Other chronic pain; I10 Essential (primary) hypertension; E78.5 Hyperlipidemia, unspecified; E11.9 Type 2 diabetes mellitus without complications; Z86.59 Personal history of other mental and behavioral disorders; G25.81 Restless legs syndrome; G47.30 Sleep apnea, unspecified; M79.7 Fibromyalgia; E03.9 Hypothyroidism, unspecified; Z87.891 Personal history of nicotine dependence; Z88.8 Allergy status to other drugs, medicaments and biological substances; Z79.01 Long term (current) use of anticoagulants; E66.01 Morbid (severe) obesity due to excess calories; Z68.42 Body mass index [BMI] 45.0-49.9, adult; Z79.4 Long term (current) use of insulin; Z79.899 Other long term (current) drug therapy

== ENCOUNTER → 2019-09-23 | Outpatient (CLI) | payer MEDICARE, OTHER ==
[~2019-09-23] MED LIST changes: -ARTIDRO2 OU; -BENA10TA9 PO; +BENA1TAB24 PO; -GLIM4TAB3 PO; +GLIM4TAB5 PO; -OMEP-172 PO; +OMEP1CAP73 PO; +POLYOPD OU; -ROPI1TAB PO; +ROPI1TAB3 PO
--- NOTE | 2019-09-25 04:40 | ECWPNPC ---
PATIENT NAME: CANDIS SCHNEIDER : 1955 GENDER: FEMALE VISIT DATE: 09/23/2019 DISCHARGE DATE: 09/23/19 1408 VISIT LOCKED DATE TIME: PHYSICIAN: JACKIE FOSTER RESOURCE: JACKIE FOSTER REASON FOR APPOINTMENT 1. RHEUMATOID ARTHRITIS HISTORY OF PRESENT ILLNESS HISTORY OF PRESENT ILLNESS: PAIN THE PATIENT DESCRIBES THE PAIN... 63-YEAR-OLD FEMALE IN FOR CHRONIC PAIN FOLLOW-UP. SHE RATES HER PAIN CURRENTLY AT A 7 OUT OF 10 AND DESCRIBES IT ACHING, SHARP, AND STABBING. SHE FEELS HER GABAPENTIN IS HELPFUL BUT DOES QUESTION AN INCREASE IN DOSAGE. FALL RISK SCREENING: SCREENING :NO FALLS REPORTED IN THE LAST YEAR CURRENT MEDICATIONS TAKING COUMADIN 2.5 MG TABLET ORALLY DIRECTED TAKING SPIRONOLACTONE 25 MG TABLET ORALLY TWICE A DAY TAKING BENAZEPRIL HCL 10 MG TABLET ORALLY DAILY TAKING SERTRALINE HCL 100 MG TABLET ORALLY DAILY TAKING TRILIPIX 135 MG CAPSULE DELAYED RELEASE ORALLY ONCE A DAY TAKING METFORMIN 1000 MG BID TAKING ZETIA 10 MG TABLET ORALLY ONCE A DAY TAKING LEVOTHROYXINE 137 MCG DAILY TAKING BACLOFEN 20 MG TABLET 1 TABLET WITH FOOD OR MILK ORALLY DAILY TAKING VITAMIN D 125 MCG (5000 UT) CAPSULE 1 CAPSULE ORALLY ONCE A DAY TAKING TOUJEO INSULIN INJECTION 300 ML , NOTES: 80 UNITS DAILY TAKING BYDUREON 2MG/VIAL ONCE WEEKLY TAKING ACTOS 15 MG TABLET 1 TABLET ORALLY ONCE A DAY TAKING JARDIANCE 25 MG TABLET 1 TABLET ORALLY ONCE A DAY TAKING CYMBALTA 30 MG CAPSULE DELAYED RELEASE PARTICLES ORALLY TWICE A DAY TAKING ALLOPURINOL 100 MG TABLET 1 CAP ORAL DAILY TAKING HUMALOG 100 UNIT/ML SOLUTION DIRECTED SUBCUTANEOUS TAKING MIRAPEX 1 MG TABLET ORALLY BID TAKING RESTORIL 30 MG CAPSULE 1 CAPSULE AT BEDTIME NEEDED ORALLY ONCE A DAY, NOTES: FOR RESTLESS LEG SYNDROME TAKING MAY HAVE - - MEDICAL MARIJUANA DAILY NEEDED TAKING GABAPENTIN 300 MG CAPSULE 1 CAPSULE ORALLY TID TAKING EXTRA STRENGTH ACETAMINOPHEN 500 MG CAPSULE 2 CAPS ORALLY EVERY 6 HRS NEEDED TAKING STOOL SOFTENER 100 MG CAPSULE 1 CAPSULE NEEDED ORALLY ONCE A DAY NOT-TAKING KEVZARA 200 MG/1.14ML SOLUTION AUTO-INJECTOR 1.14 ML SUBCUTANEOUS , NOTES: ON HOLD OF 04/16/2018 MEDICATION LIST REVIEWED AND RECONCILED WITH THE PATIENT PAST MEDICAL HISTORY HYPERTENSION HYPERLIPIDEMIA TYPE 2 DIABETES RHEUMATHOID ARTHRITIS DEPRESSION AND ANXIETY RESTLESS LEG SYNDROME SLEEP APNEA FIBROMYALGIA GOUT HYPOTHYROID DVT LEFT UPPER LEG PULMONARY EMBOLISM ALLERGIES QUININE SULFATE: NAUSEA/VOMITING STATINS: EXACERBATES RESTLESS LEGS - SIDE EFFECTS SURGICAL HISTORY OPENED REDUCTION OF FRACTURED KNEE CAP- LEFT 07/1984 ARTHROSCOPY LEFT KNEE 08/1987 ARTHROSCOPY LEFT KNEE 08/1994 TOTAL KNEE REPLACEMENT-LEFT 10/2001 CHOLECYSTECTOMY 08/1979 PARATHYROIDECTOMY OF ONE GLAND 12/2012 APPENDECTOMY 04/2017 FAMILY HISTORY FATHER: , DIAGNOSED WITH HYPERTENSION MOTHER: , HYPERTENSION, UNSPECIFIED CEREBRAL ARTERY OCCLUSION WITH CEREBRAL INFARCTION, OTHER MALIGNANT NEOPLASM OF UNSPECIFIED SITE SIBLINGS: ALIVE, HYPERTENSION MATERNAL GRAND MOTHER: LUPUS- DIAGNOSED IN 70S 3 BROTHER(S) . PATERNAL GRANDMOTHER DEMENTIA, BROTHERS HAVE HTN, MOTHER HAD MULTIPLE MYLOMA. SOCIAL HISTORY GENERAL: TOBACCO USE ARE YOU A:FORMER SMOKER HOW LONG HAS IT BEEN SINCE YOU LAST SMOKED?> 10 YEARS OTHERS AT HOME: NONE. HOUSING: OWNS HOME. EDUCATION LEVEL OF EDUCATION:COLLEGE DIET: REGULAR, CARBOHYDRATE CONTROLLED. LANGUAGE LANGUAGES SPOKEN:UPPER SORBIAN DOMESTIC VIOLENCE DO YOU FEEL SAFE IN YOUR ENVIRONMENT?YES RECREATIONAL DRUG USE DRUG USE?NO EXERCISE: WALKS. LEARNING BARRIERS / SPECIAL NEEDS BARRIERS TO LEARNING?NO HEARING IMPAIRED?NO VISION IMPAIRED?YES :CORRECTIVE LENSES COGNITIVELY IMPAIRED?NO READINESS TO LEARN?YES LEARNING PREFERENCES?YES :DEMONSTRATION/VERBAL INSTRUCTION LEARNING CAPABILITIES PRESENT?YES EMOTIONAL BARRIERS?NO SPECIAL DEVICES?YES :CANE [employer] TRAFFIC SUPERVISOR NEEDED?NO PAIN CLINIC PFS, CLERGY, PUBLIC HEALTH REFERRALS HAS THE PATIENT BEEN EDUCATED REGARDING HIS/HER PLAN OF CARE?YES HAS THE PATIENT BEEN EDUCATED REGARDING PAIN, THE RISK FOR PAIN, THE IMPORTANCE OF EFFECTIVE PAIN MANAGEMENT, AND THE PAIN ASSESSMENT PROCESS?YES LATEX QUESTIONNAIRE LATEX ALLERGY : HAVE YOU EVER DEVELOPED ANY TYPE OF REACTION AFTER HANDLING LATEX PRODUCTS SUCH RUBBER GLOVES, CONDOMS, DIAPHRAGMS, BALLOONS, SOCKS, OR UNDERWEAR?NO LATEX ALLERGY : HAVE YOU EVER DEVELOPED ANY TYPE OF REACTION DURING OR AFTER DENTAL APPOINTMENT, VAGINAL/RECTAL EXAMINATION, SURGICAL PROCEDURE, OR ANY OTHER EXPOSURE?NO LATEX RISK : HAVE YOU EVER HAD ANY DIFFICULTY BREATHING OR HIVES AFTER EATING OR HANDLING ANY FRUITS, OR VEGETABLES; SUCH KIWI, BANANAS, STONE FRUITS, OR CHESTNUTSNO LATEX RISK : DO YOU HAVE A PREVIOUS PERSONAL HISTORY OF MORE THAN NINE SURGERIES, SPINA BIFIDA, OR REPEATED CATHERIZATIONS? NO LATEX RISK : ARE YOU FREQUENTLY EXPOSED TO LATEX PRODUCTS IN YOUR OCCUPATION?NO DATE ASKED : 09/23/2019 CAFFEINE CAFFEINE USE?YES HOW OFTEN AND HOW MUCH? 2 CUPS IN THE AM ADVANCE DIRECTIVE ADVANCE DIRECTIVE DISCUSSED WITH PATIENT:YES HCP IS BROTHER- NELY SCHNEIDER MANDAEN [id number] OTHER NONE MARITAL STATUS: SINGLE. ALCOHOL SCREENING DID YOU HAVE A DRINK CONTAINING ALCOHOL IN THE PAST YEAR?YES HOW OFTEN DID YOU HAVE SIX OR MORE DRINKS ON ONE OCCASION IN THE PAST YEAR?NEVER (0 POINTS) HOW MANY DRINKS DID YOU HAVE ON A TYPICAL DAY WHEN YOU WERE DRINKING IN THE PAST YEAR?1 OR 2 (0 POINTS) HOW OFTEN DID YOU HAVE A DRINK CONTAINING ALCOHOL IN THE PAST YEAR?MONTHLY OR LESS (1 POINT) POINTS1 INTERPRETATIONNEGATIVE REVIEWED WITH PT 02/26/19 1015 BVREVIEWED WITH PATIENT 03/19/19 1033 NLJREVIEWED WITH PATIENT 04/16/19 1037 BVREVIEWED WITH PATIENT 06/23/19 1110 JS09/23/19 1325 REVIEWED WITH PT. AD. HOSPITALIZATION/MAJOR DIAGNOSTIC PROCEDURE PNEUMONIA 01/2015 R/O STROKE 10/2015 DEEP VEIN THROMBOSIS 1988 DVT WITH PULMONARY EMBOLISM 2009 REVIEW OF SYSTEMS REVIEWED BY: PROVIDER: ALDAIR FOSTER TELEGRAPH EQUIPMENT MAINTAINER-C . CONSTITUTIONAL: ANY CHANGE IN YOUR MEDICAL CONDITION? NO . CHILLS NO . FEVER NO . INFECTION: DO YOU HAVE NEW INFECTIONS? NO . DO YOU HAVE HISTORY OF MRSA? NO . MUSCULOSKELETAL: ANY NEW PATTERNS OF PAIN OR NUMBNESS? NO . GASTROENTEROLOGY: ANY NEW CHANGE IN BOWEL CONTROL? NO . GENITOURINARY: ANY NEW CHANGE IN BLADDER CONTROL? NO . IS THERE A CHANCE YOU COULD BE ? NO . HEMATOLOGY/LYMPH: DO YOU TAKE ANY BLOOD THINNERS? (FOR EXAMPLE- COUMADIN, PLAVIX, AGGRENOX, PLATEL, PRADAXA, OR XARELTO) YES, COUMADIN . WHEN WAS YOUR LAST DOSE? DATE: TIME:07/08 1800 . NEUROLOGY: HAVE YOU FALLEN IN THE PAST 12 MONTHS? NO . ANY NEW EXTREMITY NUMBNESS OR WEAKNESS? NO . CARDIOLOGY: DO YOU HAVE A PACEMAKER OR DEFIBRILLATOR? NO . RESPIRATORY: HAVE YOU BEEN SICK IN THE PAST WEEK? NO . FEVER NO . FLU LIKE SYMPTOMS? NO . COUGH NO . INTEGUMENTARY: DO YOU HAVE ANY RASHES OR OPEN SORES? NO . ALLERGIC/IMMUNO: ARE YOU ALLERGIC TO IV DYE? NO . ANY NEW ALLERGIES? NO . PSYCHIATRIC: DO YOU HAVE THOUGHTS OF HURTING YOURSELF OR SOMEONE ELSE? NO . ARE YOU ABUSED, NEGLECTED, OR IN AN UNSAFE ENVIRONMENT? NO . ENDOCRINOLOGY: ARE YOU DIABETIC? YES, GLUCOSE 110 @ 12N . OTHER: DO YOU NEED ANY PRESCRIPTIONS? YES . IF YES, PLEASE LIST: GABAPENTIN . ANY NEW PROBLEMS WITH YOUR MEDICATIONS? NO . WHEN DID YOU LAST EAT? ____ . WHEN DID YOU LAST DRINK? ____ . WHAT DID YOU LAST DRINK? ____ . NAME OF PERSON DRIVING YOU HOME? ____ . DO YOU HAVE ANY OTHER QUESTIONS OR CONCERNS YES, STIFFNESS AND SORENESS WORSE, DEPRESSED . VITAL SIGNS WT 285.2 LBS, HT 5'4", BMI 48.95 INDEX, BP 130/61 MM HG, HR 83 /MIN, RR 19 /MIN, TEMP 96.8 F, OXYGEN SAT % 99%, SAFE IN ENV? (Y/N) Y, NA INITIALS MS 1319, REVIEWED BY: TIFFANY. EXAMINATION GENERAL EXAMINATION: GENERALNO ACUTE DISTRESS, WELL NOURISHED AND HYDRATED. PSYCHAPPROPRIATE MOOD AND AFFECT . LUNGS:CLEAR TO AUSCULTATION BILATERALLY, NO WHEEZES, RHONCHI, RALES. HEART:NO MURMURS, REGULAR RATE AND RHYTHM. ASSESSMENTS RHEUMATOID ARTHRITIS INVOLVING MULTIPLE SITES WITH POSITIVE RHEUMATOID FACTOR - M05.79 (PRIMARY) TREATMENT RHEUMATOID ARTHRITIS INVOLVING MULTIPLE SITES WITH POSITIVE RHEUMATOID FACTOR REFILL GABAPENTIN CAPSULE, 300 MG, 1 CAPSULE IN AM, AFTERNOON, AND 2 AT BEDTIME, ORALLY, TID, 90 DAYS, 360 CLINICAL NOTES: 63-YEAR-OLD FEMALE IN FOR CHRONIC PAIN FOLLOW-UP. GIVEN PRESENTING SYMPTOMS AND RESULTS OF PHYSICAL EXAMINATION RECOMMENDED INCREASING GABAPENTIN WITH FOLLOW-UP IN 2 MONTHS. PATIENT HAS EXPRESSED UNDERSTANDING OF AND WAS IN AGREEMENT WITH TREATMENT PLAN. GIVEN TIME TO ASK QUESTIONS AND EXPRESS CONCERNS. TRANSFER GIVEN. PROCEDURE CODES FA211 ESTABILISHED PATIENT [facility] CHARGE DISPOSITION & COMMUNICATION FOLLOW UP 2 MONTHS (REASON: RHEUMATOID) ELECTRONICALLY SIGNED BY HARI NERI ON 09/24/2019 AT 08:55 AM EST DISCLAIMER : THIS IS A VISIT SUMMARY EXTRACTED FROM THE [employer] CHART. IT IS NOT A COPY OF THE [employer] PROGRESS NOTE. MTDD
== END ==
LOC: M PAIN 13:00
PROVIDERS: ATTEND Family Medicine
DX: M05.79 Rheumatoid arthritis with rheumatoid factor of multiple sites without organ or systems involvement (principal); E11.9 Type 2 diabetes mellitus without complications; Z79.01 Long term (current) use of anticoagulants; Z79.4 Long term (current) use of insulin; Z79.891 Long term (current) use of opiate analgesic; Z79.899 Other long term (current) drug therapy; Z88.8 Allergy status to other drugs, medicaments and biological substances; Z87.891 Personal history of nicotine dependence

== ENCOUNTER → 2019-11-22 | Outpatient (CLI) | payer MEDICARE, OTHER ==
--- NOTE | 2019-11-24 04:33 | ECWPNPC ---
PATIENT NAME: CANDIS SCHNEIDER : 1955 GENDER: FEMALE VISIT DATE: 11/22/2019 DISCHARGE DATE: 11/22/19 1603 VISIT LOCKED DATE TIME: PHYSICIAN: JACKIE FOSTER RESOURCE: JACKIE FOSTER REASON FOR APPOINTMENT 1. RHEUMATOID 2 MONTH HISTORY OF PRESENT ILLNESS HISTORY OF PRESENT ILLNESS: PAIN THE PATIENT DESCRIBES THE PAIN... PERMISSION REQUESTED AND RECEIVED FOR PATIENT TO PERFORM TELEHEALTH VISIT. 63-YEAR-OLD FEMALE IN FOR CHRONIC PAIN FOLLOW-UP. GABAPENTIN WAS INCREASED AT LAST CLINIC VISIT AND PATIENT ADMITS TODAY THAT THIS HAS BEEN HELPFUL. SHE RATES HER PAIN CURRENTLY AT 6 OUT OF 10 AND DESCRIBES IT ACHING, AND SHARP. SHE DOES ADMIT TO FLAREUPS OF HER RHEUMATOID ARTHRITIS. FALL RISK SCREENING: SCREENING :NO FALLS REPORTED IN THE LAST YEAR CURRENT MEDICATIONS TAKING COUMADIN 2.5 MG TABLET ORALLY DIRECTED TAKING SPIRONOLACTONE 25 MG TABLET ORALLY TWICE A DAY TAKING BENAZEPRIL HCL 10 MG TABLET ORALLY DAILY TAKING SERTRALINE HCL 100 MG TABLET ORALLY DAILY TAKING TRILIPIX 135 MG CAPSULE DELAYED RELEASE ORALLY ONCE A DAY TAKING METFORMIN 1000 MG BID TAKING ZETIA 10 MG TABLET ORALLY ONCE A DAY TAKING LEVOTHROYXINE 137 MCG DAILY TAKING BACLOFEN 20 MG TABLET 1 TABLET WITH FOOD OR MILK ORALLY DAILY TAKING VITAMIN D 125 MCG (5000 UT) CAPSULE 1 CAPSULE ORALLY ONCE A DAY TAKING TOUJEO INSULIN INJECTION 300 ML , NOTES: 80 UNITS DAILY TAKING BYDUREON 2MG/VIAL ONCE WEEKLY TAKING ACTOS 15 MG TABLET 1 TABLET ORALLY ONCE A DAY TAKING JARDIANCE 25 MG TABLET 1 TABLET ORALLY ONCE A DAY TAKING CYMBALTA 30 MG CAPSULE DELAYED RELEASE PARTICLES ORALLY TWICE A DAY TAKING ALLOPURINOL 300 MG TABLET 1 CAP ORALLY DAILY TAKING HUMALOG 100 UNIT/ML SOLUTION DIRECTED SUBCUTANEOUS TAKING MIRAPEX 1 MG TABLET ORALLY BID TAKING RESTORIL 30 MG CAPSULE 1 CAPSULE AT BEDTIME NEEDED ORALLY ONCE A DAY, NOTES: FOR RESTLESS LEG SYNDROME TAKING MAY HAVE - - MEDICAL MARIJUANA DAILY NEEDED TAKING EXTRA STRENGTH ACETAMINOPHEN 500 MG CAPSULE 2 CAPS ORALLY EVERY 6 HRS NEEDED TAKING STOOL SOFTENER 100 MG CAPSULE 1 CAPSULE NEEDED ORALLY ONCE A DAY TAKING GABAPENTIN 300 MG CAPSULE 1 CAPSULE IN AM, AFTERNOON, AND 2 AT BEDTIME ORALLY TID NOT-TAKING KEVZARA 200 MG/1.14ML SOLUTION AUTO-INJECTOR 1.14 ML SUBCUTANEOUS , NOTES: ON HOLD OF 04/16/2018 MEDICATION LIST REVIEWED AND RECONCILED WITH THE PATIENT PAST MEDICAL HISTORY HYPERTENSION HYPERLIPIDEMIA TYPE 2 DIABETES RHEUMATHOID ARTHRITIS DEPRESSION AND ANXIETY RESTLESS LEG SYNDROME SLEEP APNEA FIBROMYALGIA GOUT HYPOTHYROID DVT LEFT UPPER LEG PULMONARY EMBOLISM ALLERGIES QUININE SULFATE: NAUSEA/VOMITING STATINS: EXACERBATES RESTLESS LEGS - SIDE EFFECTS SURGICAL HISTORY OPENED REDUCTION OF FRACTURED KNEE CAP- LEFT 07/1984 ARTHROSCOPY LEFT KNEE 08/1987 ARTHROSCOPY LEFT KNEE 08/1994 TOTAL KNEE REPLACEMENT-LEFT 10/2001 CHOLECYSTECTOMY 08/1979 PARATHYROIDECTOMY OF ONE GLAND 12/2012 APPENDECTOMY 04/2017 FAMILY HISTORY FATHER: , DIAGNOSED WITH HYPERTENSION MOTHER: , HYPERTENSION, UNSPECIFIED CEREBRAL ARTERY OCCLUSION WITH CEREBRAL INFARCTION, OTHER MALIGNANT NEOPLASM OF UNSPECIFIED SITE SIBLINGS: ALIVE, HYPERTENSION MATERNAL GRAND MOTHER: LUPUS- DIAGNOSED IN 70S 3 BROTHER(S) . PATERNAL GRANDMOTHER DEMENTIA, BROTHERS HAVE HTN, MOTHER HAD MULTIPLE MYLOMA. SOCIAL HISTORY GENERAL: TOBACCO USE ARE YOU A:FORMER SMOKER HOW LONG HAS IT BEEN SINCE YOU LAST SMOKED?> 10 YEARS OTHERS AT HOME: NONE. HOUSING: OWNS HOME. EDUCATION LEVEL OF EDUCATION:COLLEGE DIET: REGULAR, CARBOHYDRATE CONTROLLED. LANGUAGE LANGUAGES SPOKEN:ICELANDIC DOMESTIC VIOLENCE DO YOU FEEL SAFE IN YOUR ENVIRONMENT?YES NEW PATIENT PAIN DIARY PATIENT DESCRIBES PAIN :ACHING, HAVE IT ALL THE TIME FROM 0-10, WHAT LEVEL IS YOUR PAIN TODAY?6 PRECIPITATING FACTORS ACTIVITY, BAROMETRIC PRESSURE ALLEVIATING FACTORS HEAT IMPACT ON FUNCTION YES RECREATIONAL DRUG USE DRUG USE?NO EXERCISE: WALKS. 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?NO PAIN CLINIC PFS, CLERGY, PUBLIC HEALTH REFERRALS HAS THE PATIENT BEEN EDUCATED REGARDING HIS/HER PLAN OF CARE?YES HAS THE PATIENT BEEN EDUCATED REGARDING PAIN, THE RISK FOR PAIN, THE IMPORTANCE OF EFFECTIVE PAIN MANAGEMENT, AND THE PAIN ASSESSMENT PROCESS?YES LATEX QUESTIONNAIRE LATEX ALLERGY : HAVE YOU EVER DEVELOPED ANY TYPE OF REACTION AFTER HANDLING LATEX PRODUCTS SUCH RUBBER GLOVES, CONDOMS, DIAPHRAGMS, BALLOONS, SOCKS, OR UNDERWEAR?NO LATEX ALLERGY : HAVE YOU EVER DEVELOPED ANY TYPE OF REACTION DURING OR AFTER DENTAL APPOINTMENT, VAGINAL/RECTAL EXAMINATION, SURGICAL PROCEDURE, OR ANY OTHER EXPOSURE?NO DATE ASKED : 09/23/2019 LATEX RISK : HAVE YOU EVER HAD ANY DIFFICULTY BREATHING OR HIVES AFTER EATING OR HANDLING ANY FRUITS, OR VEGETABLES; SUCH KIWI, BANANAS, STONE FRUITS, OR CHESTNUTSNO LATEX RISK : DO YOU HAVE A PREVIOUS PERSONAL HISTORY OF MORE THAN NINE SURGERIES, SPINA BIFIDA, OR REPEATED CATHERIZATIONS? NO LATEX RISK : ARE YOU FREQUENTLY EXPOSED TO LATEX PRODUCTS IN YOUR OCCUPATION?NO CAFFEINE CAFFEINE USE?YES HOW OFTEN AND HOW MUCH? 2 CUPS IN THE AM ADVANCE DIRECTIVE ADVANCE DIRECTIVE DISCUSSED WITH PATIENT:YES HCP IS BROTHER- NELY SCHNEIDER [facility] [id number] OTHER NONE MARITAL STATUS: SINGLE. ALCOHOL SCREENING DID YOU HAVE A DRINK CONTAINING ALCOHOL IN THE PAST YEAR?YES HOW OFTEN DID YOU HAVE SIX OR MORE DRINKS ON ONE OCCASION IN THE PAST YEAR?NEVER (0 POINTS) HOW MANY DRINKS DID YOU HAVE ON A TYPICAL DAY WHEN YOU WERE DRINKING IN THE PAST YEAR?1 OR 2 (0 POINTS) HOW OFTEN DID YOU HAVE A DRINK CONTAINING ALCOHOL IN THE PAST YEAR?MONTHLY OR LESS (1 POINT) POINTS1 INTERPRETATIONNEGATIVE REVIEWED WITH PT 02/26/19 1015 BVREVIEWED WITH PATIENT 03/19/19 1033 NLJREVIEWED WITH PATIENT 04/16/19 1037 BVREVIEWED WITH PATIENT 06/23/19 1110 JS09/23/19 1325 REVIEWED WITH PT. AD. HOSPITALIZATION/MAJOR DIAGNOSTIC PROCEDURE PNEUMONIA 01/2015 R/O STROKE 10/2015 DEEP VEIN THROMBOSIS 1988 DVT WITH PULMONARY EMBOLISM 2009 REVIEW OF SYSTEMS REVIEWED BY: PROVIDER: ALDAIR BASSETT . CONSTITUTIONAL: ANY CHANGE IN YOUR MEDICAL CONDITION? NO . CHILLS NO . FEVER NO . INFECTION: DO YOU HAVE NEW INFECTIONS? NO . DO YOU HAVE HISTORY OF MRSA? NO . MUSCULOSKELETAL: ANY NEW PATTERNS OF PAIN OR NUMBNESS? NO . GASTROENTEROLOGY: ANY NEW CHANGE IN BOWEL CONTROL? NO . GENITOURINARY: ANY NEW CHANGE IN BLADDER CONTROL? NO . IS THERE A CHANCE YOU COULD BE ? NO . HEMATOLOGY/LYMPH: DO YOU TAKE ANY BLOOD THINNERS? (FOR EXAMPLE- COUMADIN, PLAVIX, AGGRENOX, PLATEL, PRADAXA, OR XARELTO) COUMADIN FOR DVT AND PE . WHEN WAS YOUR LAST DOSE? DATE: TIME: . NEUROLOGY: HAVE YOU FALLEN IN THE PAST 12 MONTHS? NO . ANY NEW EXTREMITY NUMBNESS OR WEAKNESS? NO . CARDIOLOGY: DO YOU HAVE A PACEMAKER OR DEFIBRILLATOR? NO . RESPIRATORY: HAVE YOU BEEN SICK IN THE PAST WEEK? NO . FEVER NO . FLU LIKE SYMPTOMS? NO . COUGH NO . INTEGUMENTARY: DO YOU HAVE ANY RASHES OR OPEN SORES? NO . ALLERGIC/IMMUNO: ARE YOU ALLERGIC TO IV DYE? NO . ANY NEW ALLERGIES? NO . PSYCHIATRIC: DO YOU HAVE THOUGHTS OF HURTING YOURSELF OR SOMEONE ELSE? NO . ARE YOU ABUSED, NEGLECTED, OR IN AN UNSAFE ENVIRONMENT? NO . ENDOCRINOLOGY: ARE YOU DIABETIC? YES . OTHER: DO YOU NEED ANY PRESCRIPTIONS? NO . IF YES, PLEASE LIST: ____ . ANY NEW PROBLEMS WITH YOUR MEDICATIONS? NO . WHEN DID YOU LAST EAT? ____ . WHEN DID YOU LAST DRINK? ____ . WHAT DID YOU LAST DRINK? ____ . NAME OF PERSON DRIVING YOU HOME? ____ . DO YOU HAVE ANY OTHER QUESTIONS OR CONCERNS NO . EXAMINATION GENERAL EXAMINATION: GENERALNO ACUTE DISTRESS, WELL NOURISHED AND HYDRATED. PSYCHAPPROPRIATE MOOD AND AFFECT , ORIENTED X 3. ASSESSMENTS RHEUMATOID ARTHRITIS INVOLVING MULTIPLE SITES WITH POSITIVE RHEUMATOID FACTOR - M05.79 (PRIMARY) TREATMENT RHEUMATOID ARTHRITIS INVOLVING MULTIPLE SITES WITH POSITIVE RHEUMATOID FACTOR CLINICAL NOTES: 63-YEAR-OLD FEMALE IN FOR CHRONIC PAIN FOLLOW-UP. GIVEN PRESENTING SYMPTOMS RECOMMEND CONTINUATION OF CURRENT MEDICATION REGIMEN WITH FOLLOW-UP IN 2 MONTHS. PATIENT HAS EXPRESSED UNDERSTANDING OF AND WAS IN AGREEMENT WITH TREATMENT PLAN. GIVEN TIME TO ASK QUESTIONS AND EXPRESS CONCERNS.TELEHEALTH VISIT PERFORMED VIA ZOOM. TIME SPENT WITH PATIENT 7 MINUTES. DISPOSITION & COMMUNICATION FOLLOW UP 2 MONTHS (REASON: RHEUMATOID ARTHRITIS) ELECTRONICALLY SIGNED BY HARI NERI ON 11/23/2019 AT 08:59 AM EDT DISCLAIMER : THIS IS A VISIT SUMMARY EXTRACTED FROM THE [employer] CHART. IT IS NOT A COPY OF THE [employer] PROGRESS NOTE. CURTIS
== END ==
LOC: M PAIN 11:45
PROVIDERS: ATTEND Family Medicine
DX: M05.79 Rheumatoid arthritis with rheumatoid factor of multiple sites without organ or systems involvement (principal); E11.9 Type 2 diabetes mellitus without complications; I10 Essential (primary) hypertension; E03.9 Hypothyroidism, unspecified; Z79.4 Long term (current) use of insulin; Z79.01 Long term (current) use of anticoagulants; Z79.899 Other long term (current) drug therapy; Z88.8 Allergy status to other drugs, medicaments and biological substances; Z87.891 Personal history of nicotine dependence

== ENCOUNTER → 2020-01-20 | Outpatient (CLI) | payer MEDICARE, OTHER ==
--- NOTE | 2020-01-25 04:39 | ECWPNPC ---
PATIENT NAME: CANDIS SCHNEIDER : 1955 GENDER: FEMALE VISIT DATE: 01/20/2020 DISCHARGE DATE: 01/20/20 1439 VISIT LOCKED DATE TIME: PHYSICIAN: JACKIE FOSTER RESOURCE: JACKIE FOSTER REASON FOR APPOINTMENT 1. RHEUMATOID ARTHRITIS; GEORGE@[employer] PAT DONE HISTORY OF PRESENT ILLNESS GENERAL: - PERMISSION REQUESTED AND RECEIVED FROM PATIENT TO PERFORM TELEHEALTH VISIT. 64-YEAR-OLD FEMALE IN FOR CHRONIC PAIN FOLLOW-UP. SHE RATES HER PAIN CURRENTLY AT A 7 OUT OF 10 AND DESCRIBES IT ACHING. PATIENT DOES FEEL THE GABAPENTIN IS HELPFUL. FALL RISK SCREENING: SCREENING :ONE FALL WITHOUT INJURY IN THE PAST YEAR PAIN SCREENING: PATIENT HAS A COMPLAINT OF ACUTE OR CHRONIC PAIN :YES LOCATION OF PAIN:HAND(S), LEG(S) BOTH INTENSITY OF PAIN (SCALE OF 1 TO 10):7 WHAT DOES YOUR PAIN FEEL LIKE:ACHING DURATION:CONTINOUS, CONSTANT, ALL DAY PAIN IS INCREASED BY:ACTIVITIES PAIN IS DECREASED BY: RELAX PAIN HAS INTERFERED WITH THE FOLLOWING:BATHING/DRESSING, HOUSEWORK, RELATIONSHIP WITH OTHERS, ENJOYMENT OF LIFE PLAN/GOALS/TREATMENT/INTERVENTION/FOLLOW UP:SEE PLAN NURSING NOTE: -. PAIN CENTER INTAKE QUESTIONS: DO YOU HAVE A HISTORY OF MRSA? :NO DO YOU TAKE A BLOOD THINNERS? :YES COUMADIN, 01/18/20 @6PM DO YOU HAVE ANY BLEEDING DISORDERS? :NO ANY NEW NUMBNESS OR WEAKNESS IN YOUR LEGS OR ARMS? :NO ANY PACEMAKER,DEFIBRILLATOR, OR DORSAL COLUMN STIMULATOR? :NO DO YOU HAVE ANY RASHES OR OPEN SORES? :NO ARE YOU ALLERGIC TO IV DYE? :NO ARE YOU DIABETIC? :YES ANY NEW PROBLEMS WITH YOUR MEDICATIONS? :NO HAVE YOU RECEIVED A VACCINE IN THE PAST 30 DAYS? :NO DO YOU PLAN TO RECEIVE A VACCINE IN THE NEXT 21 DAYS? :NO DO YOU NEED ANY PRESCRIPTION? :YES GABAPENTIN DO YOU TAKE ANY IMMUNOSUPPRESSIVE MEDICATIONS? :NO IS THERE A CHANCE YOU COULD BE ? :NO ARE YOU BREAST FEEDING? :NO CURRENT MEDICATIONS TAKING COUMADIN 2.5 MG TABLET ORALLY DIRECTED TAKING SPIRONOLACTONE 25 MG TABLET ORALLY TWICE A DAY TAKING BENAZEPRIL HCL 10 MG TABLET ORALLY DAILY TAKING SERTRALINE HCL 100 MG TABLET ORALLY DAILY TAKING TRILIPIX 135 MG CAPSULE DELAYED RELEASE ORALLY ONCE A DAY TAKING METFORMIN 1000 MG BID TAKING ZETIA 10 MG TABLET ORALLY ONCE A DAY TAKING LEVOTHROYXINE 137 MCG DAILY TAKING BACLOFEN 20 MG TABLET 1 TABLET WITH FOOD OR MILK ORALLY DAILY TAKING VITAMIN D 125 MCG (5000 UT) CAPSULE 1 CAPSULE ORALLY ONCE A DAY TAKING TOUJEO INSULIN INJECTION 300 ML , NOTES: 80 UNITS DAILY TAKING BYDUREON 2MG/VIAL ONCE WEEKLY TAKING ACTOS 15 MG TABLET 1 TABLET ORALLY ONCE A DAY TAKING JARDIANCE 25 MG TABLET 1 TABLET ORALLY ONCE A DAY TAKING CYMBALTA 30 MG CAPSULE DELAYED RELEASE PARTICLES ORALLY TWICE A DAY TAKING ALLOPURINOL 300 MG TABLET 1 CAP ORALLY DAILY TAKING HUMALOG 100 UNIT/ML SOLUTION DIRECTED SUBCUTANEOUS TAKING MIRAPEX 1 MG TABLET ORALLY BID TAKING RESTORIL 30 MG CAPSULE 1 CAPSULE AT BEDTIME NEEDED ORALLY ONCE A DAY, NOTES: FOR RESTLESS LEG SYNDROME TAKING MAY HAVE - - MEDICAL MARIJUANA DAILY NEEDED TAKING EXTRA STRENGTH ACETAMINOPHEN 500 MG CAPSULE 2 CAPS ORALLY EVERY 6 HRS NEEDED TAKING STOOL SOFTENER 100 MG CAPSULE 1 CAPSULE NEEDED ORALLY ONCE A DAY TAKING GABAPENTIN 300 MG CAPSULE 1 CAPSULE IN AM, AFTERNOON, AND 2 AT BEDTIME ORALLY TID NOT-TAKING KEVZARA 200 MG/1.14ML SOLUTION AUTO-INJECTOR 1.14 ML SUBCUTANEOUS , NOTES: ON HOLD OF 04/16/2018 MEDICATION LIST REVIEWED AND RECONCILED WITH THE PATIENT PAST MEDICAL HISTORY HYPERTENSION HYPERLIPIDEMIA TYPE 2 DIABETES RHEUMATHOID ARTHRITIS DEPRESSION AND ANXIETY RESTLESS LEG SYNDROME SLEEP APNEA FIBROMYALGIA GOUT HYPOTHYROID DVT LEFT UPPER LEG PULMONARY EMBOLISM ALLERGIES QUININE SULFATE: NAUSEA/VOMITING STATINS: EXACERBATES RESTLESS LEGS - SIDE EFFECTS SURGICAL HISTORY OPENED REDUCTION OF FRACTURED KNEE CAP- LEFT 07/1984 ARTHROSCOPY LEFT KNEE 08/1987 ARTHROSCOPY LEFT KNEE 08/1994 TOTAL KNEE REPLACEMENT-LEFT 10/2001 CHOLECYSTECTOMY 08/1979 PARATHYROIDECTOMY OF ONE GLAND 12/2012 APPENDECTOMY 04/2017 FAMILY HISTORY FATHER: , DIAGNOSED WITH HYPERTENSION MOTHER: , HYPERTENSION, UNSPECIFIED CEREBRAL ARTERY OCCLUSION WITH CEREBRAL INFARCTION, OTHER MALIGNANT NEOPLASM OF UNSPECIFIED SITE SIBLINGS: ALIVE, HYPERTENSION MATERNAL GRAND MOTHER: LUPUS- DIAGNOSED IN 70'S 3 BROTHER(S) . PATERNAL GRANDMOTHER DEMENTIA, BROTHERS HAVE HTN, MOTHER HAD MULTIPLE MYLOMA. SOCIAL HISTORY GENERAL: TOBACCO USE ARE YOU A:FORMER SMOKER HOW LONG HAS IT BEEN SINCE YOU LAST SMOKED?> 10 YEARS LATEX QUESTIONNAIRE LATEX ALLERGY : HAVE YOU EVER DEVELOPED ANY TYPE OF REACTION AFTER HANDLING LATEX PRODUCTS SUCH RUBBER GLOVES, CONDOMS, DIAPHRAGMS, BALLOONS, SOCKS, OR UNDERWEAR?NO LATEX ALLERGY : HAVE YOU EVER DEVELOPED ANY TYPE OF REACTION DURING OR AFTER DENTAL APPOINTMENT, VAGINAL/RECTAL EXAMINATION, SURGICAL PROCEDURE, OR ANY OTHER EXPOSURE?NO LATEX RISK : HAVE YOU EVER HAD ANY DIFFICULTY BREATHING OR HIVES AFTER EATING OR HANDLING ANY FRUITS, OR VEGETABLES; SUCH KIWI, BANANAS, STONE FRUITS, OR CHESTNUTSNO LATEX RISK : DO YOU HAVE A PREVIOUS PERSONAL HISTORY OF MORE THAN NINE SURGERIES, SPINA BIFIDA, OR REPEATED CATHERIZATIONS? NO LATEX RISK : ARE YOU FREQUENTLY EXPOSED TO LATEX PRODUCTS IN YOUR OCCUPATION?NO DATE ASKED : 09/23/2019 ALCOHOL SCREENING DID YOU HAVE A DRINK CONTAINING ALCOHOL IN THE PAST YEAR?YES HOW OFTEN DID YOU HAVE SIX OR MORE DRINKS ON ONE OCCASION IN THE PAST YEAR?NEVER (0 POINTS) HOW MANY DRINKS DID YOU HAVE ON A TYPICAL DAY WHEN YOU WERE DRINKING IN THE PAST YEAR?1 OR 2 (0 POINTS) HOW OFTEN DID YOU HAVE A DRINK CONTAINING ALCOHOL IN THE PAST YEAR?MONTHLY OR LESS (1 POINT) POINTS1 INTERPRETATIONNEGATIVE RECREATIONAL DRUG USE DRUG USE?NO CAFFEINE CAFFEINE USE?YES HOW OFTEN AND HOW MUCH? 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 EXERCISE: WALKS. MARITAL STATUS: SINGLE. OTHERS AT HOME: NONE. NEW PATIENT PAIN DIARY PATIENT DESCRIBES PAIN :ACHING, HAVE IT ALL THE TIME FROM 0-10, WHAT LEVEL IS YOUR PAIN TODAY?6 PRECIPITATING FACTORS ACTIVITY, BAROMETRIC PRESSURE ALLEVIATING FACTORS HEAT IMPACT ON FUNCTION YES PAIN CLINIC PFS, CLERGY, PUBLIC HEALTH REFERRALS HAS THE PATIENT BEEN EDUCATED REGARDING HIS/HER PLAN OF CARE?YES HAS THE PATIENT BEEN EDUCATED REGARDING PAIN, THE RISK FOR PAIN, THE IMPORTANCE OF EFFECTIVE PAIN MANAGEMENT, AND THE PAIN ASSESSMENT PROCESS?YES HOUSING: OWNS HOME. ADVANCE DIRECTIVE ADVANCE DIRECTIVE DISCUSSED WITH PATIENT:YES HCP IS BROTHER- NELY CARBALLOELD REVIEWED WITH PT 02/26/19 1015 BVREVIEWED WITH PATIENT 03/19/19 1033 NLJREVIEWED WITH PATIENT 04/16/19 1037 BVREVIEWED WITH PATIENT 06/23/19 1110 09/23/19 1325 REVIEWED WITH PT. AD. HOSPITALIZATION/MAJOR DIAGNOSTIC PROCEDURE PNEUMONIA 01/2015 R/O STROKE 10/2015 DEEP VEIN THROMBOSIS 1988 DVT WITH PULMONARY EMBOLISM 2009 REVIEW OF SYSTEMS CONSTITUTIONAL: ANY RECENT FEVER OR ILLNESS NO . CHILLS NO . GASTROENTEROLOGY: BOWEL INCONTINENCE NO . ANY NEW CHANGE IN BOWEL CONTROL? NO . ABDOMINAL PAIN NO . CONSTIPATION NO . GENITOURINARY: ANY NEW CHANGE IN BLADDER CONTROL? NO . URINARY INCONTINENCE NO . CARDIOLOGY: CHEST PRESSURE NO . CHEST PAIN NO . RESPIRATORY: COUGH NO . SHORTNESS OF BREATH NO . EXAMINATION GENERAL EXAMINATION: GENERALNO ACUTE DISTRESS, WELL NOURISHED AND HYDRATED. PSYCHAPPROPRIATE MOOD AND AFFECT , ORIENTED X 3. ASSESSMENTS RHEUMATOID ARTHRITIS INVOLVING MULTIPLE SITES WITH POSITIVE RHEUMATOID FACTOR - M05.79 (PRIMARY) TREATMENT RHEUMATOID ARTHRITIS INVOLVING MULTIPLE SITES WITH POSITIVE RHEUMATOID FACTOR CLINICAL NOTES: 64-YEAR-OLD FEMALE IN FOR CHRONIC PAIN FOLLOW-UP. GIVEN PRESENTING SYMPTOMS RECOMMEND CONTINUATION OF CURRENT MEDICATION REGIMEN WITH FOLLOW-UP IN 2 MONTHS. ENCOURAGED PATIENT TO DISCUSS INCREASING CYMBALTA WITH HER PCP AT HER NEXT FOLLOW-UP. PATIENT HAS EXPRESSED UNDERSTANDING OF AND WAS IN AGREEMENT WITH TREATMENT PLAN. GIVEN TIME TO ASK QUESTIONS AND EXPRESS CONCERNS. TELEHEALTH VISIT CONDUCTED VIA ZOOM. TIME SPENT WITH PATIENT 10 MINUTES. OTHERS NOTES: VITALS NOT OBTAINED DUE TO VIRTUAL VISIT, PRE-SCREENING COMPLETED, 01/19/20, NA. DISPOSITION & COMMUNICATION FOLLOW UP 2 MONTHS (REASON: RA) ELECTRONICALLY SIGNED BY HARI NERI ON 01/24/2020 AT 08:44 AM EDT DISCLAIMER : THIS IS A VISIT SUMMARY EXTRACTED FROM THE [employer] CHART. IT IS NOT A COPY OF THE [employer] PROGRESS NOTE. ENZOD
== END ==
LOC: M PAIN 14:30
PROVIDERS: ATTEND Family Medicine
DX: M05.79 Rheumatoid arthritis with rheumatoid factor of multiple sites without organ or systems involvement (principal)

== ENCOUNTER 2020-02-18 19:44 | Emergency (ER) | payer MEDICARE, OTHER ==
[~2020-02-18] VITALS: Ht 165.1 cm; Wt 129.1 kg
[2020-02-18] MEDS ORDERED: DULO30CA9 PO (20:07)
[2020-02-18] MEDS ORDERED: GABA-843 PO (20:12)
[2020-02-18] MEDS ORDERED: JARD1TAB PO (20:12)
[2020-02-18] MEDS ORDERED: ALLO100T PO (20:12)
[2020-02-18] MEDS ORDERED: BYDU1INJ SC (20:24)
[2020-02-18] MEDS ORDERED: GABA600T4 PO (20:24)
[2020-02-18] MEDS ORDERED: HUMA100I5 SC ×2 (20:24)
[2020-02-18] MEDS ORDERED: SERT-138 PO (20:24)
[2020-02-18] MEDS ORDERED: WARF-18 PO (20:24)
[2020-02-18] MEDS ORDERED: LIDO5DIS41 TOP (20:43)
[2020-02-18] MEDS ORDERED: SOMA350T PO (20:43)
[2020-02-18] MEDS ORDERED: **NOTE PATIENT COMMENT** MISC XX SCH (21:00)
[2020-02-18] MEDS ORDERED: LIDOCAINE 5% (LIDODERM) PATCH TD ONE (21:00)
[2020-02-18 21:19] VITALS: BP 118/55
== END 2020-02-18 21:21 | disposition home or self-care (01) ==
LOC: M ED 19:44 → EDBD 19:44 → M ED 21:21
DX: M54.9 Dorsalgia, unspecified (principal); E11.9 Type 2 diabetes mellitus without complications; I11.9 Hypertensive heart disease without heart failure; Z79.1 Long term (current) use of non-steroidal anti-inflammatories (NSAID); Z79.4 Long term (current) use of insulin; Z79.891 Long term (current) use of opiate analgesic; Z79.899 Other long term (current) drug therapy; Z87.891 Personal history of nicotine dependence; Z88.8 Allergy status to other drugs, medicaments and biological substances

== ENCOUNTER → 2020-02-29 | Outpatient (REF) | payer MEDICARE, OTHER ==
[~2020-02-29] MED LIST changes: +ALLO100T PO; +BYDU1INJ SC; +DULO30CA9 PO; +GABA-843 PO; +HUMA100I5 SC; +JARD1TAB PO; +LIDO5DIS41 TOP; +SERT-138 PO; +SOMA350T PO
[2020-02-29 16:02] LABS: CREATININE, URINE 48.3 MG/DL; MALB URINE SIEMENS 5.9 MG/L; MAU/CREAT RATIO 12.2 MCG/MG (0.0-30.0)
== END ==
LOC: M LAB REF 15:08
PROVIDERS: ATTEND Nurse Practitioner Family
DX: E11.65 Type 2 diabetes mellitus with hyperglycemia (principal)

== ENCOUNTER → 2020-03-21 | Outpatient (CLI) | payer MEDICARE, OTHER | LOC: M PAIN 09:45 | PROVIDERS: ATTEND Family Medicine | DX: M05.79 Rheumatoid arthritis with rheumatoid factor of multiple sites without organ or systems involvement (principal) ==

== ENCOUNTER → 2020-06-22 | Outpatient (CLI) | payer MEDICARE, OTHER ==
--- NOTE | 2020-06-24 07:01 | ECWPNPC ---
PATIENT NAME: CANDIS SCHNEIDER : 1955 GENDER: FEMALE VISIT DATE: 06/22/2020 DISCHARGE DATE: 06/22/20 1417 VISIT LOCKED DATE TIME: PHYSICIAN: JACKIE FOSTER RESOURCE: JACKIE FOSTER REASON FOR APPOINTMENT 1. RA HISTORY OF PRESENT ILLNESS GENERAL: - 64-YEAR-OLD FEMALE IN FOR CHRONIC PAIN FOLLOW-UP. SHE RATES HER PAIN CURRENTLY AT A 7 OUT OF 10 AND DESCRIBES IT ACHING, CONTINUOUS, AND STABBING. PATIENT FEELS HER GABAPENTIN IS HELPFUL AND DENIES MED SIDE EFFECTS AT THIS TIME. FALL RISK SCREENING: SCREENING :NO FALLS REPORTED IN THE LAST YEAR PAIN SCREENING: PATIENT HAS A COMPLAINT OF ACUTE OR CHRONIC PAIN :YES LOCATION OF PAIN:OTHER: BILATERAL HANDS AND GENERALIZED, RIGHT FOOT HAS FRACTURE OF 5TH METATARSAL INTENSITY OF PAIN (SCALE OF 1 TO 10):7 WHAT DOES YOUR PAIN FEEL LIKE:ACHING, CONTINOUS, STABBING DURATION:CONTINOUS PAIN IS INCREASED BY:ACTIVITIES WEATHER PAIN IS DECREASED BY:OTHERS HEAT, CHANGE IN POSITION NURSING NOTE: -. PAIN CENTER INTAKE QUESTIONS: DO YOU HAVE A HISTORY OF MRSA? :NO DO YOU TAKE A BLOOD THINNERS? :YES COUMADIN DAILY DO YOU HAVE ANY BLEEDING DISORDERS? :NO ANY NEW NUMBNESS OR WEAKNESS IN YOUR LEGS OR ARMS? :NO ANY PACEMAKER,DEFIBRILLATOR, OR DORSAL COLUMN STIMULATOR? :NO DO YOU HAVE ANY RASHES OR OPEN SORES? :NO ARE YOU ALLERGIC TO IV DYE? :NO ARE YOU DIABETIC? :YES ANY NEW PROBLEMS WITH YOUR MEDICATIONS? :NO HAVE YOU RECEIVED A VACCINE IN THE PAST 30 DAYS? :YES IF SO WHAT VACCINE AND WHEN? FLU SHOT MAY 2020 DO YOU PLAN TO RECEIVE A VACCINE IN THE NEXT 21 DAYS? :NO DO YOU NEED ANY PRESCRIPTION? :NO DO YOU TAKE ANY IMMUNOSUPPRESSIVE MEDICATIONS? :NO ANY HISTORY OF SEIZURES? :NO ANY HISTORY OF CARDIAC ISSUES OR EVENTS? :YES HISTORY OF DVT AND PE DO YOU HAVE SLEEP APNEA? :YES DO YOU WEAR A CPAP?YES ANY RECENT HEAD INJURY? :NO DO YOU HAVE ANY NEW INFECTIONS? :NO IS THERE A CHANCE YOU COULD BE ? :NO ARE YOU BREAST FEEDING? :NO CURRENT MEDICATIONS TAKING COUMADIN 2.5 MG TABLET ORALLY DIRECTED TAKING SPIRONOLACTONE 25 MG TABLET ORALLY TWICE A DAY TAKING BENAZEPRIL HCL 10 MG TABLET ORALLY DAILY TAKING TRILIPIX 135 MG CAPSULE DELAYED RELEASE ORALLY ONCE A DAY TAKING METFORMIN 1000 MG BID TAKING ZETIA 10 MG TABLET ORALLY ONCE A DAY TAKING LEVOTHROYXINE 137 MCG DAILY TAKING BACLOFEN 20 MG TABLET 1 TABLET WITH FOOD OR MILK ORALLY DAILY TAKING VITAMIN D 125 MCG (5000 UT) CAPSULE 1 CAPSULE ORALLY ONCE A DAY TAKING TOUJEO INSULIN INJECTION 300 ML , NOTES: 80 UNITS DAILY TAKING BYDUREON 2MG/VIAL ONCE WEEKLY TAKING ACTOS 15 MG TABLET 1 TABLET ORALLY ONCE A DAY TAKING JARDIANCE 25 MG TABLET 1 TABLET ORALLY ONCE A DAY TAKING CYMBALTA 30 MG CAPSULE DELAYED RELEASE PARTICLES ORALLY TWICE A DAY TAKING ALLOPURINOL 300 MG TABLET 1 CAP ORALLY DAILY TAKING HUMALOG 100 UNIT/ML SOLUTION DIRECTED SUBCUTANEOUS TAKING MIRAPEX 1 MG TABLET ORALLY BID TAKING RESTORIL 30 MG CAPSULE 1 CAPSULE AT BEDTIME NEEDED ORALLY ONCE A DAY, NOTES: FOR RESTLESS LEG SYNDROME TAKING EXTRA STRENGTH ACETAMINOPHEN 500 MG CAPSULE 2 CAPS ORALLY EVERY 6 HRS NEEDED TAKING STOOL SOFTENER 100 MG CAPSULE 1 CAPSULE NEEDED ORALLY ONCE A DAY TAKING GABAPENTIN 300 MG CAPSULE 1 CAPSULE IN AM, AFTERNOON, AND 2 AT BEDTIME ORALLY TID TAKING QUETIAPINE FUMARATE 50 MG TABLET 1 TABLET AT BEDTIME ORALLY ONCE A DAY NOT-TAKING SERTRALINE HCL 100 MG TABLET ORALLY DAILY NOT-TAKING MAY HAVE - - MEDICAL MARIJUANA DAILY NEEDED, NOTES: DISRUPTED PT/INR NOT-TAKING KEVZARA 200 MG/1.14ML SOLUTION AUTO-INJECTOR 1.14 ML SUBCUTANEOUS , NOTES: ON HOLD OF 04/16/2018 MEDICATION LIST REVIEWED AND RECONCILED WITH THE PATIENT PAST MEDICAL HISTORY HYPERTENSION HYPERLIPIDEMIA TYPE 2 DIABETES RHEUMATHOID ARTHRITIS DEPRESSION AND ANXIETY RESTLESS LEG SYNDROME SLEEP APNEA FIBROMYALGIA GOUT HYPOTHYROID DVT LEFT UPPER LEG PULMONARY EMBOLISM BILATERAL CARPAL TUNNEL ALLERGIES QUININE SULFATE: NAUSEA/VOMITING STATINS: EXACERBATES RESTLESS LEGS - SIDE EFFECTS SURGICAL HISTORY OPENED REDUCTION OF FRACTURED KNEE CAP- LEFT 07/1984 ARTHROSCOPY LEFT KNEE 08/1987 ARTHROSCOPY LEFT KNEE 08/1994 TOTAL KNEE REPLACEMENT-LEFT 10/2001 CHOLECYSTECTOMY 08/1979 PARATHYROIDECTOMY OF ONE GLAND 12/2012 APPENDECTOMY 04/2017 FAMILY HISTORY FATHER: , DIAGNOSED WITH HYPERTENSION MOTHER: , HYPERTENSION, UNSPECIFIED CEREBRAL ARTERY OCCLUSION WITH CEREBRAL INFARCTION, OTHER MALIGNANT NEOPLASM OF UNSPECIFIED SITE SIBLINGS: ALIVE, HYPERTENSION MATERNAL GRAND MOTHER: LUPUS- DIAGNOSED IN 70'S 3 BROTHER(S) . PATERNAL GRANDMOTHER DEMENTIA, BROTHERS HAVE HTN, MOTHER HAD MULTIPLE MYLOMA. SOCIAL HISTORY GENERAL: TOBACCO USE ARE YOU A:FORMER SMOKER HOW LONG HAS IT BEEN SINCE YOU LAST SMOKED?> 10 YEARS LATEX QUESTIONNAIRE LATEX ALLERGY : HAVE YOU EVER DEVELOPED ANY TYPE OF REACTION AFTER HANDLING LATEX PRODUCTS SUCH RUBBER GLOVES, CONDOMS, DIAPHRAGMS, BALLOONS, SOCKS, OR UNDERWEAR?NO LATEX ALLERGY : HAVE YOU EVER DEVELOPED ANY TYPE OF REACTION DURING OR AFTER DENTAL APPOINTMENT, VAGINAL/RECTAL EXAMINATION, SURGICAL PROCEDURE, OR ANY OTHER EXPOSURE?NO LATEX RISK : HAVE YOU EVER HAD ANY DIFFICULTY BREATHING OR HIVES AFTER EATING OR HANDLING ANY FRUITS, OR VEGETABLES; SUCH KIWI, BANANAS, STONE FRUITS, OR CHESTNUTSNO LATEX RISK : DO YOU HAVE A PREVIOUS PERSONAL HISTORY OF MORE THAN NINE SURGERIES, SPINA BIFIDA, OR REPEATED CATHERIZATIONS? NO LATEX RISK : ARE YOU FREQUENTLY EXPOSED TO LATEX PRODUCTS IN YOUR OCCUPATION?NO DATE ASKED : 06/22/2020 ALCOHOL SCREENING DID YOU HAVE A DRINK CONTAINING ALCOHOL IN THE PAST YEAR?YES HOW OFTEN DID YOU HAVE SIX OR MORE DRINKS ON ONE OCCASION IN THE PAST YEAR?NEVER (0 POINTS) HOW MANY DRINKS DID YOU HAVE ON A TYPICAL DAY WHEN YOU WERE DRINKING IN THE PAST YEAR?1 OR 2 (0 POINTS) HOW OFTEN DID YOU HAVE A DRINK CONTAINING ALCOHOL IN THE PAST YEAR?MONTHLY OR LESS (1 POINT) POINTS1 INTERPRETATIONNEGATIVE RECREATIONAL DRUG USE DRUG USE?NO CAFFEINE CAFFEINE USE?YES HOW OFTEN AND HOW MUCH? 2 CUPS IN THE AM ORTHODOX [id number] OTHER NONE LANGUAGE LANGUAGES SPOKEN:ERITREAN EDUCATION LEVEL OF EDUCATION:COLLEGE LEARNING BARRIERS / SPECIAL NEEDS BARRIERS TO LEARNING?NO HEARING IMPAIRED?NO VISION IMPAIRED?YES COGNITIVELY IMPAIRED?NO :CORRECTIVE LENSES READINESS TO LEARN?YES LEARNING PREFERENCES?YES :DEMONSTRATION/VERBAL INSTRUCTION LEARNING CAPABILITIES PRESENT?YES EMOTIONAL BARRIERS?NO SPECIAL DEVICES?YES :CANE OBGYN SPECIALIST NEEDED?NO DOMESTIC VIOLENCE DO YOU FEEL SAFE IN YOUR ENVIRONMENT?YES DIET: REGULAR, CARBOHYDRATE CONTROLLED. EXERCISE: WALKS. MARITAL STATUS: SINGLE. OTHERS AT HOME: NONE. PAIN CLINIC PFS, CLERGY, PUBLIC HEALTH REFERRALS HAS THE PATIENT BEEN EDUCATED REGARDING HIS/HER PLAN OF CARE?YES HAS THE PATIENT BEEN EDUCATED REGARDING PAIN, THE RISK FOR PAIN, THE IMPORTANCE OF EFFECTIVE PAIN MANAGEMENT, AND THE PAIN ASSESSMENT PROCESS?YES HOUSING: OWNS HOME. ADVANCE DIRECTIVE ADVANCE DIRECTIVE DISCUSSED WITH PATIENT:YES HCP IS [facility]- NELY WYATT REVIEWED WITH PT 02/26/19 1015 BVREVIEWED WITH PATIENT 03/19/19 1033 NLJREVIEWED WITH PATIENT 04/16/19 1037 BVREVIEWED WITH PATIENT 06/23/19 1110 09/23/19 1325 REVIEWED WITH PT. AD. HOSPITALIZATION/MAJOR DIAGNOSTIC PROCEDURE PNEUMONIA 01/2015 R/O STROKE 10/2015 DEEP VEIN THROMBOSIS 1988 DVT WITH PULMONARY EMBOLISM 2009 REVIEW OF SYSTEMS CONSTITUTIONAL: ANY RECENT FEVER NO . CHILLS NO . WEIGHT CHANGE OF UNKNOWN REASONS NO . GASTROENTEROLOGY: NEW UNEXPLAINABLE CHANGES IN BOWEL CONTROL NO . CONSTIPATION NO . GENITOURINARY: ANY NEW CHANGE IN BLADDER CONTROL? NO . NEUROLOGY: NEW ONSET DIZZINESS OR NEUROLOGICAL CHANGES NOT MENTIONED NO . NEW NUMBNESS OR PAIN PATTERNS NOT MENTIONED AND PERTINENT TO TODAY'S VISIT NO . CARDIOLOGY: NEW CHEST PRESSURE NO . NEW CHEST PAIN NO . RESPIRATORY: UNEXPLAINABLE COUGH NO . NEW SHORTNESS OF BREATH NO . VITAL SIGNS WT 292 LBS, HT 5'4", BMI 50.12 INDEX, BP 127/62 MM HG, HR 86 /MIN, RR 19 /MIN, TEMP 96.2 F, OXYGEN SAT % 96%, SAFE IN ENV? (Y/N) YES, NA INITIALS MD 13:28, REVIEWED BY: LIBRA ALCALA RN. EXAMINATION GENERAL EXAMINATION: GENERALNO ACUTE DISTRESS, WELL NOURISHED AND HYDRATED. PSYCHAPPROPRIATE MOOD AND AFFECT . LUNGS:CLEAR TO AUSCULTATION BILATERALLY, NO WHEEZES, RHONCHI, RALES. HEART:NO MURMURS, REGULAR RATE AND RHYTHM. ASSESSMENTS RHEUMATOID ARTHRITIS INVOLVING MULTIPLE SITES WITH POSITIVE RHEUMATOID FACTOR - M05.79 (PRIMARY) TREATMENT RHEUMATOID ARTHRITIS INVOLVING MULTIPLE SITES WITH POSITIVE RHEUMATOID FACTOR NOTES: 64-YEAR-OLD FEMALE IN FOR CHRONIC PAIN FOLLOW-UP. GIVEN PRESENTING SYMPTOMS RECOMMENDED CONTINUATION OF CURRENT MEDICATION REGIMEN WITH FOLLOW-UP IN 3 MONTHS. PATIENT HAS EXPRESSED UNDERSTANDING OF AND WAS IN AGREEMENT WITH TREATMENT PLAN. GIVEN TIME TO ASK QUESTIONS AND EXPRESS CONCERNS. PROCEDURE CODES FA211 ESTABILISHED PATIENT [facility] FAC[facility] CHARGE DISPOSITION & COMMUNICATION FOLLOW UP 3 MONTHS (REASON: RHEUMATOID ARTHRITIS) ELECTRONICALLY SIGNED BY HARI NERI ON 06/23/2020 AT 08:56 AM EST DISCLAIMER : THIS IS A VISIT SUMMARY EXTRACTED FROM THE [employer] CHART. IT IS NOT A COPY OF THE [employer] PROGRESS NOTE. MTDD
== END ==
LOC: M PAIN 13:30
PROVIDERS: ATTEND Family Medicine
DX: M05.79 Rheumatoid arthritis with rheumatoid factor of multiple sites without organ or systems involvement (principal); G89.29 Other chronic pain; E11.9 Type 2 diabetes mellitus without complications; G47.30 Sleep apnea, unspecified; I10 Essential (primary) hypertension; E78.5 Hyperlipidemia, unspecified; G25.81 Restless legs syndrome; M79.7 Fibromyalgia; E03.9 Hypothyroidism, unspecified; Z86.711 Personal history of pulmonary embolism; Z86.718 Personal history of other venous thrombosis and embolism; Z86.59 Personal history of other mental and behavioral disorders; Z96.652 Presence of left artificial knee joint; Z87.891 Personal history of nicotine dependence; Z88.8 Allergy status to other drugs, medicaments and biological substances; E66.01 Morbid (severe) obesity due to excess calories; Z68.43 Body mass index [BMI] 50.0-59.9, adult; Z79.01 Long term (current) use of anticoagulants; Z79.4 Long term (current) use of insulin; Z79.899 Other long term (current) drug therapy

== ENCOUNTER → 2020-08-29 | Outpatient (CLI) | payer MEDICARE, OTHER ==
[~2020-08-29] MED LIST changes: +GABA-282 PO; -GABA-843 PO
--- NOTE | 2020-08-31 00:40 | ECWPNPC ---
PATIENT NAME: CANDIS SCHNEIDER : 1955 GENDER: FEMALE VISIT DATE: 08/29/2020 DISCHARGE DATE: 08/29/20 1123 VISIT LOCKED DATE TIME: PHYSICIAN: JACKIE FOSTER RESOURCE: JACKIE FOSTER REASON FOR APPOINTMENT 1. RHEUMATOID ARTHRITIS HISTORY OF PRESENT ILLNESS DEPRESSION SCREENING: PHQ-9 LITTLE INTEREST OR PLEASURE IN DOING THINGSSEVERAL DAYS FEELING DOWN, DEPRESSED, OR HOPELESSNEARLY EVERY DAY TROUBLE FALLING OR STAYING ASLEEP, OR SLEEPING TOO MUCHNOT AT ALL FEELING TIRED OR HAVING LITTLE ENERGYNEARLY EVERY DAY POOR APPETITE OR OVEREATING NEARLY EVERY DAY FEELING BAD ABOUT YOURSELF-OR THAT YOU ARE A FAILURE OR HAVE LET YOURSELF OR YOUR FAMILY DOWN NOT AT ALL TROUBLE CONCENTRATING ON THINGS, SUCH READING THE NEWSPAPER OR WATCHING TELEVISION SEVERAL DAYS MOVING OR SPEAKING SO SLOWLY THAT OTHER PEOPLE COULD HAVE NOTICED. OR THE OPPOSITE- BEING SO FIDGETY OR RESTLESS THAT YOU HAVE BEEN MOVING AROUND A LOT MORE THAN USUALSEVERAL DAYS THOUGHTS THAT YOU WOULD BE BETTER OFF , OR OF HURTING YOURSELF IN SOME WAY?NOT AT ALL TOTAL SCORE:12 INTERPRETATIONMODERATE DEPRESSION PHQ-2 (2015 EDITION) LITTLE INTEREST OR PLEASURE IN DOING THINGS?SEVERAL DAYS FEELING DOWN, DEPRESSED, OR HOPELESS?NEARLY EVERY DAY TOTAL SCORE4 64-YEAR-OLD FEMALE IN FOR CHRONIC PAIN FOLLOW-UP. SHE RATES HER PAIN CURRENTLY AT A 7 OUT OF 10 AND DESCRIBES IT ACHING, AND A GRIPPING PAIN. SHE FEELS HER MEDICATIONS ARE HELPFUL AND DENIES MED SIDE EFFECTS AT THIS TIME. SHE DOES ADMIT TO EXACERBATIONS OF PAIN CURRENTLY RELATED TO THE WEATHER. GENERAL: -. FALL RISK SCREENING: SCREENING :ONE FALL WITHOUT INJURY IN THE PAST YEAR DID NOT SEEK MEDICAL TREATMENT PAIN SCREENING: PATIENT HAS A COMPLAINT OF ACUTE OR CHRONIC PAIN :YES LOCATION OF PAIN:RIGHT HIP, KNEES, OTHER: RIGHT KNEE, RIGHT HIP, BILATERAL HANDS, GENERALIZED ACHE INTENSITY OF PAIN (SCALE OF 1 TO 10):7 WHAT DOES YOUR PAIN FEEL LIKE:ACHING, OTHER GRIPPING PAIN DURATION:CONTINOUS, CONSTANT, ALL DAY PAIN IS INCREASED BY:ACTIVITIES SUDDEN MOVEMENT PAIN IS DECREASED BY:USE OF PAIN MEDICATIONS PATIENT STATES "GABAPENTIN HELPS RESTLESS LEGS, CYMBALTA HAS HELPED IN THE PAST." TREATMENT/MEDICATIONS USED TO MANAGE PAIN:OTC PAIN RELIEVERS TYLENOL HELPS RELIEVE THE EDGE. NURSING NOTE: -. PAIN CENTER INTAKE QUESTIONS: DO YOU HAVE A HISTORY OF MRSA? :NO DO YOU TAKE A BLOOD THINNERS? :YES COUMADIN DO YOU HAVE ANY BLEEDING DISORDERS? :NO ANY NEW NUMBNESS OR WEAKNESS IN YOUR LEGS OR ARMS? :NO ANY PACEMAKER,DEFIBRILLATOR, OR DORSAL COLUMN STIMULATOR? :NO DO YOU HAVE ANY RASHES OR OPEN SORES? :NO ARE YOU ALLERGIC TO IV DYE? :NO ARE YOU DIABETIC? :YES ANY NEW PROBLEMS WITH YOUR MEDICATIONS? :NO HAVE YOU RECEIVED A VACCINE IN THE PAST 30 DAYS? :NO DO YOU PLAN TO RECEIVE A VACCINE IN THE NEXT 21 DAYS? :YES WOULD LIKE THE COVID VACCINATION WHEN AVAILABLE. DO YOU NEED ANY PRESCRIPTION? :NO DO YOU TAKE ANY IMMUNOSUPPRESSIVE MEDICATIONS? :NO ANY HISTORY OF SEIZURES? :NO ANY HISTORY OF CARDIAC ISSUES OR EVENTS? :YES HISTORY OF DVT AND PE DO YOU HAVE SLEEP APNEA? :YES DO YOU WEAR A CPAP?YES ANY RECENT HEAD INJURY? :NO DO YOU HAVE ANY NEW INFECTIONS? :NO IS THERE A CHANCE YOU COULD BE ? :NO ARE YOU BREAST FEEDING? :NO CURRENT MEDICATIONS TAKING COUMADIN 2.5 MG TABLET ORALLY DIRECTED TAKING SPIRONOLACTONE 25 MG TABLET ORALLY TWICE A DAY TAKING BENAZEPRIL HCL 10 MG TABLET ORALLY DAILY TAKING TRILIPIX 135 MG CAPSULE DELAYED RELEASE ORALLY ONCE A DAY TAKING METFORMIN 1000 MG BID TAKING ZETIA 10 MG TABLET ORALLY ONCE A DAY TAKING LEVOTHROYXINE 137 MCG DAILY TAKING BACLOFEN 20 MG TABLET 1 TABLET WITH FOOD OR MILK ORALLY DAILY TAKING VITAMIN D 125 MCG (5000 UT) CAPSULE 1 CAPSULE ORALLY ONCE A DAY TAKING TOUJEO INSULIN INJECTION 300 ML , NOTES: 80 UNITS DAILY TAKING BYDUREON 2MG/VIAL ONCE WEEKLY TAKING ACTOS 15 MG TABLET 1 TABLET ORALLY ONCE A DAY TAKING JARDIANCE 25 MG TABLET 1 TABLET ORALLY ONCE A DAY TAKING CYMBALTA 30 MG CAPSULE DELAYED RELEASE PARTICLES ORALLY THREE TIMES DAILY TAKING ALLOPURINOL 300 MG TABLET 1 CAP ORALLY DAILY TAKING HUMALOG 100 UNIT/ML SOLUTION DIRECTED SUBCUTANEOUS TAKING MIRAPEX 1 MG TABLET ORALLY BID TAKING RESTORIL 30 MG CAPSULE 1 CAPSULE AT BEDTIME NEEDED ORALLY ONCE A DAY, NOTES: FOR RESTLESS LEG SYNDROME TAKING EXTRA STRENGTH ACETAMINOPHEN 500 MG CAPSULE 2 CAPS ORALLY EVERY 6 HRS NEEDED TAKING STOOL SOFTENER 100 MG CAPSULE 1 CAPSULE NEEDED ORALLY ONCE A DAY TAKING QUETIAPINE FUMARATE 50 MG TABLET 1 TABLET AT BEDTIME ORALLY ONCE A DAY TAKING GABAPENTIN 300 MG CAPSULE 1 CAPSULE IN AM, AFTERNOON, AND 2 AT BEDTIME ORALLY TID NOT-TAKING SERTRALINE HCL 100 MG TABLET ORALLY DAILY NOT-TAKING MAY HAVE - - MEDICAL MARIJUANA DAILY NEEDED, NOTES: DISRUPTED PT/INR NOT-TAKING KEVZARA 200 MG/1.14ML SOLUTION AUTO-INJECTOR 1.14 ML SUBCUTANEOUS , NOTES: ON HOLD OF 04/16/2018 MEDICATION LIST REVIEWED AND RECONCILED WITH THE PATIENT PAST MEDICAL HISTORY HYPERTENSION HYPERLIPIDEMIA TYPE 2 DIABETES RHEUMATHOID ARTHRITIS DEPRESSION AND ANXIETY RESTLESS LEG SYNDROME SLEEP APNEA FIBROMYALGIA GOUT HYPOTHYROID DVT LEFT UPPER LEG PULMONARY EMBOLISM BILATERAL CARPAL TUNNEL ALLERGIES QUININE SULFATE: NAUSEA/VOMITING STATINS: EXACERBATES RESTLESS LEGS - SIDE EFFECTS SOCIAL HISTORY GENERAL: TOBACCO USE ARE YOU A:FORMER SMOKER HOW LONG HAS IT BEEN SINCE YOU LAST SMOKED?> 10 YEARS LATEX QUESTIONNAIRE LATEX ALLERGY : HAVE YOU EVER DEVELOPED ANY TYPE OF REACTION AFTER HANDLING LATEX PRODUCTS SUCH RUBBER GLOVES, CONDOMS, DIAPHRAGMS, BALLOONS, SOCKS, OR UNDERWEAR?NO LATEX ALLERGY : HAVE YOU EVER DEVELOPED ANY TYPE OF REACTION DURING OR AFTER DENTAL APPOINTMENT, VAGINAL/RECTAL EXAMINATION, SURGICAL PROCEDURE, OR ANY OTHER EXPOSURE?NO LATEX RISK : HAVE YOU EVER HAD ANY DIFFICULTY BREATHING OR HIVES AFTER EATING OR HANDLING ANY FRUITS, OR VEGETABLES; SUCH KIWI, BANANAS, STONE FRUITS, OR CHESTNUTSNO LATEX RISK : DO YOU HAVE A PREVIOUS PERSONAL HISTORY OF MORE THAN NINE SURGERIES, SPINA BIFIDA, OR REPEATED CATHERIZATIONS? NO LATEX RISK : ARE YOU FREQUENTLY EXPOSED TO LATEX PRODUCTS IN YOUR OCCUPATION?NO DATE ASKED : 08/29/2020 ALCOHOL SCREENING DID YOU HAVE A DRINK CONTAINING ALCOHOL IN THE PAST YEAR?YES HOW OFTEN DID YOU HAVE SIX OR MORE DRINKS ON ONE OCCASION IN THE PAST YEAR?NEVER (0 POINTS) HOW MANY DRINKS DID YOU HAVE ON A TYPICAL DAY WHEN YOU WERE DRINKING IN THE PAST YEAR?1 OR 2 (0 POINTS) HOW OFTEN DID YOU HAVE A DRINK CONTAINING ALCOHOL IN THE PAST YEAR?MONTHLY OR LESS (1 POINT) POINTS1 INTERPRETATIONNEGATIVE RECREATIONAL DRUG USE DRUG USE?NO CAFFEINE CAFFEINE USE?YES HOW OFTEN AND HOW MUCH? 2 CUPS IN THE AM HINDUISM [id number] OTHER NONE LANGUAGE LANGUAGES SPOKEN:CHINESE EDUCATION LEVEL OF EDUCATION:COLLEGE LEARNING BARRIERS / SPECIAL NEEDS CHANGE FROM LAST VISIT?NO BARRIERS TO LEARNING?NO HEARING IMPAIRED?NO VISION IMPAIRED?YES :CORRECTIVE LENSES COGNITIVELY IMPAIRED?NO READINESS TO LEARN?YES LEARNING PREFERENCES?YES :DEMONSTRATION/VERBAL INSTRUCTION LEARNING CAPABILITIES PRESENT?YES EMOTIONAL BARRIERS?NO SPECIAL DEVICES?YES :CANE NET DEVELOPER CONTRACT NEEDED?NO DOMESTIC VIOLENCE DO YOU FEEL SAFE IN YOUR ENVIRONMENT?YES DIET: REGULAR, CARBOHYDRATE CONTROLLED. EXERCISE: WALKS. MARITAL STATUS: SINGLE. OTHERS AT HOME: NONE. PAIN CLINIC PFS, CLERGY, PUBLIC HEALTH REFERRALS HAS THE PATIENT BEEN EDUCATED REGARDING HIS/HER PLAN OF CARE?YES HAS THE PATIENT BEEN EDUCATED REGARDING PAIN, THE RISK FOR PAIN, THE IMPORTANCE OF EFFECTIVE PAIN MANAGEMENT, AND THE PAIN ASSESSMENT PROCESS?YES HOUSING: OWNS HOME. ADVANCE DIRECTIVE ADVANCE DIRECTIVE DISCUSSED WITH PATIENT:YES HCP IS IVAN SCHNEIDER REVIEWED WITH PT 02/26/19 1015 BVREVIEWED WITH PATIENT 03/19/19 1033 NLJREVIEWED WITH PATIENT 04/16/19 1037 BVREVIEWED WITH PATIENT 06/23/19 1110 JS09/23/19 1325 REVIEWED WITH PT. AD. REVIEW OF SYSTEMS CONSTITUTIONAL: ANY RECENT FEVER NO . CHILLS NO . WEIGHT CHANGE OF UNKNOWN REASONS NO . GASTROENTEROLOGY: NEW UNEXPLAINABLE CHANGES IN BOWEL CONTROL NO . CONSTIPATION NO . GENITOURINARY: ANY NEW CHANGE IN BLADDER CONTROL? NO . NEUROLOGY: NEW ONSET DIZZINESS OR NEUROLOGICAL CHANGES NOT MENTIONED NO . NEW NUMBNESS OR PAIN PATTERNS NOT MENTIONED AND PERTINENT TO TODAY'S VISIT NO . CARDIOLOGY: NEW CHEST PRESSURE NO . NEW CHEST PAIN NO . RESPIRATORY: UNEXPLAINABLE COUGH NO . NEW SHORTNESS OF BREATH NO . VITAL SIGNS WT 296.4 LBS, HT 5'4", BMI 50.87 INDEX, BP 131/63 MM HG, HR 87 /MIN, RR 18 /MIN, TEMP 98.7 F, OXYGEN SAT % 98%, SAFE IN ENV? (Y/N) YES, REVIEWED BY: ELSA CA MA. EXAMINATION GENERAL EXAMINATION: GENERALNO ACUTE DISTRESS, WELL NOURISHED AND HYDRATED. PSYCHAPPROPRIATE MOOD AND AFFECT . LUNGS:CLEAR TO AUSCULTATION BILATERALLY, NO WHEEZES, RHONCHI, RALES. HEART:NO MURMURS, REGULAR RATE AND RHYTHM. ASSESSMENTS RHEUMATOID ARTHRITIS INVOLVING MULTIPLE SITES WITH POSITIVE RHEUMATOID FACTOR - M05.79 (PRIMARY) TREATMENT RHEUMATOID ARTHRITIS INVOLVING MULTIPLE SITES WITH POSITIVE RHEUMATOID FACTOR NOTES: 64-YEAR-OLD FEMALE IN FOR CHRONIC PAIN FOLLOW-UP. GIVEN PRESENTING SYMPTOMS RECOMMENDED CONTINUATION OF CURRENT MEDICATION REGIMEN WITH FOLLOW-UP IN 3 MONTHS. DISCUSSED DEPRESSION WITH PATIENT AND SHE ADMITS THAT SHE IS CURRENTLY SEEING MENTAL HEALTH FOR TREATMENT. PATIENT HAS EXPRESSED UNDERSTANDING OF AND WAS IN AGREEMENT WITH TREATMENT PLAN. GIVEN TIME TO ASK QUESTIONS AND EXPRESS CONCERNS. PROCEDURE CODES FA211 ESTABILISHED PATIENT [facility] CHARGE DISPOSITION & COMMUNICATION FOLLOW UP 3 MONTHS (REASON: RHEUMATOID ARTHRITIS ) ELECTRONICALLY SIGNED BY HARI NERI ON 08/30/2020 AT 09:10 AM EST DISCLAIMER : THIS IS A VISIT SUMMARY EXTRACTED FROM THE [employer] CHART. IT IS NOT A COPY OF THE [employer] PROGRESS NOTE. CURTIS
== END ==
LOC: M PAIN 11:00
PROVIDERS: ATTEND Family Medicine
DX: M05.79 Rheumatoid arthritis with rheumatoid factor of multiple sites without organ or systems involvement (principal); G89.29 Other chronic pain; E11.9 Type 2 diabetes mellitus without complications; G47.30 Sleep apnea, unspecified; G25.81 Restless legs syndrome; M79.7 Fibromyalgia; E03.9 Hypothyroidism, unspecified; Z86.59 Personal history of other mental and behavioral disorders; Z86.711 Personal history of pulmonary embolism; Z86.718 Personal history of other venous thrombosis and embolism; Z87.891 Personal history of nicotine dependence; Z88.8 Allergy status to other drugs, medicaments and biological substances; E66.01 Morbid (severe) obesity due to excess calories; Z68.43 Body mass index [BMI] 50.0-59.9, adult; Z79.01 Long term (current) use of anticoagulants; Z79.4 Long term (current) use of insulin; Z79.899 Other long term (current) drug therapy

== ENCOUNTER 2020-11-20 09:12 | Inpatient (IN) | payer MEDICARE, OTHER ==
[~2020-11-20] VITALS: Ht 165.1 cm; Wt 133.2 kg
[2020-11-20] MEDS ORDERED: ISOVUE-370 76% 100ML VIAL As Ordered ONE (10:02)
[2020-11-20 10:06] LABS: BASO % 0.4 % (0.0-1.0); EOS # 0.1 10^3/uL (0.0-0.5); EOS % 1.1 % (0.0-3.0); HEMATOCRIT 52.6 % (36.0-47.0); HEMOGLOBIN 16.4 g/dl (12.0-15.5); LYMPH # 0.8 10^3/uL (1.5-5.0); LYMPH % 10.9 % (24.0-44.0); MEAN CORPUSCULAR HEMOGLOBIN 28.9 pg (27.0-33.0); MEAN CORPUSCULAR HGB CONC 31.2 g/dl (32.0-36.5); MEAN CORPUSCULAR VOLUME 92.6 fl (80.0-96.0); MONO # 0.2 10^3/uL (0.0-0.8); NEUTROPHILS # 6.1 10^3/uL (1.5-8.5); NEUTROPHILS % 83.9 % (36.0-66.0); PLATELET COUNT, AUTOMATED 196 10^3/uL (150-450); RED BLOOD COUNT 5.68 10^6/uL (4.00-5.40); WHITE BLOOD COUNT 7.3 10^3/uL (4.0-10.0)
[2020-11-20 10:16] LABS: INR 1.97; PROTHROMBIN TIME 22.9 SECONDS (12.5-14.3)
[2020-11-20 10:17] LABS: PARTIAL THROMBOPLASTIN TIME 36.5 SECONDS (24.2-38.5)
[2020-11-20 10:51] LABS: ALBUMIN 4.1 GM/DL (3.2-5.2); ALT/SGPT 43 U/L (12-78); AMYLASE 44 U/L (25-115); BILIRUBIN,DIRECT < 0.1 MG/DL (0.0-0.2); BILIRUBIN,TOTAL 0.6 MG/DL (0.2-1.0); BLOOD UREA NITROGEN 30 MG/DL (7-18); CALCIUM LEVEL 11.1 MG/DL (8.8-10.2); CARBON DIOXIDE LEVEL 25 MEQ/L (21-32); CHLORIDE LEVEL 106 MEQ/L (98-107); CREATININE FOR GFR 1.15 MG/DL (0.55-1.30); GLOMERULAR FILTRATION RATE 50.9 (>45); GLUCOSE, FASTING 202 MG/DL (70-100); LIPASE 248 U/L (73-393); POTASSIUM SERUM 5.6 MEQ/L (3.5-5.1); SODIUM LEVEL 137 MEQ/L (136-145); TOTAL PROTEIN 7.4 GM/DL (6.4-8.2)
--- NOTE | 2020-11-20 10:57 | REP ---
INDICATION: lower abdominal pain, gi bleed COMPARISON: None. TECHNIQUE: CT Scan of the abdomen and pelvis was performed with intravenous administration of 100 cc of Isovue 370, without oral contrast. Sagittal and coronal reconstruction images are performed. FINDINGS: Lung bases: Unremarkable. Liver: There is a hepatomegaly, the length of the liver is approximately 20 cm. Diffuse fatty infiltration is suspected. Gallbladder: Prior cholecystectomy. Spleen: There is mild splenomegaly, the length of the spleen is 14.2 cm. Adrenals: Normal. Pancreas: Normal. Kidneys: Normal. Small and large bowel: The left transverse and the descending colon are collapsed but I suspect mild diffuse thickening and colitis of these portions of the colon.. Free fluid: None. Abdominal aorta: No aneurysm or dissection. Adenopathy: None. Appendix: Prior appendectomy. Osseous structures: There are degenerative changes of the spine without compression deformity. Pelvis: No mass. IMPRESSION: The left transverse and the descending colon are collapsed but appear to be diffusely thickened suggesting colitis. No free air or free fluid. No bowel obstruction. Hepatosplenomegaly. <Electronically signed by Otis Chaney > 11/20/20 3341
[2020-11-20] MEDS ORDERED: METF10004 PO (12:48)
[2020-11-20] MEDS ORDERED: TOUJ1.2I SC (12:48)
[2020-11-20] MEDS ORDERED: HUMA100I5 SC (12:48)
[2020-11-20] MEDS ORDERED: PRAM1TAB7 PO (12:48)
[2020-11-20] MEDS ORDERED: BACL1TAB9 PO (12:48)
[2020-11-20] MEDS ORDERED: TEMA30CA PO (12:48)
[2020-11-20] MEDS ORDERED: QUET50TA3 PO (12:48)
[2020-11-20] MEDS ORDERED: ZYLO300T6 PO (12:48)
[2020-11-20] MEDS ORDERED: FENO135C6 PO (12:48)
[2020-11-20] MEDS ORDERED: DULO30CA9 PO (12:48)
[2020-11-20] MEDS ORDERED: LEVO137T2 PO (12:48)
[2020-11-20] MEDS ORDERED: WARF-23 PO (12:48)
[2020-11-20] MEDS ORDERED: COLA100C5 PO (12:48)
[2020-11-20] MEDS ORDERED: PIOG1TAB36 PO (12:48)
[2020-11-20] MEDS ORDERED: GABA-282 PO ×2 (12:48)
[2020-11-20] MEDS ORDERED: D3 U5000 PO (12:48)
[2020-11-20] MEDS ORDERED: BYDU2INJ7 SC (12:48)
[2020-11-20] MEDS ORDERED: SPIR-10 PO (12:48)
[2020-11-20] MEDS ORDERED: EZET10TA21 PO (12:48)
[2020-11-20] MEDS ORDERED: WARF-18 PO (12:48)
[2020-11-20] MEDS ORDERED: BENA1TAB24 PO (12:48)
[2020-11-20] MEDS ORDERED: JARD1TAB3 PO (12:48)
[2020-11-20] MEDS ORDERED: ACET-683 PO (12:48)
[2020-11-20] MEDS: PRAMIPEXOLE 1 MG TAB PO SCH ×2 (13:00→20:32)
[2020-11-20 13:25] LABS: RSV AMPLIFICATION NEGATIVE (NEGATIVE)
[2020-11-20] MEDS ORDERED: WARFARIN SOD 5MG TAB PO SCH (14:05)
[2020-11-20] MEDS ORDERED: MAALOX 30 ML SUSP *UDC PO PRN (14:05)
[2020-11-20] MEDS ORDERED: GLUCAGON INJ 1MG VIAL SC PRN (14:05)
[2020-11-20] MEDS ORDERED: DEXTROSE 50% 50 ML SYRINGE IV PRN (14:05)
[2020-11-20] MEDS ORDERED: WARFARIN SOD 2.5MG TAB PO SCH (14:05)
[2020-11-20] MEDS ORDERED: MOM 30ML SUSPENSION UDC PO PRN (14:05)
[2020-11-20] MEDS ORDERED: GLUCOSE 4GM CHEW TABLET PO PRN (14:05)
[2020-11-20] MEDS ORDERED: TEMAZEPAM 15 MG CAP PO PRN (14:05)
[2020-11-20 14:51] LABS: INR 2.12; PROTHROMBIN TIME 24.2 SECONDS (12.5-14.3)
[2020-11-20 16:00] VITALS: BP 138/71
--- NOTE | 2020-11-20 16:22 | HPEPDOC ---
[facility] Medical History & Physical Date of Admission Nov 20, 2020 Date of Service: Nov 20, 2020 Primary Care Physician: ALDAIR FOSTER Attending Physician: JEREMIAS ROGERS MD History and Physical CHIEF COMPLAINT: Bright red blood per rectum HISTORY OF PRESENT ILLNESS: Patient is a 64 y/o F with hx sjogren syndrome, RA, OA, GUME (on CPAP), fibromyalgia, DVT (2x L upper leg), PE (2014, on coumadin) and IBS, presenting to the ED c/o bright red blood per rectum. Per patient, she had reduced appetite last night and had 12 episodes of bowel movements with associated abd cramps overnight. Her BM episodes evolved from formed to loose (unimproved by 2x OTC loperamide) and her last BM became bloody (reported bright red blood in the toilet bowl), prompting patient to present to the ED for evaluation. She rated her diffuse abd cramp as 7/10 at worst, relieved with pako l movement, but built back up again over time. Patient reported previous experience with similar frequent BM episodes five years ago 2/2 IBS with up to 7-8 episodes of BM a day and abd cramps, however, they usually resolve spontaneously. She denied recent change in diet or medication, associated fever, chills, CP, SOB, palpitation and urinary symptoms, but noted nausea without vomiting. She has had 2x colonoscopy prior, her last colonoscopy was in 2013 and was unremarkable. PAST MEDICAL HISTORY: HYPERTENSION HYPERLIPIDEMIA TYPE 2 DIABETES RHEUMATHOID ARTHRITIS DEPRESSION AND ANXIETY RESTLESS LEG SYNDROME SLEEP APNEA FIBROMYALGIA GOUT HYPOTHYROID DVT LEFT UPPER LEG PULMONARY EMBOLISM (2014) BILATERAL CARPAL TUNNEL Sjogren Syndrome PAST SURGICAL HISTORY: 1. Appendectomy 2. Cholecystectomy 3. L knee surgery x4, with left total knee replacement 4. Parathyroidectomy (for hypercalcemia) SOCIAL HISTORY: Tobacco use: Quit 22 yrs ago, smoked up to 2ppd for 10 years ETOH: social drinker Illicit drug use: None IV drug use: None FAMILY HISTORY: Father: at age 85 2/2 respiratory failure, Hx of COPD and HTN Mother: at age 83 with hx of dementia, HTN, multiple myeloma and diverticulitis ALLERGIES: Please see below. REVIEW OF SYSTEMS: CONSTITUTIONAL: Denies chills, fever, weakness, fatigue, unexpected weight change, noted loss of appetite HEENT: Denies headaches, dizziness, vision changes, hearing changes or throat pain. CARDIOVASCULAR: Denies chest pain, palpitations, dyspnea on exertion, but noted LLE edema RESPIRATORY: Denies wheezing, dyspnea, cough or hemoptysis GASTROINTESTINAL: Denies vomiting, constipation, melena, but noted abd pain, nausea, hematochezia, diarrhea. GENITAOURINARY: Denies dysuria, hematuria, urinary frequency, incontinence or retention. SKIN: Denies skin changes, rash, lesions, jaundice, bruising MUSCULOSKELETAL: Denies weakness, muscle or joint pain. NEUROLOGICAL: Denies focal weakness, numbness, tingling, change in Speech PSYCHIATRIC: Denies SI, HI, audio/visual hallucination HEMATOLOGICAL: Denies bruising, excessive bleeding, petechiae HOME MEDICATIONS: Please see below. PHYSICAL EXAMINATION: VITAL SIGNS: See below GENERAL APPEARANCE: Revealed 64 y/o F appearing at stated age sitting reclined on ER cot, alert & oriented, no acute distress. HEENT Exam: Normocephalic and atraumatic, PERRLA, conjunctiva & lids normal, EOMI, without sclera icteric, mucous membr. moist/pink, pharynx normal, nares patent. NECK: Supple without lymphadenopathy, JVD, thyromegaly LUNGS: Clear to auscultation bilaterally with full breath sounds without rales, wheezing, and crackles. CARDIOVASCULAR: Regular rate and rhythm, normal S1 & S2 without gallops, murmurs, rubs ABDOMEN: Obese abd, soft, non-distended with normal bowel sounds, tender to palpation in B/L lower quadrants. Healed midline surgical scar noted. No masses or ecchymosis or hepatosplenomegaly. EXTREMITIES: 2+ pulses in all extremities. 1+ bilateral pitting edema L>R. No clubbing, cyanosis, tenderness. Multiple cat scratch wound in bilateral lower extremities. SKIN: Normal turgor and temperature. No rash, lesion MUSCULOSKELETAL: Strength +5/5 in all extremities without tenderness. NEUROLOGICAL: Normal gait, intact sensation, cranial nerves III-XII normal PSYCHIATRIC: Normal mood and affect LABORATORY DATA: See below. IMAGING: CT ABD/PEL W/IV CONTRAST ONLY Impression: The left transverse and the descending colon are collapsed but appear to be diffusely thickened suggesting colitis. No free air or free fluid. No bowel obstruction. MICROBIOLOGY: Please see below. ASSESSMENT: 64 y/o F with hx sjogren syndrome, RA, OA, GUME (on CPAP), fibromyalgia, DVT (2x L upper leg), PE (2014, on coumadin) and IBS, presenting to the ED c/o 1 episode of bright red blood per rectum after 11x episodes of BM. Her abd CT revealed evidence of colitis without free air, fluid or bowel obstruction. Patient has not had any bowel movement in the ED and is admitted for hematochezia workup. PLAN: 1. Hematochezia with diarrhea - Infectious vs autoimmune vs hemorrhoid vs malignancy vs coumadin induced coagulopathy - Hold coumadin - Consult general surgery for colonoscopy pending results of C.Diff - She has had 2x colonoscopy prior, her last colonoscopy was in 2012 and was unremarkable. - COVID negative - CT abd with IV contrast showed left transverse and the descending colon are collapsed but appear to be diffusely thickened suggesting colitis. No free air or free fluid. No bowel obstruction. - C.Diff toxin screen pending r/o infectious etiology - NPO 2. Hx of PE in 2014 and DVT - Patient takes coumadin 5.0mg daily with 2.5 mg every third day. - Last dose was 5.0mg on friday - Hold coumadin - INR 2.12 within therapeutic range on admission 3. DM2 - Start SSI - Cont levemir - Hold metformin, exenatide, pioglitazone 4. HTN - Cont benazepril - Hold spironolactone due to elevated K - Recheck BMP in am 5. HLD - Cont Ezetimibe - fenofibric acid unavailable 6. Hypothyroidism - Cont levothyroxine 7. Gout - Cont allopurinol 8. Fibromyalgia - Cont gabapentin, Temazepam, Baclofen, acetaminophen prn 9. Depression and anxiety - Cont Quetiapine 10. RLS - Cont pramipexole VTE prophylaxis: compression stockings, anticoagulant on hold due to bleeding. Diet: NPO Code status: Full code Vital Signs Vital Signs Date Time Temp Pulse Resp B/P (MAP) Pulse Ox O2 Delivery O2 Flow Rate FiO2 11/20/20 09:54 11/20/20 09:13 96.1 79 20 99 Room Air Laboratory Data Labs 24H Laboratory Tests 2 11/20/20 09:41: Immature Granulocyte % (Auto) 0.7, Neutrophils (%) (Auto) 83.9H, Lymphocytes (%) (Auto) 10.9L, Monocytes (%) (Auto) 3.0, Eosinophils (%) (Auto) 1.1, Basophils (%) (Auto) 0.4, Neutrophils # (Auto) 6.1, Lymphocytes # (Auto) 0.8L, Monocytes # (Auto) 0.2, Eosinophils # (Auto) 0.1, Basophils # (Auto) 0.0, Nucleated Red Blood Cells % (auto) 0.0, Prothrombin Time 22.9H, Prothromb Time International Ratio 1.97, Activated Partial Thromboplast Time 36.5, Anion Gap 6L, Glomerular Filtration Rate 50.9, Calcium Level 11.1H, Total Bilirubin 0.6, Direct Bilirubin < 0.1, Aspartate Amino Transf (AST/SGOT) 40H, Alanine Aminotransferase (ALT/S GPT) 43, Alkaline Phosphatase 116, Total Protein 7.4, Albumin 4.1, Albumin/Globulin Ratio 1.2, Amylase Level 44, Lipase 248 11/20/20 09:44: POC Glucose (Misc Panel) 198H, POC Sodium (Misc Panel) 137, POC Potassium (Misc Panel) 4.7, POC Chloride (Misc Panel) 104, POC Total CO2 (Misc Panel) 25.0, POC Blood Urea Nitrogen (Misc Panel 32H, POC Ionized Calcium (Misc Panel) 5.5H, POC Creatinine (Misc Panel) 1.0, POC Hematocrit (Misc Panel) 52.0H 11/20/20 12:00: Urine Color YELLOW, Urine Appearance CLEAR, Urine pH 5.0, Urine Specific Byron 1.038, Urine Protein NEGATIVE, Urine Glucose (UA) 3+H, Urine Ketones NEGATIVE, Urine Blood 1+H, Urine Nitrite NEGATIVE, Urine Bilirubin NEGATIVE, Urine Urobilinogen 0.2, Urine Leukocyte Esterase NEGATIVE, Urine WBC (Auto) 6H, Urine RBC (Auto) 2, Urine Hyaline Casts (Auto) 1, Urine Bacteria (Auto) NEGATIVE, Urine Squamous Epithelial Cells 0, Urine Sperm (Auto) 11/20/20 12:36: Coronavirus (COVID-19)(PCR) NEGATIVE, Influenza Type A (RT-PCR) NEGATIVE, Influenza Type B (RT-PCR) NEGATIVE, Respiratory Syncytial Virus (PCR) NEGATIVE 11/20/20 14:31: Prothrombin Time 24.2H, Prothromb Time International Ratio 2.12 CBC/BMP Laboratory Tests 11/20/20 09:41 Home Medications Scheduled Allopurinol (Zyloprim) 300 Mg Tablet, 300 MG PO QPM Baclofen (Baclofen) 20 Mg Tablet, 20 MG PO QHS Benazepril HCl (Benazepril HCl) 10 Mg Tablet, 10 MG PO DAILY Cholecalciferol (Vitamin D3) (Vitamin D3) 125 Mcg Capsule, 5,000 UNITS PO DAILY Ciprofloxacin HCl (Ciprofloxacin HCl) 250 Mg Tablet, 2 TAB PO BID Duloxetine Hcl (Duloxetine HCl) 30 Mg Capsule.dr, 30 MG PO TID Empagliflozin (Jardiance) 25 Mg Tablet, 25 MG PO DAILY Exenatide Microspheres (Bydureon Bcise) 2 Mg/0.85 Ml Auto.injct, 2 MG SC QWEEK MONDAYS Ezetimibe (Ezetimibe) 10 Mg Tablet, 10 MG PO QPM Fenofibric Acid (Choline) (Fenofibric Acid) 135 Mg Capsule.dr, 135 MG PO QPM Gabapentin (Gabapentin) 300 Mg Capsule, 300 MG PO BID TAKES AT AM/NOON Gabapentin (Gabapentin) 300 Mg Capsule, 600 MG PO QHS Insulin Glargine,Hum.rec.anlog (Toujeo Solostar) 300 Unit/1 Ml Insuln.pen, 80 UNIT SC DAILY Insulin Lispro (Humalog Kwikpen U-100) 100 Unit/1 Ml Insuln.pen, 1 DOSE SC AC PER SLIDING SCALE Levothyroxine Sodium (Levothyroxine Sodium) 137 Mcg Tablet, 137 MCG PO QAM Metformin HCl (Metformin HCl) 1,000 Mg Tablet, 1,000 MG PO BID Metronidazole (Flagyl) 500 Mg Tablet, 500 MG PO BID for colitis Pioglitazone HCl (Pioglitazone HCl) 15 Mg Tablet, 15 MG PO DAILY Pramipexole Di-HCl (Pramipexole Dihydrochloride) 1 Mg Tablet, 1 MG PO BID TAKES AT 1300/HS Quetiapine Fumarate (Quetiapine Fumarate) 50 Mg Tablet, 50 MG PO QHS Spironolactone (Spironolactone) 25 Mg Tablet, 25 MG PO BID Scheduled PRN Acetaminophen (Acetaminophen) 500 Mg Tablet, 1,000 MG PO Q6H PRN for PAIN Docusate Sodium (Colace) 100 Mg Capsule, 100 MG PO BID PRN for CONSTIPATION Temazepam (Temazepam) 30 Mg Capsule, 30 MG PO QHS PRN for RESTLESS LEG Allergies Coded Allergies: quinine (Unverified Allergy, Unknown, 02/18/20) Xazigja-Xhs-Jkc Reductase Inhibitor (Verified Adverse Reaction, Intermediate, MAKES RLS WORSE, 02/18/20) A-FIB/CHADSVASC A-FIB History Current/History of A-Fib/PAF?: No Current PO Anticoag Therapy: Yes GME ATTESTATION GME ATTESTATION My faculty preceptor for this patient encounter was physically present during the encounter and was fully available. All aspects of the patient interview, ex amination, medical decision making process, and medical care plan development were reviewed and approved by the faculty preceptor. The faculty preceptor is aware and concurs with the plan as stated in the body of this note and will attest to such by his/her cosignature. ATTENDING NOTE I, Jeremias Rogers MD, have independently examined this patient and performed my own physical exam, as well as reviewed the documentation and edited where necessary. I have discussed in detail with the resident / student the findings and plan of treatment as documented by the resident / student and edited their note. I agree with their findings and treatment plan and have edited their docum entation. RIK MURGUIA OMS-3 Nov 20, 2020 15:05 JEREMIAS ROGERS MD Nov 24, 2020 15:44
[2020-11-20] MEDS ORDERED: HumaLOG INSULIN (NovoLOG) PER UNIT SC SCH ×2 (17:30→21:00)
[2020-11-20] MEDS: NS 1,000 ML IV SCH (18:00)
[2020-11-20] MEDS: ACETAMINOPHEN TAB 650MG DOSE (2X325MG) PO PRN (18:04)
[2020-11-20] MEDS: BACLOFEN 10 MG TAB PO SCH (20:31)
[2020-11-20] MEDS: allopurinoL 300 MG TAB PO SCH (20:32)
[2020-11-20] MEDS: GABAPENTIN 300 MG CAP PO SCH (20:32)
[2020-11-20] MEDS: QUEtiapine FUMARATE 50MG TAB PO SCH (20:32)
[2020-11-20] MEDS: EZETIMIBE 10 MG TAB (ZETIA) PO SCH (20:32)
[2020-11-20] MEDS: DOCUSATE SODIUM 100MG CAPSULE PO SCH (20:32)
[2020-11-20] MEDS ORDERED: LEVEMIR (INSULIN DETEMIR) 1 UNITS/0.01ML SC SCH (21:00)
[2020-11-20] MEDS ORDERED: LEVEMIR (INSULIN DETEMIR) 1 UNITS/0.01ML SC ONE (21:20)
[2020-11-20 22:00] VITALS: BP 121/70
[2020-11-21] MEDS: ACETAMINOPHEN TAB 650MG DOSE (2X325MG) PO PRN ×3 (00:21→20:20)
[2020-11-21] MEDS: NS 1,000 ML IV SCH ×2 (00:21→08:03)
[2020-11-21] MEDS: HumaLOG INSULIN (NovoLOG) PER UNIT SC SCH ×4 (00:23→17:40)
[2020-11-21 06:00] VITALS: BP 117/65
[2020-11-21] MEDS: LEVOTHYROXINE 137MCG TABLET (0.137MG) PO SCH (06:07)
[2020-11-21 06:49] LABS: BASO # 0.1 10^3/uL (0.0-0.2); BASO % 0.6 % (0.0-1.0); EOS # 0.2 10^3/uL (0.0-0.5); EOS % 2.7 % (0.0-3.0); HEMATOCRIT 47.8 % (36.0-47.0); HEMOGLOBIN 15.2 g/dl (12.0-15.5); LYMPH # 1.4 10^3/uL (1.5-5.0); LYMPH % 16.4 % (24.0-44.0); MEAN CORPUSCULAR HEMOGLOBIN 29.2 pg (27.0-33.0); MEAN CORPUSCULAR HGB CONC 31.8 g/dl (32.0-36.5); MEAN CORPUSCULAR VOLUME 91.7 fl (80.0-96.0); MONO # 0.5 10^3/uL (0.0-0.8); MONO % 5.7 % (2.0-8.0); NEUTROPHILS # 6.2 10^3/uL (1.5-8.5); NEUTROPHILS % 74.2 % (36.0-66.0); PLATELET COUNT, AUTOMATED 161 10^3/uL (150-450); RED BLOOD COUNT 5.21 10^6/uL (4.00-5.40); WHITE BLOOD COUNT 8.4 10^3/uL (4.0-10.0)
[2020-11-21 07:14] LABS: BLOOD UREA NITROGEN 18 MG/DL (7-18); CALCIUM LEVEL 10.1 MG/DL (8.8-10.2); CARBON DIOXIDE LEVEL 22 MEQ/L (21-32); CHLORIDE LEVEL 112 MEQ/L (98-107); CREATININE FOR GFR 0.81 MG/DL (0.55-1.30); GLOMERULAR FILTRATION RATE > 60.0 (>45); GLUCOSE, FASTING 134 MG/DL (70-100); POTASSIUM SERUM 4.2 MEQ/L (3.5-5.1); SODIUM LEVEL 142 MEQ/L (136-145)
[2020-11-21] MEDS: GABAPENTIN 300 MG CAP PO SCH ×3 (08:02→20:21)
[2020-11-21] MEDS: DOCUSATE SODIUM 100MG CAPSULE PO SCH (09:00)
--- NOTE | 2020-11-21 11:26 | IPNPDOC ---
Text Note Date of Service The patient was seen on 11/21/20. NOTE S Patient reported improvement in her abdominal cramp overnight. Her cramp is now more intermittent (again relieved by bowel movement) and rated 4/10 at worst. She reported 1 episode of bloody stool overnight (semi-formed) and 1 episode of passing blood per rectum today. Patient denied developing fever, chills, dizziness, N/V, CP, SOB overnight. Patient's insulin regimen was reduced to 32 levemir units last night due to NPO. Patient's potassium improved to 4.2 after holding spironolactone. O PHYSICAL EXAMINATION: VITAL SIGNS: See below GENERAL APPEARANCE: Revealed 64 y/o F appearing at stated age sitting at bed side, alert & oriented, no acute distress. HEENT Exam: Normocephalic and atraumatic, PERRLA, conjunctiva & lids normal, EOMI, without sclera icteric, mucous membr. moist/pink, pharynx normal, nares patent. NECK: Supple without lymphadenopathy, JVD, thyromegaly LUNGS: Clear to auscultation bilaterally with full breath sounds without rales, wheezing, and crackles. CARDIOVASCULAR: Regular rate and rhythm, normal S1 & S2 without gallops, murmurs, rubs ABDOMEN: Obese abd, soft, non-distended with normal bowel sounds, mildly tender to palpation in bilateral lower abd. Healed midline surgical scar noted. No masses or ecchymosis or hepatosplenomegaly. EXTREMITIES: 2+ pulses in all extremities. No clubbing, cyanosis, tenderness. Trace pitting edema noted bilaterally L>R. Multiple cat scratch wound in bilateral lower extremities. SKIN: Normal turgor and temperature. MUSCULOSKELETAL: Strength +5/5 in all extremities without tenderness. NEUROLOGICAL: Normal gait, intact sensation, cranial nerves III-XII normal PSYCHIATRIC: Normal mood and affect ASSESSMENT: 64 y/o F with hx sjogren syndrome, RA, OA, GUME (on CPAP), fibromyalgia, DVT (2x L upper leg), PE (2014, on coumadin) and IBS, presenting to the ED c/o 1 episode of bright red blood per rectum after 11x episodes of BM. Her abd CT revealed evidence of colitis without free air, fluid or bowel obstruction. Patient has not had any bowel movement in the ED and is admitted for hematochezia workup. Upon admission, she was kept NPO overnight and her coumadin was held. Patient had 2 additional episode of bleeding per rectum overnight but her diarrhea resolved. Colonoscopy not recommended at this time due to active inflammation. C.Diff screen unable to perform due to bloody bowel movement. Patient started on empiric antibiotics at this time for her colitis. PLAN: 1. Hematochezia with diarrhea, diarrhea resolved - diarrhea now resolved with persistent hematochezia (2 additional episodes overnight) - Infectious vs autoimmune vs hemorrhoid vs malignancy vs coumadin induced coagulopathy - Hold coumadin, recheck coag panel tomorrow am. - Colonoscopy not indicated at this time due to acute inflammation - She has had 2x colonoscopy prior, her last colonoscopy was in 2012 and was unremarkable. - COVID negative - CT abd with IV contrast showed left transverse and the descending colon are collapsed but appear to be diffusely thickened suggesting colitis. No free air or free fluid. No bowel obstruction. - C.diff screen cancelled, patient's diarrhea resolved. - Advance to full liquid diet - Start empiric IV cipro and flagyl for colitis. 2. Hx of PE in 2014 and DVT - Patient takes coumadin 5.0mg daily with 2.5 mg every third day. - Last dose was 5.0mg on friday - Continue to hold coumadin, recheck coag panel in am. - INR 2.12 within therapeutic range on admission 3. DM2 - Start SSI - Received 32 units levemir overnight due to NPO - Diet advanced to clear liquid today, continue 32 units levemir qhs and SSI q6hr - Hold metformin, exenatide, pioglitazone 4. HTN - Cont benazepril - Hold spironolactone due to elevated K, K now improved to 4.2 - Patient normotensive and no signs of hypervolemia at this time. Cont to hold spironolactone. - Cont to monitor 5. HLD - Cont Ezetimibe - fenofibric acid unavailable 6. Hypothyroidism - Cont levothyroxine 7. Gout - Cont allopurinol 8. Fibromyalgia - Cont gabapentin, Temazepam, Baclofen, acetaminophen prn 9. Depression and anxiety - Cont Quetiapine 10. RLS - Cont pramipexole VS,Fishbone, I+O VS, Fishbone, I+O Laboratory Tests 11/21/20 06:13 Vital Signs Date Time Temp Pulse Resp B/P (MAP) Pulse Ox O2 Delivery O2 Flow Rate FiO2 11/21/20 06:00 98.2 79 21 117/65 (82) 96 Room Air I&O- Last 24 Hours up to 6 AM 11/21/20 06:00 Intake Total 0 ml Output Total 800 ml Balance -800 ml GME ATTESTATION GME ATTESTATION My faculty preceptor for this patient encounter was physically present during the encounter and was fully available. All aspects of the patient interview, examination, medical decision making process, and medical care plan development were reviewed and approved by the faculty preceptor. The faculty preceptor is aware and concurs with the plan as stated in the body of this note and will attest to such by his/her cosignature. ATTENDING NOTE I, Jeremias Alonzo MD, have independently examined this patient and performed my own physical exam, as well as reviewed the documentation and edited where syed cuadra. I have discussed in detail with the resident / student the findings and plan of treatment as documented by the resident / student and edited their note. I agree with their findings and treatment plan and have edited their documentation. RIK MURGUIA OMS-3 Nov 21, 2020 11:26 JEREMIAS ALONZO MD Nov 24, 2020 15:49
[2020-11-21] MEDS: metroNIDAZOLE 500 MG in IV 1 EA IV SCH ×2 (13:10→20:29)
[2020-11-21] MEDS: CIPROFLOXACIN 200 MG in IV 1 EA IV SCH (13:10)
[2020-11-21] MEDS: PRAMIPEXOLE 1 MG TAB PO SCH ×2 (13:11→20:21)
[2020-11-21 14:00] VITALS: BP 122/62
[2020-11-21 17:35] LABS: CLOSTRIDIUM DIFFICILE PCR NEGATIVE (NEGATIVE)
[2020-11-21] MEDS: allopurinoL 300 MG TAB PO SCH (20:20)
[2020-11-21] MEDS: QUEtiapine FUMARATE 50MG TAB PO SCH (20:21)
[2020-11-21] MEDS: BACLOFEN 10 MG TAB PO SCH (20:21)
[2020-11-21] MEDS: EZETIMIBE 10 MG TAB (ZETIA) PO SCH (20:21)
[2020-11-21 20:24] VITALS: BP 126/62
[2020-11-21] MEDS ORDERED: LEVEMIR (INSULIN DETEMIR) 1 UNITS/0.01ML SC SCH (21:00)
[2020-11-21] MEDS ORDERED: HumaLOG INSULIN (NovoLOG) PER UNIT SC SCH (21:00)
[2020-11-21 22:00] VITALS: BP 122/61
[2020-11-22] MEDS: CIPROFLOXACIN 200 MG in IV 1 EA IV SCH ×2 (00:31→14:17)
[2020-11-22] MEDS: metroNIDAZOLE 500 MG in IV 1 EA IV SCH ×2 (03:04→12:38)
[2020-11-22] MEDS: LEVOTHYROXINE 137MCG TABLET (0.137MG) PO SCH (05:34)
[2020-11-22 06:00] VITALS: BP 118/66
[2020-11-22 06:38] LABS: BASO % 0.6 % (0.0-1.0); EOS # 0.3 10^3/uL (0.0-0.5); EOS % 3.9 % (0.0-3.0); HEMATOCRIT 46.1 % (36.0-47.0); HEMOGLOBIN 14.2 g/dl (12.0-15.5); LYMPH # 1.2 10^3/uL (1.5-5.0); LYMPH % 17.4 % (24.0-44.0); MEAN CORPUSCULAR HEMOGLOBIN 28.9 pg (27.0-33.0); MEAN CORPUSCULAR HGB CONC 30.8 g/dl (32.0-36.5); MEAN CORPUSCULAR VOLUME 93.7 fl (80.0-96.0); MONO # 0.4 10^3/uL (0.0-0.8); MONO % 5.3 % (2.0-8.0); NEUTROPHILS % 72.4 % (36.0-66.0); PLATELET COUNT, AUTOMATED 170 10^3/uL (150-450); RED BLOOD COUNT 4.92 10^6/uL (4.00-5.40)
[2020-11-22 06:53] LABS: INR 2.2
[2020-11-22 06:54] LABS: PARTIAL THROMBOPLASTIN TIME 53.6 SECONDS (24.2-38.5)
[2020-11-22 07:07] LABS: BLOOD UREA NITROGEN 13 MG/DL (7-18); CALCIUM LEVEL 9.9 MG/DL (8.8-10.2); CARBON DIOXIDE LEVEL 27 MEQ/L (21-32); CHLORIDE LEVEL 109 MEQ/L (98-107); CREATININE FOR GFR 0.84 MG/DL (0.55-1.30); GLOMERULAR FILTRATION RATE > 60.0 (>45); GLUCOSE, FASTING 151 MG/DL (70-100); POTASSIUM SERUM 3.9 MEQ/L (3.5-5.1); SODIUM LEVEL 142 MEQ/L (136-145)
[2020-11-22] MEDS: GABAPENTIN 300 MG CAP PO SCH ×2 (08:08→12:37)
[2020-11-22] MEDS: HumaLOG INSULIN (NovoLOG) PER UNIT SC SCH ×2 (08:08→12:37)
[2020-11-22] MEDS ORDERED: CIPR500S PO (11:56)
[2020-11-22] MEDS ORDERED: FLAG500T PO (11:56)
[2020-11-22] MEDS: PRAMIPEXOLE 1 MG TAB PO SCH (12:37)
[2020-11-22 14:00] VITALS: BP 104/56
--- NOTE | 2020-11-22 15:55 | DS.PDOC ---
Discharge Summary General Date of Admission Nov 21, 2020 at 18:45 Date of Discharge 11/22/2020 Primary Care Physician: ALDAIR FOSTER Attending Physician: JEREMIAS ROGERS MD Discharge Summary PROCEDURES PERFORMED DURING STAY: [None]. ADMITTING DIAGNOSES: 1. Hematochezia with diarrhea 2. Hx of PE in 2014 and DVT 3. DM2 4. HTN 5. HLD 6. Hypothyroidism 7. Gout 8. Fibromyalgia 9. Depression and anxiety 10. RLS DISCHARGE DIAGNOSES: 1. Hematochezia with diarrhea 2. Hx of PE in 2014 and DVT 3. DM2 4. HTN 5. HLD 6. Hypothyroidism 7. Gout 8. Fibromyalgia 9. Depression and anxiety 10. RLS COMPLICATIONS/CHIEF COMPLAINT: Colitis Lower Gi Bleed. HISTORY OF PRESENT ILLNESS: Patient is a 64 y/o F with hx sjogren syndrome, RA, OA, GUME (on CPAP), fibromyalgia, DVT (2x L upper leg), PE (2014, on coumadin) and IBS, presenting to the ED c/o bright red blood per rectum. Per patient, she had reduced appetite last night and had 12 episodes of bowel movements with associated abd cramps overnight. Her BM episodes evolved from formed to loose (unimproved by 2x OTC loperamide) and her last BM became bloody (reported bright red blood in the toilet bowl), prompting patient to present to the ED for evaluation. She rated her diffuse abd cramp as 7/10 at worst, relieved with bowel movement, but built back up again over time. Patient reported previous experience with similar frequent BM episodes five years ago 2/2 IBS with up to 7-8 episodes of BM a day and abd cramps, however, they usually resolve spo ntaneously. She denied recent change in diet or medication, associated fever, chills, CP, SOB, palpitation and urinary symptoms, but noted nausea without vomiting. She has had 2x colonoscopy prior, her last colonoscopy was in 2013 and was unremarkable. HOSPITAL COURSE: Her abd CT revealed evidence of colitis at left transverse and descending colon without free air, fluid or bowel obstruction. Patient has not had any bowel movement in the ED and was admitted for hematochezia workup. Upon admission, she was kept NPO overnight and her coumadin was held. Patient had 2 additional episode of bleeding per rectum overnight of 11/20. Colonoscopy not recommended at this time due to active inflammation. Patient started on empiric antibiotics (cipro and flagyl IV), currently on day 2 of antibiotics for her colitis. Patient's diet was advanced to full liquid diet on 11/21 and patient developed another episode of bloody liquid stool night of 11/21. C.diff screening was sent and returned negative. Her Hgb remained normal during her hospital stay despite trending down 2/2 hemodilution. Patient was also found hyperkalemic (5.6) that resolved after holding her spironolactone. During her hospital cour se, patient's oral diabetic regimen was held but she was continued on the rest of her home medication. Her basal insulin was lowered to 32 units qHS given her NPO status while admitted. On the day of discharge, patient reported no additional cramps till 6am. Cramp lasted 10-15 minutes and was 4/10 at worst with spontaneous resolution. She ate breakfast without any symptoms 1 hour after meal. Patient denied fever, chills, N/V, CP, SOB and urinary symptoms. After discharge, patient will continue 3 more days of PO cipro and flagyl starting 11/23 and last dose on 11/25 (5 day course). She will continue to hold her coumadin for 5-7 days, continue soft diet, and follow up with her PCP to determine the need to restart anticoagulation upon re-evaluate her hematochezia and INR. If bleeding resolves, she can be restarted on coumadin. However, patient will still need outpatient colonoscopy with GI to confirm the cause of rectal bleeding after her colitis resolves to r/o other causes. DISCHARGE MEDICATIONS: Please see below. ALLERGIES: Please see below. PHYSICAL EXAMINATION ON DISCHARGE: VITAL SIGNS: See below GENERAL APPEARANCE: Revealed 64 y/o F appearing at stated age sitting at bed side, alert & oriented, no acute distress. HEENT Exam: Normocephalic and atraumatic, PERRLA, conjunctiva & lids normal, EOMI, without sclera icteric, mucous membr. moist/pink, pharynx normal, nares p atent. NECK: Supple without lymphadenopathy, JVD, thyromegaly LUNGS: Clear to auscultation bilaterally with full breath sounds without rales, wheezing, and crackles. CARDIOVASCULAR: Regular rate and rhythm, normal S1 & S2 without gallops, murmurs, rubs ABDOMEN: Obese abd, soft, non-distended with normal bowel sounds, mildly tender to palpation in bilateral lower abd. Healed midline surgical scar noted. No masses or ecchymosis or hepatosplenomegaly. EXTREMITIES: 2+ pulses in all extremities. No clubbing, cyanosis, tenderness. Trace pitting edema noted bilaterally L>R. Multiple cat scratch wound in bilateral lower extremities. SKIN: Normal turgor and temperature. MUSCULOSKELETAL: Strength +5/5 in all extremities without tenderness. NEUROLOGICAL: Normal gait, intact sensation, cranial nerves III-XII normal PSYCHIATRIC: Normal mood and affect LABORATORY DATA: Please see below. IMAGING: CT ABD/PEL W/IV CONTRAST ONLY Impression: The left transverse and the descending colon are collapsed but appear to be diffusely thickened suggesting colitis. No free air or free fluid. No bowel obstruction. PROGNOSIS: Fair ACTIVITY: As tolerated DIET: Soft diet DISCHARGE PLAN: After discharge, patient will continue 3 more days of PO cipro a nd flagyl starting 11/23 and last dose on 11/25 (5 day course). She will continue to hold her coumadin for 5-7 days, continue soft diet, and follow up with her PCP to determine the need to restart anticoagulation upon re-evaluate her hematochezia and INR. If bleeding resolves, she can be restarted on coumadin. However, patient will still need outpatient colonoscopy with GI to confirm the cause of rectal bleeding after her colitis resolves to r/o other causes. DISPOSITION: Home DISCHARGE INSTRUCTIONS: 1. Please continue to take ciprofloxacin and metronidazole for 3 more days 2. Stop taking your Coumadin for the next 5-7 days 3. Please follow soft diet for the next few days and advance diet as tolerated. 4. Please follow up with your primary care physician for the next 5-7 days to discuss restarting Coumadin 5. Please return to the emergency department if new symptoms develop or worsens. ITEMS TO FOLLOWUP ON ON OUTPATIENT: 1. None DISCHARGE CONDITION: Stable TIME SPENT ON DISCHARGE: Greater than 30 minutes. Vital Signs/I&Os Vital Signs Date Time Temp Pulse Resp B/P (MAP) Pulse Ox O2 Delivery O2 Flow Rate FiO2 11/22/20 06:00 97.5 82 18 118/66 (83) 98 Room Air I&O- Last 24 Hours up to 6 AM 11/22/20 05:59 Intake Total 1250 ml Output Total 1550 ml Balance -300 ml Laboratory Data Labs 24H Laboratory Tests 2 11/21/20 11:01: Lab Scanned Report Miscellaneous Lab 11/21/20 11:13: Bedside Glucose (Misc Panel) 142H 11/21/20 16:22: Clostridium difficile [id number] PRESUMPTIVE NEGATIVE, Clostridium difficile Toxin (PCR) NEGATIVE 11/21/20 16:35: Bedside Glucose (Misc Panel) 133H 11/21/20 22:09: Bedside Glucose (Misc Panel) 148H 11/22/20 05:52: Immature Granulocyte % (Auto) 0.4, Neutrophils (%) (Auto) 72.4H, Lymphocytes (%) (Auto) 17.4L, Monocytes (%) (Auto) 5.3, Eosinophils (%) (Auto) 3.9H, Basophils (%) (Auto) 0.6, Neutrophils # (Auto) 5.0, Lymphocytes # (Auto) 1.2L, Monocytes # (Auto) 0.4, Eosinophils # (Auto) 0.3, Basophils # (Auto) 0.0, Nucleated Red Blood Cells % (auto) 0.0, Prothrombin Time 25.0H, Prothromb Time International Ratio 2.20, Activated Partial Thromboplast Time 53.6H, Anion Gap 6L, Glomerular Filtration Rate > 60.0, Calcium Level 9.9 CBC/BMP Laboratory Tests 11/22/20 05:52 FSBS Laboratory Tests Test 11/21/20 11:13 11/21/20 16:35 11/21/20 22:09 Range/Units Bedside Glucose (Misc Panel) 142 133 148 80-115 MG/DL Discharge Medications Scheduled Allopurinol (Zyloprim) 300 Mg Tablet, 300 MG PO QPM, (Reported) Baclofen (Baclofen) 20 Mg Tablet, 20 MG PO QHS, (Reported) Benazepril HCl (Benazepril HCl) 10 Mg Tablet, 10 MG PO DAILY, (Reported) Cholecalciferol (Vitamin D3) (Vitamin D3) 125 Mcg Capsule, 5,000 UNITS PO DAILY, (Reported) Ciprofloxacin HCl (Ciprofloxacin HCl) 250 Mg Tablet, 2 TAB PO BID Duloxetine Hcl (Duloxetine HCl) 30 Mg Capsule.dr, 30 MG PO TID, (Reported) Empagliflozin (Jardiance) 25 Mg Tablet, 25 MG PO DAILY, (Reported) Exenatide Microspheres (Bydureon Bcise) 2 Mg/0.85 Ml Auto.injct, 2 MG SC QWEEK, (Reported) MONDAYS Ezetimibe (Ezetimibe) 10 Mg Tablet, 10 MG PO QPM, (Reported) Fenofibric Acid (Choline) (Fenofibric Acid) 135 Mg Capsule.dr, 135 MG PO QPM, (Reported) Gabapentin (Gabapentin) 300 Mg Capsule, 300 MG PO BID, (Reported) TAKES AT AM/NOON Gabapentin (Gabapentin) 300 Mg Capsule, 600 MG PO QHS, (Reported) Insulin Glargine,Hum.rec.anlog (Toujeo Solostar) 300 Unit/1 Ml Insuln.pen, 80 UNIT SC DAILY, (Reported) Insulin Lispro (Humalog Kwikpen U-100) 100 Unit/1 Ml Insuln.pen, 1 DOSE SC AC, (Reported) PER SLIDING SCALE Levothyroxine Sodium (Levothyroxine Sodium) 137 Mcg Tablet, 137 MCG PO QAM, (Reported) Metformin HCl (Metformin HCl) 1,000 Mg Tablet, 1,000 MG PO BID, (Reported) Metronidazole (Flagyl) 500 Mg Tablet, 500 MG PO BID for colitis Pioglitazone HCl (Pioglitazone HCl) 15 Mg Tablet, 15 MG PO DAILY, (Reported) Pramipexole Di-HCl (Pramipexole Dihydrochloride) 1 Mg Tablet, 1 MG PO BID, (Reported) TAKES AT 1300/HS Quetiapine Fumarate (Quetiapine Fumarate) 50 Mg Tablet, 50 MG PO QHS, (Reported) Spironolactone (Spironolactone) 25 Mg Tablet, 25 MG PO BID, (Reported) Scheduled PRN Acetaminophen (Acetaminophen) 500 Mg Tablet, 1,000 MG PO Q6H PRN for PAIN, (Reported) Docusate Sodium (Colace) 100 Mg Capsule, 100 MG PO BID PRN for CONSTIPATION, (Reported) Temazepam (Temazepam) 30 Mg Capsule, 30 MG PO QHS PRN for RESTLESS LEG, (Report ed) Allergies Coded Allergies: quinine (Unverified Allergy, Unknown, 02/18/20) Gqtgoqk-[id number]-Nmf Reductase Inhibitor (Verified Adverse Reaction, Intermediate, MAKES RLS WORSE, 02/18/20) GME ATTESTATION GME ATTESTATION My faculty preceptor for this patient encounter was physically present during the encounter and was fully available. All aspects of the patient interview, examination, medical decision making process, and medical care plan development were reviewed and approved by the faculty preceptor. The faculty preceptor is aware and concurs with the plan as stated in the body of this note and will attest to such by his/her cosignature. ATTENDING NOTE I, Jeremias Rogers MD, have independently examined this patient and performed my own physical exam, as well as reviewed the documentation and edited where necessary. I have discussed in detail with the resident / student the findings and plan of treatment as documented by the resident / student and edited their note. I agree with their findings and treatment plan and have edited their documentation. Total time spent on this patient including coordination of care, review of chart documentation and actual patient contact is around 35 minutes RIK MURGUIA OMS-3 Nov 22, 2020 11:40 JEREMIAS ROGERS MD Nov 24, 2020 15:52
[2020-11-22] MEDS ORDERED: CIPR250T3 PO (16:11)
== END 2020-11-22 16:20 | disposition home or self-care (01) | DRG 392 ==
LOC: M ED 09:12 → M ED INP 13:56 → ENRESERV 14:34 → M MS5PR 15:55 → OBSVTOIN 11-21 18:45
PROVIDERS: ADMIT Internal Medicine; ATTEND Internal Medicine
DX: K52.9 Noninfective gastroenteritis and colitis, unspecified (principal); K92.1 Melena; E11.9 Type 2 diabetes mellitus without complications; I10 Essential (primary) hypertension; M35.00 Sjogren syndrome, unspecified; E03.9 Hypothyroidism, unspecified; G25.81 Restless legs syndrome; F32.9 Major depressive disorder, single episode, unspecified; F41.9 Anxiety disorder, unspecified; M10.9 Gout, unspecified; M79.7 Fibromyalgia; Z86.718 Personal history of other venous thrombosis and embolism; Z86.711 Personal history of pulmonary embolism; G47.33 Obstructive sleep apnea (adult) (pediatric); Z79.01 Long term (current) use of anticoagulants; Z79.4 Long term (current) use of insulin; Z79.899 Other long term (current) drug therapy; Z88.8 Allergy status to other drugs, medicaments and biological substances; E78.5 Hyperlipidemia, unspecified

== ENCOUNTER → 2020-11-28 | Outpatient (CLI) | payer MEDICARE, OTHER ==
[~2020-11-28] MED LIST changes: +ACET-683 PO; +BYDU2INJ7 SC; +CIPR250T3 PO; +CIPR500S PO; +COLA100C5 PO; +D3 U5000 PO; +EZET10TA21 PO; +FLAG500T PO; +JARD1TAB3 PO; +PRAM1TAB7 PO; +QUET50TA3 PO; +TEMA30CA PO; +ZYLO300T6 PO
--- NOTE | 2020-11-30 07:22 | ECWPNPC ---
PATIENT NAME: CANDIS SCHNEIDER : 1955 GENDER: FEMALE VISIT DATE: 11/28/2020 DISCHARGE DATE: 11/28/20 1352 VISIT LOCKED DATE TIME: PHYSICIAN: JACKIE FOSTER RESOURCE: JACKIE FOSTER REASON FOR APPOINTMENT 1. RHEUMATOID ARTHRITIS HISTORY OF PRESENT ILLNESS PAIN CENTER INTAKE QUESTIONS: 64-YEAR-OLD FEMALE IN FOR CHRONIC PAIN FOLLOW-UP. SHE FEELS HER MEDICATIONS ARE HELPFUL AND DENIES MED SIDE EFFECTS AT THIS TIME. SHE DOES ADMIT TO INCREASED PAIN RECENTLY BUT FEELS THAT THAT IS RELATED TO THE WEATHER. GENERAL: -. FALL RISK SCREENING: SCREENING ONE FALLS REPORTED IN THE LAST YEAR WITH INJURY. PATIENT DID NOT SEEK IMMEDIATE MEDICAL TREATMENT.. PAIN SCREENING: PATIENT HAS A COMPLAINT OF ACUTE OR CHRONIC PAIN :YES LOCATION OF PAIN:OTHER: GENERALIZED PAIN, MORE PRONOUNCED BILATERAL HANDS. INTENSITY OF PAIN (SCALE OF 1 TO 10):7 7 ALL OVER WITH 8 IN HANDS. WHAT DOES YOUR PAIN FEEL LIKE:ACHING, CONTINOUS DURATION:CONTINOUS PAIN IS INCREASED BY:ACTIVITIES, PROLONGED STANDING PAIN IS DECREASED BY:OTHERS NOTHING HELPS ALLEVIATE THE PAIN NURSING NOTE: -. CURRENT MEDICATIONS TAKING COUMADIN 2.5 MG TABLET ORALLY DIRECTED TAKING SPIRONOLACTONE 25 MG TABLET ORALLY TWICE A DAY TAKING BENAZEPRIL HCL 10 MG TABLET ORALLY DAILY TAKING TRILIPIX 135 MG CAPSULE DELAYED RELEASE ORALLY ONCE A DAY TAKING METFORMIN 1000 MG BID TAKING ZETIA 10 MG TABLET ORALLY ONCE A DAY TAKING LEVOTHROYXINE 137 MCG DAILY TAKING BACLOFEN 20 MG TABLET 1 TABLET WITH FOOD OR MILK ORALLY DAILY TAKING VITAMIN D 125 MCG (5000 UT) CAPSULE 1 CAPSULE ORALLY ONCE A DAY TAKING TOUJEO INSULIN INJECTION 300 ML , NOTES: 80 UNITS DAILY TAKING BYDUREON 2MG/VIAL ONCE WEEKLY TAKING ACTOS 15 MG TABLET 1 TABLET ORALLY ONCE A DAY TAKING JARDIANCE 25 MG TABLET 1 TABLET ORALLY ONCE A DAY TAKING CYMBALTA 30 MG CAPSULE DELAYED RELEASE PARTICLES ORALLY THREE TIMES DAILY TAKING ALLOPURINOL 300 MG TABLET 1 CAP ORALLY DAILY TAKING HUMALOG 100 UNIT/ML SOLUTION DIRECTED SUBCUTANEOUS TAKING MIRAPEX 1 MG TABLET ORALLY BID TAKING RESTORIL 30 MG CAPSULE 1 CAPSULE AT BEDTIME NEEDED ORALLY ONCE A DAY, NOTES: FOR RESTLESS LEG SYNDROME TAKING EXTRA STRENGTH ACETAMINOPHEN 500 MG CAPSULE 2 CAPS ORALLY EVERY 6 HRS NEEDED TAKING STOOL SOFTENER 100 MG CAPSULE 1 CAPSULE NEEDED ORALLY ONCE A DAY TAKING QUETIAPINE FUMARATE 50 MG TABLET 1 TABLET AT BEDTIME ORALLY ONCE A DAY TAKING GABAPENTIN 300 MG CAPSULE 1 CAPSULE IN AM, AFTERNOON, AND 2 AT BEDTIME ORALLY TID UNKNOWN SERTRALINE HCL 100 MG TABLET ORALLY DAILY UNKNOWN MAY HAVE - - MEDICAL MARIJUANA DAILY NEEDED, NOTES: DISRUPTED PT/INR UNKNOWN KEVZARA 200 MG/1.14ML SOLUTION AUTO-INJECTOR 1.14 ML SUBCUTANEOUS , NOTES: ON HOLD OF 04/16/2018 MEDICATION LIST REVIEWED AND RECONCILED WITH THE PATIENT PAST MEDICAL HISTORY HYPERTENSION HYPERLIPIDEMIA TYPE 2 DIABETES RHEUMATHOID ARTHRITIS DEPRESSION AND ANXIETY RESTLESS LEG SYNDROME SLEEP APNEA FIBROMYALGIA GOUT HYPOTHYROID DVT LEFT UPPER LEG PULMONARY EMBOLISM BILATERAL CARPAL TUNNEL COLITIS ALLERGIES QUININE SULFATE: NAUSEA/VOMITING STATINS: EXACERBATES RESTLESS LEGS - SIDE EFFECTS SURGICAL HISTORY OPENED REDUCTION OF FRACTURED KNEE CAP- LEFT 07/1984 ARTHROSCOPY LEFT KNEE 08/1987 ARTHROSCOPY LEFT KNEE 08/1994 TOTAL KNEE REPLACEMENT-LEFT 10/2001 CHOLECYSTECTOMY 08/1979 PARATHYROIDECTOMY OF ONE GLAND 12/2012 APPENDECTOMY 04/2017 SOCIAL HISTORY GENERAL: TOBACCO USE ARE YOU A:FORMER SMOKER HOW LONG HAS IT BEEN SINCE YOU LAST SMOKED?> 10 YEARS LATEX QUESTIONNAIRE LATEX ALLERGY : HAVE YOU EVER DEVELOPED ANY TYPE OF REACTION AFTER HANDLING LATEX PRODUCTS SUCH RUBBER GLOVES, CONDOMS, DIAPHRAGMS, BALLOONS, SOCKS, OR UNDERWEAR?NO LATEX ALLERGY : HAVE YOU EVER DEVELOPED ANY TYPE OF REACTION DURING OR AFTER DENTAL APPOINTMENT, VAGINAL/RECTAL EXAMINATION, SURGICAL PROCEDURE, OR ANY OTHER EXPOSURE?NO LATEX RISK : HAVE YOU EVER HAD ANY DIFFICULTY BREATHING OR HIVES AFTER EATING OR HANDLING ANY FRUITS, OR VEGETABLES; SUCH KIWI, BANANAS, STONE FRUITS, OR CHESTNUTSNO LATEX RISK : DO YOU HAVE A PREVIOUS PERSONAL HISTORY OF MORE THAN NINE SURGERIES, SPINA BIFIDA, OR REPEATED CATHERIZATIONS? NO LATEX RISK : ARE YOU FREQUENTLY EXPOSED TO LATEX PRODUCTS IN YOUR OCCUPATION?NO DATE ASKED : 11/28/2020 ALCOHOL USE: NO. ALCOHOL SCREENING DID YOU HAVE A DRINK CONTAINING ALCOHOL IN THE PAST YEAR?YES HOW OFTEN DID YOU HAVE SIX OR MORE DRINKS ON ONE OCCASION IN THE PAST YEAR?NEVER (0 POINTS) HOW MANY DRINKS DID YOU HAVE ON A TYPICAL DAY WHEN YOU WERE DRINKING IN THE PAST YEAR?1 OR 2 (0 POINTS) HOW OFTEN DID YOU HAVE A DRINK CONTAINING ALCOHOL IN THE PAST YEAR?MONTHLY OR LESS (1 POINT) POINTS1 INTERPRETATIONNEGATIVE RECREATIONAL DRUG USE DRUG USE?NO CAFFEINE CAFFEINE USE?YES HOW OFTEN AND HOW MUCH? 2 CUPS IN THE AM PROTESTANT [id number] OTHER NONE LANGUAGE LANGUAGES SPOKEN:SAMMARINESE EDUCATION LEVEL OF EDUCATION:COLLEGE LEARNING BARRIERS / SPECIAL NEEDS CHANGE FROM LAST VISIT?NO BARRIERS TO LEARNING?NO HEARING IMPAIRED?NO VISION IMPAIRED?YES :CORRECTIVE LENSES COGNITIVELY IMPAIRED?NO READINESS TO LEARN?YES LEARNING PREFERENCES?YES :DEMONSTRATION/VERBAL INSTRUCTION LEARNING CAPABILITIES PRESENT?YES EMOTIONAL BARRIERS?NO SPECIAL DEVICES?YES :CANE DATABASE TECHNICIAN NEEDED?NO DOMESTIC VIOLENCE DO YOU FEEL SAFE IN YOUR ENVIRONMENT?YES DIET: REGULAR, CARBOHYDRATE CONTROLLED. EXERCISE: WALKS. MARITAL STATUS: SINGLE. OTHERS AT HOME: NONE. - HAS THE PATIENT BEEN EDUCATED REGARDING HIS/HER PLAN OF CARE?YES HAS THE PATIENT BEEN EDUCATED REGARDING PAIN, THE RISK FOR PAIN, THE IMPORTANCE OF EFFECTIVE PAIN MANAGEMENT, AND THE PAIN ASSESSMENT PROCESS?YES HOUSING: OWNS HOME. ADVANCE DIRECTIVE ADVANCE DIRECTIVE DISCUSSED WITH PATIENT:YES HCP IS LAURENERFernando SCHNEIDER REVIEWED WITH PT 02/26/19 1015 BVREVIEWED WITH PATIENT 03/19/19 1033 NLJREVIEWED WITH PATIENT 04/16/19 1037 BVREVIEWED WITH PATIENT 06/23/19 1110 09/23/19 1325 REVIEWED WITH PT. AD. HOSPITALIZATION/MAJOR DIAGNOSTIC PROCEDURE PNEUMONIA 01/2015 R/O STROKE 10/2015 DEEP VEIN THROMBOSIS 1988 DVT WITH PULMONARY EMBOLISM 2010 GI BLEED 11/19/2020 REVIEW OF SYSTEMS CONSTITUTIONAL: ANY RECENT FEVER NO . CHILLS NO . WEIGHT CHANGE OF UNKNOWN REASONS NO . GASTROENTEROLOGY: NEW UNEXPLAINABLE CHANGES IN BOWEL CONTROL NO . CONSTIPATION NO . GENITOURINARY: ANY NEW CHANGE IN BLADDER CONTROL? NO . NEUROLOGY: NEW ONSET DIZZINESS OR NEUROLOGICAL CHANGES NOT MENTIONED NO . NEW NUMBNESS OR PAIN PATTERNS NOT MENTIONED AND PERTINENT TO TODAY'S VISIT NO . CARDIOLOGY: NEW CHEST PRESSURE NO . PATIENT DENIES NO . RESPIRATORY: UNEXPLAINABLE COUGH NO . NEW SHORTNESS OF BREATH NO . VITAL SIGNS WT 293.4 LBS, HT 5'4", BMI 50.36 INDEX, BP 131/61 MM HG, HR 84 /MIN, RR 20 /MIN, TEMP 97.2 F, OXYGEN SAT % 97%, SAFE IN ENV? (Y/N) YES, NA INITIALS SC 13:38, REVIEWED BY: ELSA CA MA. EXAMINATION GENERAL EXAMINATION: GENERALNO ACUTE DISTRESS, WELL NOURISHED AND HYDRATED. PSYCHAPPROPRIATE MOOD AND AFFECT . LUNGS:CLEAR TO AUSCULTATION BILATERALLY, NO WHEEZES, RHONCHI, RALES. HEART:NO MURMURS, REGULAR RATE AND RHYTHM. ASSESSMENTS RHEUMATOID ARTHRITIS INVOLVING MULTIPLE SITES WITH POSITIVE RHEUMATOID FACTOR - M05.79 (PRIMARY), RISK: (NULL) TREATMENT RHEUMATOID ARTHRITIS INVOLVING MULTIPLE SITES WITH POSITIVE RHEUMATOID FACTOR CONTINUE GABAPENTIN CAPSULE, 300 MG, 1 CAPSULE IN AM, AFTERNOON, AND 2 AT BEDTIME, ORALLY, TID, 90 DAYS, 360 NOTES: 64-YEAR-OLD FEMALE IN FOR CHRONIC PAIN FOLLOW-UP. GIVEN PRESENTING SYMPTOMS RECOMMENDED CONTINUATION OF CURRENT MEDICATION REGIMEN WITH FOLLOW-UP IN 3 MONTHS. DISCUSSED POTENTIALLY CHANGING PATIENT'S MEDICATION AND AT THIS TIME IT WAS DECIDED WE WILL KEEP WITH CURRENT REGIMEN. PATIENT HAS EXPRESSED UNDERSTANDING OF AND WAS IN AGREEMENT WITH TREATMENT PLAN. GIVEN TIME TO ASK QUESTIONS AND EXPRESS CONCERNS. PROCEDURE CODES FA211 ESTABILISHED PATIENT [facility] CHARGE DISPOSITION & COMMUNICATION FOLLOW UP 3 MONTHS (REASON: RHEUMATOID ARTHRITIS ) ELECTRONICALLY SIGNED BY HARI NERI ON 11/29/2020 AT 09:08 AM EDT DISCLAIMER : THIS IS A VISIT SUMMARY EXTRACTED FROM THE [employer] CHART. IT IS NOT A COPY OF THE [employer] PROGRESS NOTE. MTDD
== END ==
LOC: M PAIN 13:30
PROVIDERS: ATTEND Family Medicine
DX: M05.79 Rheumatoid arthritis with rheumatoid factor of multiple sites without organ or systems involvement (principal); G89.29 Other chronic pain; E11.9 Type 2 diabetes mellitus without complications; G25.81 Restless legs syndrome; G47.30 Sleep apnea, unspecified; M79.7 Fibromyalgia; E03.9 Hypothyroidism, unspecified; Z86.711 Personal history of pulmonary embolism; Z86.718 Personal history of other venous thrombosis and embolism; Z86.59 Personal history of other mental and behavioral disorders; Z87.891 Personal history of nicotine dependence; Z88.8 Allergy status to other drugs, medicaments and biological substances; E66.01 Morbid (severe) obesity due to excess calories; Z68.43 Body mass index [BMI] 50.0-59.9, adult; Z79.4 Long term (current) use of insulin; Z79.899 Other long term (current) drug therapy

== ENCOUNTER → 2020-12-04 | Outpatient (CLI) | payer MEDICARE, OTHER ==
[2020-12-04 14:53] LABS: CALCIUM LEVEL 11.7 MG/DL (8.8-10.2); PHOSPHORUS LEVEL 2.3 MG/DL (2.5-4.9)
[2020-12-04 14:59] LABS: TOTAL 25(OH) VITAMIN D 25.9 NG/ML (30.0-100.0)
[2020-12-04 15:00] LABS: PTH INTACT 99.1 PG/ML (18.5-88.0)
== END ==
LOC: M PLALAB 12:04
PROVIDERS: ATTEND Nurse Practitioner Family
DX: E83.52 Hypercalcemia (principal)

== ENCOUNTER → 2021-01-19 | Outpatient (CLI) | payer MEDICARE, OTHER ==
[~2021-01-19] MED LIST changes: +GABA-283 PO; -GABA-845 PO
--- NOTE | 2021-01-19 13:31 | REP ---
INDICATION: ELEVATED PARATHYROID, ELEVATED CALCIUM. COMPARISON: 11/08/2013. TECHNIQUE/RADIOTRACER AND DOSE: Following the intravenous administration of 25.9 mCi technetium 99 M sestamibi, 15 minutes and 3 hour delayed images are performed in multiple projections, with SPECT imaging. FINDINGS: The 3 hour delayed images there is mild focal ill-defined persistent increased uptake in the region of the right thyroid bed. This is suggestive of a right-sided parathyroid adenoma. IMPRESSION: There are findings suggestive of a right-sided parathyroid adenoma. <Electronically signed by Otis Chaney > 01/19/21 6339
== END ==
LOC: M RAD 07:51
PROVIDERS: ATTEND Nurse Practitioner Family
DX: E83.52 Hypercalcemia (principal); E21.4 Other specified disorders of parathyroid gland
CPT/HCPCS: 78070; 78803; A9500

== ENCOUNTER → 2021-02-13 | Outpatient (CLI) | payer MEDICARE, OTHER ==
[2021-02-13 13:48] LABS: INR 1.78; PROTHROMBIN TIME 21.1 SECONDS (12.5-14.3)
[2021-02-13 13:49] LABS: PARTIAL THROMBOPLASTIN TIME 36.8 SECONDS (24.2-38.5)
[2021-02-13 14:11] LABS: ALBUMIN 3.8 GM/DL (3.2-5.2); ALT/SGPT 45 U/L (12-78); BILIRUBIN,DIRECT 0.1 MG/DL (0.0-0.2); BILIRUBIN,TOTAL 0.4 MG/DL (0.2-1.0); FERRITIN 70 NG/ML (8-252); HEPATITIS B SURFACE ANTIBODY NEGATIVE (POSITIVE); IRON (FE) 66 UG/DL (50-170); PERCENT SATURATION 15.9 % (13.2-45.0); TOTAL IRON BINDING CAPACITY 415 UG/DL (250-450); TOTAL PROTEIN 6.8 GM/DL (6.4-8.2)
[2021-02-13 14:22] LABS: HEPATITIS B SURFACE ANTIGEN NEGATIVE (NEGATIVE)
[2021-02-13 14:51] LABS: HEPATITIS A ANTIBODY IGM NEGATIVE (NEGATIVE)
[2021-02-15 01:07] LABS: ALPHA 1 ANTITRYPSIN 115 mg/dL (101-187); ANTI DOUBLE STRAND-DNA AB <1 IU/mL (0-9); ANTI-MITOCHONDRIAL ANTIBODY <20.0 Units (0.0-20.0); ANTI-SMOOTH MUSCLE ANTIBODY 4 Units (0-19); ANTINUCLEAR ANTIBODIES DIRECT Positive (Negative); CERULOPLASMIN 21.4 mg/dL (19.0-39.0); HEPATITIS A IgG TOTAL Positive (Negative); RNP ANTIBODIES 0.4 AI (0.0-0.9); SJOGREN'S ANTI SS-A >8.0 AI (0.0-0.9); SJOGREN'S ANTI SS-B 2.6 AI (0.0-0.9); SMITH ANTIBODIES <0.2 AI (0.0-0.9); TISSUE TRANSGLUTAMINASE IgA <2 U/mL (0-3)
[2021-02-15 14:00] LABS: ALBUMIN % 60.3 % (55.8-66.1); ALPHA-1-GLOBULINS 0.27 GM/DL (0.17-0.41); ALPHA-2-GLOBULINS 0.65 GM/DL (0.42-0.99); ALPHA-2-GLOBULINS % 9.5 % (7.1-11.8); BETA-1-GLOBULINS 0.56 GM/DL (0.28-0.60); BETA-1-GLOBULINS % 8.2 % (4.7-7.2); BETA-2-GLOBULINS 0.43 GM/DL (0.19-0.55); BETA-2-GLOBULINS % 6.3 % (3.2-6.5); GAMMA GLOBULIN % 11.7 % (11.1-18.8)
== END ==
LOC: M PLALAB 09:20
PROVIDERS: ATTEND Nurse Practitioner Family
DX: K92.1 Melena (principal); Z79.899 Other long term (current) drug therapy

== ENCOUNTER → 2021-02-27 | Outpatient (CLI) | payer MEDICARE, OTHER ==
[~2021-02-27] MED LIST changes: +ALLO10TA PO; +FLUC50TA2 PO
--- NOTE | 2021-03-01 04:30 | ECWPNPC ---
PATIENT NAME: CANDIS SCHNEIDER : 1955 GENDER: FEMALE VISIT DATE: 02/27/2021 DISCHARGE DATE: 02/27/21 1416 VISIT LOCKED DATE TIME: PHYSICIAN: JACKIE FOSTER RESOURCE: JACKIE FOSTER REASON FOR APPOINTMENT 1. RHEUMATOID ARTHRITIS HISTORY OF PRESENT ILLNESS GENERAL: HPI 65-YEAR-OLD FEMALE IN FOR CHRONIC PAIN FOLLOW-UP. SHE FEELS HER MEDICATION IS WORKING WELL AND DENIES MED SIDE EFFECTS AT THIS TIME. SHE RATES HER PAIN CURRENTLY AT A 7 OUT OF 10 AND DESCRIBES IT ACHING AND CONTINUOUS.. -. FALL RISK SCREENING: SCREENING : NO FALLS REPORTED IN THE LAST YEAR. PAIN SCREENING: PATIENT HAS A COMPLAINT OF ACUTE OR CHRONIC PAIN :YES LOCATION OF PAIN:OTHER: GENERALIZED INTENSITY OF PAIN (SCALE OF 1 TO 10):7 WHAT DOES YOUR PAIN FEEL LIKE:ACHING, CONTINOUS, OTHER FATIGUE DURATION:CONTINOUS, CONSTANT, AWAKENS FROM SLEEP PAIN IS INCREASED BY:ACTIVITIES, PROLONGED STANDING PAIN IS DECREASED BY:USE OF PAIN MEDICATIONS, SITTING NURSING NOTE: -. PAIN CENTER INTAKE QUESTIONS: DO YOU HAVE A HISTORY OF MRSA? :NO DO YOU TAKE A BLOOD THINNERS? :YES COUMADIN DO YOU HAVE ANY BLEEDING DISORDERS? :NO ANY NEW NUMBNESS OR WEAKNESS IN YOUR LEGS OR ARMS? :NO ANY PACEMAKER,DEFIBRILLATOR, OR DORSAL COLUMN STIMULATOR? :NO DO YOU HAVE ANY RASHES OR OPEN SORES? :NO ARE YOU ALLERGIC TO IV DYE? :NO ARE YOU DIABETIC? :YES ANY NEW PROBLEMS WITH YOUR MEDICATIONS? :NO HAVE YOU RECEIVED A VACCINE IN THE PAST 30 DAYS? :NO DO YOU PLAN TO RECEIVE A VACCINE IN THE NEXT 21 DAYS? :NO DO YOU NEED ANY PRESCRIPTION? :YES GABAPENTIN DO YOU TAKE ANY IMMUNOSUPPRESSIVE MEDICATIONS? :NO ANY HISTORY OF SEIZURES? :NO ANY HISTORY OF CARDIAC ISSUES OR EVENTS? :YES HISTORY OF DVT AND PE DO YOU HAVE SLEEP APNEA? :YES DO YOU WEAR A CPAP?YES ANY RECENT HEAD INJURY? :NO DO YOU HAVE ANY NEW INFECTIONS? :NO IS THERE A CHANCE YOU COULD BE ? :NO ARE YOU BREAST FEEDING? :NO CURRENT MEDICATIONS TAKING GABAPENTIN 300 MG CAPSULE 1 CAPSULE IN AM, AFTERNOON, AND 2 AT BEDTIME ORALLY TID TAKING COUMADIN 2.5 MG TABLET ORALLY DIRECTED TAKING SPIRONOLACTONE 25 MG TABLET ORALLY TWICE A DAY TAKING BENAZEPRIL HCL 10 MG TABLET ORALLY DAILY TAKING TRILIPIX 135 MG CAPSULE DELAYED RELEASE ORALLY ONCE A DAY TAKING METFORMIN 1000 MG BID TAKING ZETIA 10 MG TABLET ORALLY ONCE A DAY TAKING LEVOTHROYXINE 137 MCG DAILY TAKING BACLOFEN 20 MG TABLET 1 TABLET WITH FOOD OR MILK ORALLY DAILY TAKING VITAMIN D 125 MCG (5000 UT) CAPSULE 1 CAPSULE ORALLY ONCE A DAY TAKING TOUJEO INSULIN INJECTION 300 ML , NOTES: 80 UNITS DAILY TAKING BYDUREON 2MG/VIAL ONCE WEEKLY TAKING ACTOS 15 MG TABLET 1 TABLET ORALLY ONCE A DAY TAKING JARDIANCE 25 MG TABLET 1 TABLET ORALLY ONCE A DAY TAKING CYMBALTA 30 MG CAPSULE DELAYED RELEASE PARTICLES ORALLY THREE TIMES DAILY TAKING ALLOPURINOL 300 MG TABLET 1 CAP ORALLY DAILY TAKING HUMALOG 100 UNIT/ML SOLUTION DIRECTED SUBCUTANEOUS TAKING MIRAPEX 1 MG TABLET ORALLY BID TAKING RESTORIL 30 MG CAPSULE 1 CAPSULE AT BEDTIME NEEDED ORALLY ONCE A DAY, NOTES: FOR RESTLESS LEG SYNDROME TAKING EXTRA STRENGTH ACETAMINOPHEN 500 MG CAPSULE 2 CAPS ORALLY EVERY 6 HRS NEEDED TAKING STOOL SOFTENER 100 MG CAPSULE 1 CAPSULE NEEDED ORALLY ONCE A DAY TAKING QUETIAPINE FUMARATE 50 MG TABLET 1 TABLET AT BEDTIME ORALLY ONCE A DAY TAKING FLUCONAZOLE 150 MG TABLET 1 TABLET ORALLY WEEKLY UNKNOWN SERTRALINE HCL 100 MG TABLET ORALLY DAILY UNKNOWN MAY HAVE - - MEDICAL MARIJUANA DAILY NEEDED, NOTES: DISRUPTED PT/INR UNKNOWN KEVZARA 200 MG/1.14ML SOLUTION AUTO-INJECTOR 1.14 ML SUBCUTANEOUS , NOTES: ON HOLD OF 04/16/2018 MEDICATION LIST REVIEWED AND RECONCILED WITH THE PATIENT PAST MEDICAL HISTORY HYPERTENSION HYPERLIPIDEMIA TYPE 2 DIABETES RHEUMATHOID ARTHRITIS DEPRESSION AND ANXIETY RESTLESS LEG SYNDROME SLEEP APNEA FIBROMYALGIA GOUT HYPOTHYROID DVT LEFT UPPER LEG PULMONARY EMBOLISM BILATERAL CARPAL TUNNEL COLITIS ALLERGIES QUININE SULFATE: NAUSEA/VOMITING STATINS: EXACERBATES RESTLESS LEGS - SIDE EFFECTS SOCIAL HISTORY GENERAL: TOBACCO USE ARE YOU A:FORMER SMOKER HOW LONG HAS IT BEEN SINCE YOU LAST SMOKED?> 10 YEARS LATEX QUESTIONNAIRE LATEX ALLERGY : HAVE YOU EVER DEVELOPED ANY TYPE OF REACTION AFTER HANDLING LATEX PRODUCTS SUCH RUBBER GLOVES, CONDOMS, DIAPHRAGMS, BALLOONS, SOCKS, OR UNDERWEAR?NO LATEX ALLERGY : HAVE YOU EVER DEVELOPED ANY TYPE OF REACTION DURING OR AFTER DENTAL APPOINTMENT, VAGINAL/RECTAL EXAMINATION, SURGICAL PROCEDURE, OR ANY OTHER EXPOSURE?NO LATEX RISK : HAVE YOU EVER HAD ANY DIFFICULTY BREATHING OR HIVES AFTER EATING OR HANDLING ANY FRUITS, OR VEGETABLES; SUCH KIWI, BANANAS, STONE FRUITS, OR CHESTNUTSNO LATEX RISK : DO YOU HAVE A PREVIOUS PERSONAL HISTORY OF MORE THAN NINE SURGERIES, SPINA BIFIDA, OR REPEATED CATHERIZATIONS? NO LATEX RISK : ARE YOU FREQUENTLY EXPOSED TO LATEX PRODUCTS IN YOUR OCCUPATION?NO DATE ASKED : 02/27/2021 ALCOHOL USE: NO. ALCOHOL SCREENING DID YOU HAVE A DRINK CONTAINING ALCOHOL IN THE PAST YEAR?YES HOW OFTEN DID YOU HAVE SIX OR MORE DRINKS ON ONE OCCASION IN THE PAST YEAR?NEVER (0 POINTS) HOW MANY DRINKS DID YOU HAVE ON A TYPICAL DAY WHEN YOU WERE DRINKING IN THE PAST YEAR?1 OR 2 (0 POINTS) HOW OFTEN DID YOU HAVE A DRINK CONTAINING ALCOHOL IN THE PAST YEAR?MONTHLY OR LESS (1 POINT) POINTS1 INTERPRETATIONNEGATIVE RECREATIONAL DRUG USE DRUG USE?NO CAFFEINE CAFFEINE USE?YES HOW OFTEN AND HOW MUCH? 2 CUPS IN THE AM MU-ISM [id number] OTHER NONE LANGUAGE LANGUAGES SPOKEN:[place]IZ[place] OF [place] EDUCATION LEVEL OF EDUCATION:COLLEGE LEARNING BARRIERS / SPECIAL NEEDS CHANGE FROM LAST VISIT?NO BARRIERS TO LEARNING?NO HEARING IMPAIRED?NO VISION IMPAIRED?YES :CORRECTIVE LENSES COGNITIVELY IMPAIRED?NO READINESS TO LEARN?YES LEARNING PREFERENCES?YES :DEMONSTRATION/VERBAL INSTRUCTION LEARNING CAPABILITIES PRESENT?YES EMOTIONAL BARRIERS?NO SPECIAL DEVICES?YES :CANE CERTIFIED PERSONAL CHEF NEEDED?NO DOMESTIC VIOLENCE DO YOU FEEL SAFE IN YOUR ENVIRONMENT?YES DIET: REGULAR, CARBOHYDRATE CONTROLLED. EXERCISE: WALKS. MARITAL STATUS: SINGLE. OTHERS AT HOME: NONE. - HAS THE PATIENT BEEN EDUCATED REGARDING HIS/HER PLAN OF CARE?YES HAS THE PATIENT BEEN EDUCATED REGARDING PAIN, THE RISK FOR PAIN, THE IMPORTANCE OF EFFECTIVE PAIN MANAGEMENT, AND THE PAIN ASSESSMENT PROCESS?YES HOUSING: OWNS HOME. ADVANCE DIRECTIVE ADVANCE DIRECTIVE DISCUSSED WITH PATIENT:YES HCP IS LAURENERFernando NELY SCHAEFEROFIELD REVIEWED WITH PT 02/26/19 1015 BVREVIEWED WITH PATIENT 03/19/19 1033 NLJREVIEWED WITH PATIENT 04/16/19 1037 BVREVIEWED WITH PATIENT 06/23/19 1110 09/23/19 1325 REVIEWED WITH PT. AD. REVIEW OF SYSTEMS CONSTITUTIONAL: ANY RECENT FEVER NO . CHILLS NO . WEIGHT CHANGE OF UNKNOWN REASONS NO . GASTROENTEROLOGY: NEW UNEXPLAINABLE CHANGES IN BOWEL CONTROL NO . CONSTIPATION NO . GENITOURINARY: ANY NEW CHANGE IN BLADDER CONTROL? NO . NEUROLOGY: NEW ONSET DIZZINESS OR NEUROLOGICAL CHANGES NOT MENTIONED NO . NEW NUMBNESS OR PAIN PATTERNS NOT MENTIONED AND PERTINENT TO TODAY'S VISIT NO . CARDIOLOGY: NEW CHEST PRESSURE NO . PATIENT DENIES NO . RESPIRATORY: UNEXPLAINABLE COUGH NO . NEW SHORTNESS OF BREATH NO . VITAL SIGNS WT 291 LBS, HT 5'4", BMI 49.94 INDEX, BP 140/66 MM HG, HR 104 /MIN, RR 20 /MIN, TEMP 97.4 F, OXYGEN SAT % 95%, SAFE IN ENV? (Y/N) YES, NA INITIALS SC 14:02, REVIEWED BY: ELSA CA MA. EXAMINATION GENERAL EXAMINATION: GENERALNO ACUTE DISTRESS, WELL NOURISHED AND HYDRATED. PSYCHAPPROPRIATE MOOD AND AFFECT . LUNGS:CLEAR TO AUSCULTATION BILATERALLY, NO WHEEZES, RHONCHI, RALES. HEART:NO MURMURS, REGULAR RATE AND RHYTHM. ASSESSMENTS RHEUMATOID ARTHRITIS INVOLVING MULTIPLE SITES WITH POSITIVE RHEUMATOID FACTOR - M05.79 (PRIMARY) TREATMENT RHEUMATOID ARTHRITIS INVOLVING MULTIPLE SITES WITH POSITIVE RHEUMATOID FACTOR REFILL GABAPENTIN CAPSULE, 300 MG, 1 CAPSULE IN AM, AFTERNOON, AND 2 AT BEDTIME, ORALLY, TID, 90 DAYS, 360, REFILLS 1 NOTES: 65-YEAR-OLD FEMALE IN FOR CHRONIC PAIN FOLLOW-UP. GIVEN PRESENTING SYMPTOMS RECOMMEND CONTINUATION OF CURRENT MEDICATION REGIMEN WITH FOLLOW-UP IN 3 MONTHS. PATIENT HAS EXPRESSED UNDERSTANDING OF AND WAS IN AGREEMENT WITH TREATMENT PLAN. GIVEN TIME TO ASK QUESTIONS AND EXPRESS CONCERNS. PROCEDURE CODES FA211 ESTABILISHED PATIENT [facility] CHARGE DISPOSITION & COMMUNICATION FOLLOW UP 3 MONTHS (REASON: RHEUMATOID ARTHRITIS) ELECTRONICALLY SIGNED BY HARI NERI ON 02/28/2021 AT 02:19 PM EDT DISCLAIMER : THIS IS A VISIT SUMMARY EXTRACTED FROM THE [employer] CHART. IT IS NOT A COPY OF THE [employer] PROGRESS NOTE. MTDD
== END ==
LOC: M PAIN 14:00
PROVIDERS: ATTEND Family Medicine
DX: M05.79 Rheumatoid arthritis with rheumatoid factor of multiple sites without organ or systems involvement (principal); G89.29 Other chronic pain; E11.9 Type 2 diabetes mellitus without complications; G25.81 Restless legs syndrome; G47.30 Sleep apnea, unspecified; M79.7 Fibromyalgia; E03.9 Hypothyroidism, unspecified; Z86.711 Personal history of pulmonary embolism; Z86.718 Personal history of other venous thrombosis and embolism; Z86.59 Personal history of other mental and behavioral disorders; Z87.891 Personal history of nicotine dependence; Z88.8 Allergy status to other drugs, medicaments and biological substances; E66.01 Morbid (severe) obesity due to excess calories; Z68.42 Body mass index [BMI] 45.0-49.9, adult; Z79.01 Long term (current) use of anticoagulants; Z79.4 Long term (current) use of insulin; Z79.899 Other long term (current) drug therapy

== ENCOUNTER → 2021-03-03 | Outpatient (CLI) | payer MEDICARE, OTHER | LOC: M LABSMTC 09:16 | PROVIDERS: ATTEND Anesthesiology | DX: Z20.828 Contact with and (suspected) exposure to other viral communicable diseases (principal); Z11.59 Encounter for screening for other viral diseases ==

== ENCOUNTER 2021-03-08 07:57 | Day surgery (SDC) | payer MEDICARE, OTHER ==
[~2021-03-08] VITALS: Ht 165.1 cm; Wt 123.8 kg
[~2021-03-08 07:57] MED LIST changes: +NS 1,000 ML IV ONE
[2021-03-08] MEDS ORDERED: propofoL 200 MG/20 ML VIAL As Ordered ONE ×2 (08:50→09:03)
[2021-03-08] MEDS ORDERED: LIDOCAINE 2% 100MG/5ML SDV (FOR ANES.) As Ordered ONE (08:50)
--- NOTE | 2021-03-08 09:17 | ROOR ---
Patient Name: Amy Pina Procedure Date: 03/08/2021 8:54 AM Date of : 1955 Age: 65 Room: [facility] Gender: Female Note Status: Finalized Procedure: Colonoscopy Indications: Follow-up of colitis Providers: Lobo Jorgensen Jr, MD Referring MD: YAHIR BARNETT Requesting Provider: Medicines: Propofol per Anesthesia Complications: No immediate complications. Procedure: Pre-Anesthesia Assessment: - Prior to the procedure, a History and Physical was performed, and patient medications and allergies were reviewed. The patient is competent. The risks and benefits of the procedure and the sedation options and risks were discussed with the patient. All questions were answered and informed consent was obtained. Patient identification and proposed procedure were verified by the physician and the nurse in the pre-procedure area and in the procedure room. Mental Status Examination: alert and oriented. Airway Examination: normal oropharyngeal airway and neck mobility. Respiratory Examination: clear to auscultation. CV Examination: normal. ASA Grade Assessment: II - A patient with mild systemic disease. After reviewing the risks and benefits, the patient was deemed in satisfactory condition to undergo the procedure. The anesthesia plan was to use moderate sedation / analgesia (conscious sedation). Immediately prior to administration of medications, the patient was re-assessed for adequacy to receive sedatives. The heart rate, respiratory rate, oxygen saturations, blood pressure, adequacy of pulmonary ventilation, and response to care were monitored throughout the procedure. The physical status of the patient was re-assessed after the procedure. The Colonoscope was introduced through the anus and advanced to the cecum, identified by appendiceal orifice and ileocecal valve. The colonoscopy was performed without difficulty. The patient tolerated the procedure well. The quality of the bowel preparation was adequate. Findings: The rectum, recto-sigmoid colon, descending colon, transverse colon, ascending colon, cecum, appendiceal orifice and ileocecal valve appeared normal. Biopsies for histology were taken with a cold forceps from the right colon, right transverse colon, descending colon and sigmoid colon for evaluation of microscopic colitis. A few small and large-mouthed diverticula were found in the sigmoid colon. Non-bleeding external and internal hemorrhoids were found during endoscopy. The hemorrhoids were Grade II (internal hemorrhoids that prolapse but reduce spontaneously) and Grade III (internal hemorrhoids that prolapse but require manual reduction). Impression: - The rectum, recto-sigmoid colon, descending colon, transverse colon, ascending colon, cecum, appendiceal orifice and ileocecal valve are normal. Biopsied. - Diverticulosis in the sigmoid colon. - Non-bleeding external and internal hemorrhoids. Recommendation: - Discharge patient to home (ambulatory). - Repeat colonoscopy in 10 years for screening purposes. Procedure Code(s): --- Professional --- 21252, Colonoscopy, flexible; with biopsy, single or multiple Diagnosis Code(s): --- Professional --- K64.2, Third degree hemorrhoids K57.30, Diverticulosis of large intestine without perforation or abscess without bleeding K52.9, Noninfective gastroenteritis and colitis, unspecified CPT copyright 2019 [employer]. All rights reserved. The codes documented in this report are preliminary and upon melter caster review may be revised to meet current compliance requirements. Lobo Jorgensen MD Lobo Jorgensen Jr, MD 03/08/2021 9:17:20 AM Electronically signed by Lobo Jorgensen Jr, MD Number of Addenda: 0 Note Initiated On: 03/08/2021 8:54 AM Estimated Blood Loss: Estimated blood loss: none.
[2021-03-08 09:39] VITALS: BP 130/56
== END 2021-03-08 09:43 | disposition home or self-care (01) ==
LOC: M OPP 07:57
PROVIDERS: ATTEND Surgery
DX: K64.8 Other hemorrhoids (principal); K64.2 Third degree hemorrhoids; K57.30 Diverticulosis of large intestine without perforation or abscess without bleeding; K52.9 Noninfective gastroenteritis and colitis, unspecified; Z79.4 Long term (current) use of insulin; Z79.899 Other long term (current) drug therapy; Z87.891 Personal history of nicotine dependence

== ENCOUNTER → 2021-05-07 | Outpatient (CLI) | payer MEDICARE, OTHER ==
[~2021-05-07] MED LIST changes: -NS 1,000 ML IV ONE; -QUET50TA3 PO; +QUET50TA4 PO
== END ==
LOC: M LABSMTC 09:52
PROVIDERS: ATTEND Surgery
DX: Z20.822 Contact with and (suspected) exposure to COVID-19 (principal)

== ENCOUNTER → 2021-05-30 | Outpatient (CLI) | payer MEDICARE, OTHER | LOC: M PAIN 14:00 | PROVIDERS: ATTEND Anesthesiology | DX: M05.79 Rheumatoid arthritis with rheumatoid factor of multiple sites without organ or systems involvement (principal); G89.29 Other chronic pain; E11.9 Type 2 diabetes mellitus without complications; G47.30 Sleep apnea, unspecified; G25.81 Restless legs syndrome; M79.7 Fibromyalgia; E03.9 Hypothyroidism, unspecified; Z86.59 Personal history of other mental and behavioral disorders; Z86.711 Personal history of pulmonary embolism; Z86.718 Personal history of other venous thrombosis and embolism; Z87.891 Personal history of nicotine dependence; Z88.8 Allergy status to other drugs, medicaments and biological substances; E66.01 Morbid (severe) obesity due to excess calories; Z68.42 Body mass index [BMI] 45.0-49.9, adult; Z79.01 Long term (current) use of anticoagulants; Z79.4 Long term (current) use of insulin; Z79.899 Other long term (current) drug therapy ==

== ENCOUNTER → 2021-06-07 | Outpatient (REF) | payer MEDICARE, OTHER ==
[2021-06-07 17:11] LABS: MALB URINE SIEMENS 5.5 MG/L; MAU/CREAT RATIO 14.1 MCG/MG (0.0-30.0)
== END ==
LOC: M LAB REF 12:58
PROVIDERS: ATTEND Internal Medicine Endocrinology, Diabetes & Metabolism
DX: E11.65 Type 2 diabetes mellitus with hyperglycemia (principal)

== ENCOUNTER → 2021-12-26 | Outpatient (CLI) | payer MEDICARE, OTHER ==
[~2021-12-26] MED LIST changes: -AZAT50TA2 PO; +AZAT50TA37 PO; +FLUC1TAB21 PO; -FLUC50TA2 PO; +HYDR-4278 PO; -HYDR7.5T66 PO
== END ==
LOC: M WHC 12:57
PROVIDERS: ATTEND Physician Assistant
DX: Z12.31 Encounter for screening mammogram for malignant neoplasm of breast (principal); Z78.0 Asymptomatic menopausal state

== ENCOUNTER 2022-10-14 11:50 | Emergency (ER) | payer MEDICARE, OTHER ==
[~2022-10-14] VITALS: Ht 165.1 cm; Wt 136.4 kg
[~2022-10-14 11:50] MED LIST changes: -DOXY-350 PO; +DOXY-444 PO
[2022-10-14] MEDS: MORPHINE 4 MG/ML 1ML VIAL IV PRN ×4 (13:00→21:17)
[2022-10-14 13:40] LABS: BASO # 0.1 10^3/uL (0.0-0.2); BASO % 1.1 % (0.0-1.0); EOS # 0.4 10^3/uL (0.0-0.5); EOS % 7.3 % (0.0-3.0); HEMOGLOBIN 16.1 g/dl (12.0-15.5); LYMPH # 1.3 10^3/uL (1.5-5.0); LYMPH % 24.1 % (24.0-44.0); MEAN CORPUSCULAR HEMOGLOBIN 30.1 pg (27.0-33.0); MEAN CORPUSCULAR HGB CONC 31.6 g/dl (32.0-36.5); MEAN CORPUSCULAR VOLUME 95.5 fl (80.0-96.0); MONO # 0.3 10^3/uL (0.0-0.8); MONO % 5.7 % (2.0-8.0); NEUTROPHILS # 3.3 10^3/uL (1.5-8.5); PLATELET COUNT, AUTOMATED 203 10^3/uL (150-450); RED BLOOD COUNT 5.34 10^6/uL (4.00-5.40); WHITE BLOOD COUNT 5.5 10^3/uL (4.0-10.0)
[2022-10-14 14:09] LABS: ALBUMIN 4.1 G/DL (3.2-5.2); BILIRUBIN,TOTAL 0.6 MG/DL (0.3-1.2); CALCIUM LEVEL 9.9 MG/DL (8.3-10.6); CREATININE FOR GFR 1.06 MG/DL (0.55-1.30); GLOMERULAR FILTRATION RATE 55.6 (>45); POTASSIUM SERUM 4.5 MMOL/L (3.5-5.1)
[2022-10-14 14:22] LABS: RSV AMPLIFICATION NEGATIVE (NEGATIVE)
[2022-10-14 15:39] LABS: TOTAL PROTEIN 7.4 G/DL (5.7-8.2)
[2022-10-14] MEDS ORDERED: PRAMIPEXOLE 1 MG TAB PO STA (17:15)
[2022-10-14] MEDS ORDERED: NS 1,000 ML IV SCH (17:15)
[2022-10-14 21:00] VITALS: BP 109/58
== END 2022-10-14 21:33 | disposition short-term general hospital (02) ==
LOC: EDBD 11:50 → M ED 11:50
DX: S72.351A Displaced comminuted fracture of shaft of right femur, initial encounter for closed fracture (principal); W01.0XXA Fall on same level from slipping, tripping and stumbling without subsequent striking against object, initial encounter; E11.9 Type 2 diabetes mellitus without complications; I10 Essential (primary) hypertension; G43.909 Migraine, unspecified, not intractable, without status migrainosus; Z79.01 Long term (current) use of anticoagulants; Z79.4 Long term (current) use of insulin; Z79.891 Long term (current) use of opiate analgesic; Z79.899 Other long term (current) drug therapy

== ENCOUNTER → 2023-07-09 | Outpatient (CLI) | payer MEDICARE, OTHER ==
[~2023-07-09] MED LIST changes: +ARTIDRO4 OU; +EZET10TA58 PO; -GABA-283 PO; +GABA-284 PO; -HYDR200T3 PO; +HYDR200T46 PO; -POLYOPD OU; -ROPI1TAB3 PO; +ROPI1TAB73 PO; -ZETI10TA16 PO
== END ==
LOC: M RAD 10:46
PROVIDERS: ATTEND Physician Assistant
DX: R68.89 Other general symptoms and signs (principal); R09.89 Other specified symptoms and signs involving the circulatory and respiratory systems

== ENCOUNTER → 2023-09-09 | Outpatient (CLI) | payer MEDICARE, OTHER | LOC: M RAD 13:23 | PROVIDERS: ATTEND Physician Assistant | DX: Z12.2 Encounter for screening for malignant neoplasm of respiratory organs (principal); R06.02 Shortness of breath; F17.211 Nicotine dependence, cigarettes, in remission ==

== ENCOUNTER → 2024-01-07 | Outpatient (CLI) | payer MEDICARE, OTHER ==
[~2024-01-07] MED LIST changes: +DOXY-440 PO; -DOXY-444 PO; -KLON1TAB PO; +KLON1TAB13 PO
== END ==
LOC: M WUC 14:20
PROVIDERS: ATTEND Physician Assistant
DX: M77.31 Calcaneal spur, right foot (principal); M79.671 Pain in right foot

== ENCOUNTER → 2024-01-18 | Outpatient (REF) | payer MEDICARE, OTHER | LOC: M LAB REF 18:30 | PROVIDERS: ATTEND Physician Assistant | DX: A09 Infectious gastroenteritis and colitis, unspecified (principal) ==

== ENCOUNTER 2024-01-20 04:06 | Inpatient (IN) | payer MEDICARE, OTHER ==
[2024-01-20] VITALS (9 sets, daily range): BP systolic 99–121; BP diastolic 50–58; TEMP 97.2–98.1; O2SAT 96–98
[~2024-01-20] VITALS: Ht 165.1 cm; Wt 130.9 kg
[2024-01-20] MEDS ORDERED: ELIQ5TAB PO (04:33)
[2024-01-20 05:51] LABS: BASO % 0.4 % (0.0-1.0); EOS # 0.4 10^3/uL (0.0-0.5); HEMATOCRIT 47.4 % (36.0-47.0); HEMOGLOBIN 15.1 g/dl (12.0-15.5); LYMPH # 1.6 10^3/uL (1.5-5.0); MEAN CORPUSCULAR HEMOGLOBIN 30.1 pg (27.0-33.0); MEAN CORPUSCULAR HGB CONC 31.9 g/dl (32.0-36.5); MEAN CORPUSCULAR VOLUME 94.6 fl (80.0-96.0); MONO # 0.5 10^3/uL (0.0-0.8); MONO % 6.9 % (2.0-8.0); NEUTROPHILS # 4.7 10^3/uL (1.5-8.5); NEUTROPHILS % 64.3 % (36.0-66.0); PLATELET COUNT, AUTOMATED 200 10^3/uL (150-450); RED BLOOD COUNT 5.01 10^6/uL (4.00-5.40); WHITE BLOOD COUNT 7.3 10^3/uL (4.0-10.0)
[2024-01-20 06:21] LABS: ALBUMIN 3.5 G/DL (3.2-5.2); BILIRUBIN,TOTAL 0.6 MG/DL (0.3-1.2); CALCIUM LEVEL 10.4 MG/DL (8.3-10.6); CREATININE FOR GFR 2.11 MG/DL (0.55-1.30); GLOMERULAR FILTRATION RATE 24.9 (>45); POTASSIUM SERUM 6.3 MMOL/L (3.5-5.1); TOTAL PROTEIN 6.8 G/DL (5.7-8.2)
[2024-01-20] MEDS: NS 1,000 ML IV ONE ×3 (07:30→11:24)
[2024-01-20] MEDS ORDERED: LOPERAMIDE 2 MG CAPLET PO PRN (07:35)
[2024-01-20 08:20] LABS: RSV AMPLIFICATION NEGATIVE (NEGATIVE)
[2024-01-20] MEDS: GASTROGRAFIN SOLUTION 30ML PO SCH (08:30)
[2024-01-20] MEDS ORDERED: HUMA100I5 SC (09:06)
[2024-01-20] MEDS ORDERED: TIRZ10PE SC (09:06)
[2024-01-20] MEDS ORDERED: HOME MED LIST COMPLETE! XX SCH (09:10)
[2024-01-20] MEDS: LR 1,000 ML IV ONE (11:24)
[2024-01-20] MEDS: MIDODRINE 5 MG TAB PO ONE (11:30)
[2024-01-20] MEDS: LR 1,000 ML IV SCH (11:30)
[2024-01-20 12:05] LABS: IONIZED CALCIUM 5.2 MG/DL (4.5-5.3)
[2024-01-20] MEDS ORDERED: TEMAZEPAM 15 MG CAP PO PRN (13:30)
[2024-01-20] MEDS ORDERED: ACETAMINOPHEN 500 MG TAB PO PRN (13:30)
[2024-01-20 13:37] LABS: PROCALCITONIN 0.33 ng/ml
[2024-01-20 14:01] LABS: ALBUMIN 3.3 G/DL (3.2-5.2); BILIRUBIN,TOTAL 0.5 MG/DL (0.3-1.2); CALCIUM LEVEL 9.6 MG/DL (8.3-10.6); CREATININE FOR GFR 2.02 MG/DL (0.55-1.30); GLOMERULAR FILTRATION RATE 26.2 (>45); MAGNESIUM LEVEL 2.2 MG/DL (1.8-2.4); POTASSIUM SERUM 5.5 MMOL/L (3.5-5.1); TOTAL PROTEIN 6.1 G/DL (5.7-8.2)
[2024-01-20] MEDS: LOMOTIL 2.5MG/0.025MG TABLET PO ONE (14:09)
[2024-01-20] MEDS: GABAPENTIN 300 MG CAP PO SCH (16:28)
[2024-01-20] MEDS: PRAMIPEXOLE 1 MG TAB PO SCH (16:28)
[2024-01-20] MEDS: MIDODRINE 5 MG TAB PO SCH (16:29)
[2024-01-20] MEDS: LOMOTIL 2.5MG/0.025MG TABLET PO SCH (17:28)
[2024-01-20] MEDS: INSULIN LISPRO (NovoLOG) PER UNIT SC SCH (17:29)
[2024-01-20] MEDS: SODIUM BICARBONATE 325 MG TAB PO ONE (19:43)
[2024-01-20] MEDS: CALCIUM GLUCONATE 1,000 MG in D5W MINI-BAG PLUS 100 ML IV ONE (20:23)
[2024-01-20] MEDS: PATIROMER SORBITEX CALCIUM 8.4 GM POWDER PACKET (VELTASSA) PO ONE (20:23)
[2024-01-20] MEDS: SODIUM BICARBONATE 75 MEQ in NS 0.45% 1,000 ML IV SCH (21:34)
[2024-01-20] MEDS: EZETIMIBE 10MG TABLET (ZETIA) PO SCH (23:47)
[2024-01-20] MEDS: allopurinoL 100 MG TAB PO SCH (23:48)
[2024-01-20] MEDS: QUEtiapine FUMARATE 50MG TAB PO SCH (23:48)
[2024-01-20] MEDS: APIXABAN 5 MG TAB (ELIQUIS) PO SCH (23:48)
[2024-01-21] VITALS (7 sets, daily range): BP systolic 114–117; BP diastolic 50–56; TEMP 97.7–97.9; O2SAT 93–96
[2024-01-21 00:42] LABS: CALCIUM LEVEL 9.5 MG/DL (8.3-10.6); CREATININE FOR GFR 1.57 MG/DL (0.55-1.30); GLOMERULAR FILTRATION RATE 35.1 (>45); MAGNESIUM LEVEL 1.9 MG/DL (1.8-2.4); POTASSIUM SERUM 4.9 MMOL/L (3.5-5.1)
[2024-01-21] MEDS: LEVOTHYROXINE 137MCG TABLET (0.137MG) PO SCH (05:55)
[2024-01-21 07:05] LABS: CALCIUM LEVEL 9.7 MG/DL (8.3-10.6); CHOLESTEROL RISK RATIO 4.17 (<5); CREATININE FOR GFR 1.39 MG/DL (0.55-1.30); GLOMERULAR FILTRATION RATE 40.4 (>45); HDL CHOLESTEROL 28.5 MG/DL (>40); LDL CHOLESTEROL 63.7 MG/DL (<100); MAGNESIUM LEVEL 1.9 MG/DL (1.8-2.4); NON-HDL-C 90.5 MG/DL; POTASSIUM SERUM 4.9 MMOL/L (3.5-5.1)
[2024-01-21] MEDS: INSULIN LISPRO (NovoLOG) PER UNIT SC SCH (07:28)
[2024-01-21 07:39] LABS: IONIZED CALCIUM 5.5 MG/DL (4.5-5.3)
[2024-01-21] MEDS: LEVEMIR (INSULIN DETEMIR) 1 UNITS/0.01ML SC SCH (07:51)
[2024-01-21 08:08] LABS: HEMOGLOBIN A1c 6.9 % (4.0-6.0)
[2024-01-21] MEDS: SODIUM BICARBONATE 325 MG TAB PO ONE ×2 (08:50→14:36)
[2024-01-21] MEDS: PATIROMER SORBITEX CALCIUM 8.4 GM POWDER PACKET (VELTASSA) PO ONE ×2 (11:01→16:09)
[2024-01-21 12:11] LABS: IONIZED CALCIUM 5.2 MG/DL (4.5-5.3)
[2024-01-21 12:43] LABS: MAGNESIUM LEVEL 1.6 MG/DL (1.8-2.4)
[2024-01-21 12:44] LABS: CALCIUM LEVEL 9.7 MG/DL (8.3-10.6); CREATININE FOR GFR 1.19 MG/DL (0.55-1.30); GLOMERULAR FILTRATION RATE 48.3 (>45); POTASSIUM SERUM 4.9 MMOL/L (3.5-5.1)
[2024-01-21] MEDS: NS 1,000 ML IV ONE (14:31)
[2024-01-21 15:28] LABS: ANA PATTERN Nuclear, Speckled (NEGATIVE); ANA SCREEN, IFA POSITIVE (NEGATIVE)
[2024-01-21] MEDS: MAG SULF 1GM/100ML (MAG RUN) 1 GM in IV 1 EA IV ONE (15:35)
[2024-01-21] MEDS: MAGNESIUM OXIDE 400MG TAB (MAG-OX) PO ONE (17:41)
[2024-01-21] MEDS ORDERED: LOPERAMIDE 2 MG CAPLET PO PRN (18:25)
[2024-01-21 19:06] LABS: CALCIUM LEVEL 9.9 MG/DL (8.3-10.6); CREATININE FOR GFR 1.04 MG/DL (0.55-1.30); GLOMERULAR FILTRATION RATE 56.4 (>45); MAGNESIUM LEVEL 1.7 MG/DL (1.8-2.4); POTASSIUM SERUM 4.7 MMOL/L (3.5-5.1)
[2024-01-22 04:00] VITALS: BP 109/58; TEMP 97.5; O2SAT 97
[2024-01-22 07:11] LABS: CALCIUM LEVEL 9.5 MG/DL (8.3-10.6); CREATININE FOR GFR 1.03 MG/DL (0.55-1.30); GLOMERULAR FILTRATION RATE 57.1 (>45); POTASSIUM SERUM 4.8 MMOL/L (3.5-5.1)
[2024-01-22] MEDS: SODIUM BICARBONATE 325 MG TAB PO SCH (09:14)
[2024-01-22] MEDS ORDERED: CORE6.25 PO (10:56)
[2024-01-22] MEDS ORDERED: SODI650T PO (10:57)
[2024-01-22] MEDS: PATIROMER SORBITEX CALCIUM 8.4 GM POWDER PACKET (VELTASSA) PO ONE (11:34)
[2024-01-23 15:08] LABS: Chitobioside Carbohydrat (ACCA 19 units (0-90); Laminaribioside Carbohyd (ALCA 1 units (0-60); Mannobioside Carbohydrat (AMCA 67 units (0-100); Saccharomyces cerevisiae IgG A 4 units (0-50)
== END 2024-01-22 12:00 | disposition home or self-care (01) | DRG 683 ==
LOC: M ED 04:06 → M ED INP 04:07 → M MSPAV 09:07 → OBSVTOIN 01-21 08:07 → INTOOBSV 01-21 08:07
PROVIDERS: ADMIT General Practice; ATTEND General Practice
DX: N17.9 Acute kidney failure, unspecified (principal); E87.1 Hypo-osmolality and hyponatremia; E87.20 Acidosis, unspecified; R19.7 Diarrhea, unspecified; M35.00 Sjogren syndrome, unspecified; M06.9 Rheumatoid arthritis, unspecified; N18.30 Chronic kidney disease, stage 3 unspecified; I12.9 Hypertensive chronic kidney disease with stage 1 through stage 4 chronic kidney disease, or unspecified chronic kidney disease; E11.22 Type 2 diabetes mellitus with diabetic chronic kidney disease; E78.5 Hyperlipidemia, unspecified; F41.9 Anxiety disorder, unspecified; F32.A Depression, unspecified; E86.1 Hypovolemia; G25.81 Restless legs syndrome; M79.7 Fibromyalgia; M10.9 Gout, unspecified; G47.33 Obstructive sleep apnea (adult) (pediatric); E03.9 Hypothyroidism, unspecified; Z96.652 Presence of left artificial knee joint; I95.9 Hypotension, unspecified; E83.42 Hypomagnesemia; E83.52 Hypercalcemia; E86.0 Dehydration; K58.0 Irritable bowel syndrome with diarrhea; E87.5 Hyperkalemia; Z86.711 Personal history of pulmonary embolism; Z86.718 Personal history of other venous thrombosis and embolism; Z90.49 Acquired absence of other specified parts of digestive tract; Z87.891 Personal history of nicotine dependence; Z79.01 Long term (current) use of anticoagulants; Z79.4 Long term (current) use of insulin; Z79.890 Hormone replacement therapy; Z79.84 Long term (current) use of oral hypoglycemic drugs; Z79.899 Other long term (current) drug therapy; Z88.8 Allergy status to other drugs, medicaments and biological substances; Z91.018 Allergy to other foods; Z11.52 Encounter for screening for COVID-19

== ENCOUNTER 2024-02-22 15:34 | Emergency (ER) | payer MEDICARE, OTHER ==
[~2024-02-22] VITALS: Ht 165.1 cm; Wt 123.9 kg
[2024-02-22 15:34] VITALS: BP 141/67; TEMP 98.4; O2SAT 96
[~2024-02-22 15:34] MED LIST changes: +CORE6.25 PO; +ELIQ5TAB PO; +SODI650T PO; +TIRZ10PE SC
[2024-02-22] MEDS: TETRACAINE 0.5% OPHTH SOLN 4ML OS ONE (16:12)
[2024-02-22] MEDS: FLUORESCEIN OPHTH 1MG STRIP OS ONE (17:39)
== END 2024-02-22 17:58 | disposition home or self-care (01) ==
LOC: M ED 15:34
DX: T26.92XA Corrosion of left eye and adnexa, part unspecified, initial encounter (principal); I10 Essential (primary) hypertension; E11.9 Type 2 diabetes mellitus without complications; E78.5 Hyperlipidemia, unspecified; G47.33 Obstructive sleep apnea (adult) (pediatric); E03.9 Hypothyroidism, unspecified; G43.909 Migraine, unspecified, not intractable, without status migrainosus; Z88.6 Allergy status to analgesic agent; Z87.891 Personal history of nicotine dependence; Y92.009 Unspecified place in unspecified non-institutional (private) residence as the place of occurrence of the external cause; Y93.E5 Activity, floor mopping and cleaning; Y99.9 Unspecified external cause status; Z79.01 Long term (current) use of anticoagulants; Z79.4 Long term (current) use of insulin; Z79.899 Other long term (current) drug therapy

== ENCOUNTER → 2024-11-17 | Outpatient (REF) | payer MEDICARE, OTHER ==
[~2024-11-17] MED LIST changes: +GABA-1172 PO; +GABA-1490 PO; -GABA-282 PO; -GABA600T4 PO
== END ==
LOC: M LAB REF 14:38
PROVIDERS: ATTEND Nurse Practitioner Family
DX: R30.0 Dysuria (principal)

== ENCOUNTER 2025-03-24 17:53 | Emergency (ER) | payer MEDICARE, OTHER ==
[~2025-03-24] VITALS: Ht 162.6 cm; Wt 124.6 kg
[~2025-03-24 17:53] MED LIST changes: -BYDU2INJ7 SC; +EXEN2AUT SC; +LIDO1ADH93 TOP; -LIDO5DIS41 TOP
[2025-03-24] MEDS ORDERED: POTA-136 (18:10)
[2025-03-24] MEDS ORDERED: TORS10TA3 (18:10)
[2025-03-24] MEDS ORDERED: FENO135C6 (18:10)
[2025-03-24 21:25] VITALS: BP 169/77; TEMP 96.9; O2SAT 97
[2025-03-24] MEDS: LIDOCAINE VISCOUS 2% SOLN 15 ML UDC SS ONE (22:03)
== END 2025-03-24 22:15 | disposition home or self-care (01) ==
LOC: M ED 17:53
DX: R09.A2 Foreign body sensation, throat (principal); E11.9 Type 2 diabetes mellitus without complications; I10 Essential (primary) hypertension; E03.9 Hypothyroidism, unspecified; G47.33 Obstructive sleep apnea (adult) (pediatric); Z88.6 Allergy status to analgesic agent; Z88.8 Allergy status to other drugs, medicaments and biological substances; Z79.1 Long term (current) use of non-steroidal anti-inflammatories (NSAID); Z79.01 Long term (current) use of anticoagulants; Z79.2 Long term (current) use of antibiotics; Z79.4 Long term (current) use of insulin; Z79.84 Long term (current) use of oral hypoglycemic drugs; Z79.899 Other long term (current) drug therapy

== ENCOUNTER 2025-06-12 08:09 | Inpatient (IN) | payer MEDICARE, OTHER ==
[~2025-06-12] VITALS: Ht 162.6 cm; Wt 123.8 kg
[~2025-06-12 08:09] MED LIST changes: -EZET10TA21 PO; +EZET10TA57 PO; +POTA-136 PO; +TORS10TA3 PO
[2025-06-12] MEDS ORDERED: cefTRIAXone SOD 1 GM in DEXTROSE 5% (D5W) ADV/MINI-BAG 50 ML IV ONE (09:10)
[2025-06-12] MEDS: NS (Normal Saline) 0.9% 1,000 ML IV ONE (09:33)
[2025-06-12] MEDS: PIPERACILLIN/TAZOBACTAM SOD 3.375 GM in DEXTROSE 5% (D5W) ADV/MINI-BAG 50 ML IV ONE (09:33)
[2025-06-12 09:45] LABS: BASO # 0.1 10^3/uL (0.0-0.2); BASO % 0.9 % (0.0-1.0); EOS # 0.8 10^3/uL (0.0-0.5); EOS % 14.7 % (0.0-3.0); LYMPH # 1.4 10^3/uL (1.5-5.0); LYMPH % 26.6 % (24.0-44.0); MONO # 0.3 10^3/uL (0.0-0.8); MONO % 5.6 % (2.0-8.0); NEUTROPHILS # 2.7 10^3/uL (1.5-8.5); NEUTROPHILS % 51.6 % (36.0-66.0); PLATELET COUNT, AUTOMATED 144 10^3/uL (150-450)
[2025-06-12 10:09] LABS: ALT/SGPT 46.0 U/L (7.0-40); AST/SGOT 69.0 U/L (<34)
[2025-06-12] MEDS ORDERED: ISOVUE-370 76% 100 ML VIAL As Ordered ONE (10:37)
[2025-06-12] MEDS: VANCOMYCIN HCL 2,000 MG, VIAL MATE ADAPTER 1 EACH in NS 500 ML IV ONE (11:36)
[2025-06-12] MEDS: LIDOCAINE W/EPINEPHrine 1% 20 ML VIAL SC ONE (12:30)
[2025-06-12] MEDS: PRAMIPEXOLE 1 MG TAB PO SCH (13:00)
[2025-06-12] MEDS ORDERED: VANCOMYCIN HCL 1,000 MG, VIAL MATE ADAPTER 1 EACH in NS 250 ML IV SCH (14:35)
[2025-06-12] MEDS ORDERED: CARV6.25 PO (14:54)
[2025-06-12] MEDS ORDERED: METF-838 PO (14:59)
[2025-06-12] MEDS ORDERED: TIRZ12.5 SQ (15:02)
[2025-06-12] MEDS ORDERED: HOME MED LIST COMPLETE! XX SCH (15:05)
[2025-06-12] MEDS ORDERED: GLUCOSE 4 GM CHEW PO PRN (15:10)
[2025-06-12] MEDS ORDERED: ACETAMINOPHEN 500 MG TAB PO PRN (15:10)
[2025-06-12] MEDS ORDERED: TEMAZEPAM 15 MG CAP PO PRN (15:10)
[2025-06-12] MEDS ORDERED: GLUCAGON INJ 1 MG VIAL SC PRN (15:10)
[2025-06-12] MEDS ORDERED: DEXTROSE 50% 50 ML SYRINGE IV PRN (15:10)
[2025-06-12] MEDS: PIPERACILLIN/TAZOBACTAM SOD 4.5 GM in DEXTROSE 5% (D5W) ADV/MINI-BAG 50 ML IV SCH (15:35)
[2025-06-12 15:36] LABS: ESTIMATED AVERAGE GLUCOSE 189.0 MG/DL (60-110)
[2025-06-12 17:15] VITALS: BP 126/72; TEMP 97.2; O2SAT 98
[2025-06-12] MEDS: TORSEMIDE 10 MG TABLET PO SCH (17:29)
[2025-06-12] MEDS: POTASSIUM CHLORIDE 10MEQ SR TABLET PO SCH (17:30)
[2025-06-12] MEDS ORDERED: INSULIN LISPRO (NovoLOG) PER UNIT SC SCH ×2 (17:30→21:00)
[2025-06-12] MEDS: INSULIN LISPRO (NovoLOG) PER UNIT SC SCH ×2 (17:32→20:47)
[2025-06-12 20:40] VITALS: BP 123/58; TEMP 97.5; O2SAT 93
[2025-06-12] MEDS: APIXABAN 5 MG TAB PO SCH (20:54)
[2025-06-12] MEDS: LanTUS (INSULIN GLARGINE INJ) 1 UNITS/0.01 ML SC SCH (20:54)
[2025-06-12] MEDS: GABAPENTIN 300 MG CAP PO SCH (20:54)
[2025-06-12] MEDS: VANCOMYCIN HCL 750 MG, VIAL MATE ADAPTER 1 EACH in NS 250 ML IV SCH (20:54)
[2025-06-12] MEDS: EZETIMIBE 10 MG TABLET PO SCH (20:54)
[2025-06-12] MEDS: BACLOFEN 10 MG TAB PO SCH (20:55)
[2025-06-12] MEDS: QUEtiapine FUMARATE 50MG TAB PO SCH (20:55)
[2025-06-12] MEDS: ACETAMINOPHEN 325 MG TAB PO PRN (21:06)
[2025-06-13 04:26] VITALS: BP 110/54; TEMP 97.2; O2SAT 93
[2025-06-13] MEDS: LEVOTHYROXINE 137 MCG TABLET (0.137 MG) PO SCH (06:24)
[2025-06-13 07:20] LABS: PLATELET COUNT, AUTOMATED 141 10^3/uL (150-450)
[2025-06-13 07:43] LABS: CALCIUM LEVEL 8.7 MG/DL (8.3-10.6); CARBON DIOXIDE LEVEL 22.0 MMOL/L (20-31); CHLORIDE LEVEL 108.0 MMOL/L (98-107); CREATININE FOR GFR 0.98 MG/DL (0.55-1.30); GLOMERULAR FILTRATION RATE 63.3 (>45); POTASSIUM SERUM 3.9 MMOL/L (3.5-5.1); SODIUM LEVEL 141.0 MMOL/L (136-145)
[2025-06-13] MEDS: GABAPENTIN 300 MG CAP PO SCH (08:43)
[2025-06-13 12:00] VITALS: BP 121/60; TEMP 97.2; O2SAT 95
[2025-06-13 20:32] VITALS: BP 130/60; TEMP 97.2; O2SAT 93
[2025-06-14 04:28] VITALS: BP 124/58; TEMP 97.2; O2SAT 93
[2025-06-14 07:01] LABS: BASO # 0.0 10^3/uL (0.0-0.2); BASO % 0.9 % (0.0-1.0); EOS # 0.8 10^3/uL (0.0-0.5); EOS % 17.0 % (0.0-3.0); LYMPH # 1.2 10^3/uL (1.5-5.0); LYMPH % 27.3 % (24.0-44.0); MONO # 0.4 10^3/uL (0.0-0.8); MONO % 8.4 % (2.0-8.0); NEUTROPHILS # 2.1 10^3/uL (1.5-8.5); NEUTROPHILS % 45.7 % (36.0-66.0); PLATELET COUNT, AUTOMATED 154 10^3/uL (150-450)
[2025-06-14 07:33] LABS: ALT/SGPT 37.0 U/L (7.0-40); AST/SGOT 61.0 U/L (<34); CALCIUM LEVEL 9.2 MG/DL (8.3-10.6); CARBON DIOXIDE LEVEL 23.0 MMOL/L (20-31); CHLORIDE LEVEL 107.0 MMOL/L (98-107); CREATININE FOR GFR 0.95 MG/DL (0.55-1.30); GLOMERULAR FILTRATION RATE 65.7 (>45); POTASSIUM SERUM 3.8 MMOL/L (3.5-5.1); SODIUM LEVEL 141.0 MMOL/L (136-145)
[2025-06-14] MEDS: VANCOMYCIN HCL 1,000 MG, VIAL MATE ADAPTER 1 EACH in NS 250 ML IV SCH (08:34)
[2025-06-14 11:49] VITALS: BP_SYST 134; BP_DIAS 8; BP_DIAS 84; TEMP 97.2; O2SAT 93
[2025-06-14] MEDS: AUGMENTIN 875 MG TAB PO SCH (12:42)
[2025-06-14] MEDS: DOXYCYCLINE HYCLATE 100 MG TABLET PO SCH (20:31)
[2025-06-14 20:38] VITALS: BP 134/63; TEMP 98.7; O2SAT 91
[2025-06-15 03:46] VITALS: BP 117/55; TEMP 98.3; O2SAT 93
[2025-06-15 07:57] VITALS: BP 131/61
[2025-06-15] MEDS ORDERED: AMOX875T2 PO (11:52)
[2025-06-15] MEDS ORDERED: DOXY100C3 PO (11:52)
[2025-06-15 12:00] VITALS: BP 138/71; TEMP 98.4; O2SAT 95
== END 2025-06-15 15:34 | disposition home health service (06) | DRG 603 ==
LOC: M ED 08:09 → M ED INP 14:32 → M MSPAV 17:16
PROVIDERS: ADMIT Internal Medicine; ATTEND Internal Medicine
DX: L03.311 Cellulitis of abdominal wall (principal); I10 Essential (primary) hypertension; E11.51 Type 2 diabetes mellitus with diabetic peripheral angiopathy without gangrene; E03.9 Hypothyroidism, unspecified; E78.5 Hyperlipidemia, unspecified; L02.219 Cutaneous abscess of trunk, unspecified; E66.9 Obesity, unspecified; Z86.711 Personal history of pulmonary embolism; M06.9 Rheumatoid arthritis, unspecified; M10.9 Gout, unspecified; G25.81 Restless legs syndrome; M54.59 Other low back pain; F39 Unspecified mood [affective] disorder; M35.00 Sjogren syndrome, unspecified; Z87.891 Personal history of nicotine dependence; G47.33 Obstructive sleep apnea (adult) (pediatric); Z79.899 Other long term (current) drug therapy; Z79.4 Long term (current) use of insulin; Z79.890 Hormone replacement therapy; Z88.8 Allergy status to other drugs, medicaments and biological substances